=== PATIENT | male | born 1950 | race Caucasian/White ===

== ENCOUNTER → 2019-12-14 13:03 | Outpatient (BNVA) | payer OTHER, SELFPAY | PROVIDERS: Family Provider Nurse Practitioner; PCP Nurse Practitioner; Referring Provider Nurse Practitioner; Visit Provider Podiatrist Foot & Ankle Surgery | DX: M79.672 Pain in left foot (principal); M21.41 Flat foot [pes planus] (acquired), right foot; M21.42 Flat foot [pes planus] (acquired), left foot; M72.2 Plantar fascial fibromatosis | CPT/HCPCS: 73630 ==

== ENCOUNTER 2021-04-30 10:30 | Emergency (ER) | payer OTHER, MEDICARE, SELFPAY ==
[2021-04-30 11:30] VITALS: BP 148/77; PULSE 97; RESP 18; TEMP 37.3; O2SAT 97; BMI 24.4
[2021-04-30 13:12] LABS: Basophils # 0.1 10^3/uL (0.0-0.1); Basophils % 0.4 %; Eosinophils # 0.1 10^3/uL (0.0-0.8); Eosinophils % 0.5 %; Hematocrit 45.6 % (42.0-52.0); Hemoglobin 14.9 g/dL (11.7-16.6); Lymphocytes # 0.9 10^3/uL (0.8-4.8); Lymphocytes % 6.7 %; Mean Corpuscular HGB Conc 32.7 g/dL (30.0-36.0); Mean Corpuscular Hemoglobin 28.9 pg (28.0-34.0); Mean Corpuscular Volume 88.5 fl (80-94); Mean Platelet Volume 11.5 fL (7.4-10.4); Monocytes # 0.8 10^3/uL (0.2-0.9); Neutrophils # 11.26 10^3/uL (1.8-7.7); Neutrophils % 86.1 %; Nucleated Red Blood Cells % 0 %; Platelet Count 180 10^3/cmm (130-400); Red Blood Count 5.15 10^6/uL (4.1-5.3); White Blood Count 13.1 10^3/uL (4.0-10.0)
[2021-04-30 13:30] LABS: Alanine Aminotransferase 12 U/L (0-41); Albumin Level 4.2 g/dL (3.5-5.2); Alkaline Phosphatase 71 IU/L (40-130); Anion Gap 14.5 (5-19); Aspartate Amino Transferase 12 U/L (0-40); Blood Urea Nitrogen 13 mg/dL (8-23); Calcium 8.7 mg/dL (8.5-10.5); Carbon Dioxide 28 mmol/L (22-29); Chloride 100 mmol/L (98-107); Globulin 2.8 g/dL (1.3-4.6); Glucose 90 mg/dL (65-115); Osmolality Calculated 286 mOsm/kg (285-295); Potassium 4.5 mmol/L (3.5-5.1); Sodium 138 mmol/L (136-145); Total Bilirubin 0.5 mg/dL (0.15-1.2)
[2021-04-30 15:05] LABS: Add Urine Microscopic? YES; Bilirubin Urine 1+ (Negative); Blood Urine 2+ (Negative); Glucose Urine UA Norm (Normal); Ketones Urine 1+ (Negative); Leukocyte Esterase Urine 1+ (Negative); Nitrate Urine Positive (Negative); Protein Urine Neg (Negative); Specific Gravity, Urine 1.015 (1.005-1.030); Urine Appearance Cloudy (CLEAR); Urine Color Dark Yellow (Yellow); Urobilinogen Urine 1 mg/dL (Negative); pH Urine 5 (5-7)
[2021-04-30 15:06] LABS: Add Urine Culture? Yes; Bacteria Urine 4+ /hpf; Squamous Epithelial Cell Urine 0-4 /hpf (0-5); WBC Urine 25-40 /hpf (0-5)
--- NOTE | 2021-04-30 17:09 | ED_ITS ---
HPI - Male Genitourinary General: Chief complaint: Urogenital-Male Stated complaint: UTI COMPLICATIONS/EAR & MUSCLE ACHES/NAUSEA Time Seen by Provider: 04/30/21 16:54 History of Present Illness: HPI Narrative: Patient comes in complaining of muscle aches, nausea, vomiting, and dysuria. States his symptoms started 2 days ago. States that dysuria started yesterday and has gotten worse. He denies any flank pain, or fever. Associated symptoms: Reports dysuria, nausea and vomiting Review of Systems Const: Reports: body aches; Denies: fever(s) Eyes: Denies: change in vision or blurry vision ENMT: Denies: throat pain or odynophagia Card: Denies: chest pain or palpitations Resp: Denies: dyspnea or productive cough GI: Reports: nausea and vomiting; Denies: abdominal pain : Reports: dysuria; Denies: flank pain Musc: Denies: neck pain or back pain Skin/Breast: Denies: rash or pruritus Neuro: Denies: headache(s) or numbness in extremities Psych: Denies: anxiety or change in appetite Endo: Denies: polyuria or excessive sweating PFSH ED PFSH: Medical History Hypercholesteremia Social History Smoking and tobacco status: never smoked Alcohol intake: never Current occupational status: retired Physical Exam Const: COMMON NORMALS: no acute distress, patient oriented x3, healthy appearing and alert HENMT: COMMON NORMALS: normocephalic and atraumatic HEAD & SCALP: normocephalic and atraumatic Eye: COMMON NORMALS: Equal, round and reactive pupils present and EOMs intact bilaterally PUPIL: Yes Equal, round and reactive pupils present Neck/C-Spine: COMMON NORMALS: full ROM and supple Resp: COMMON NORMALS: normal respiratory effort, No retractions and No use of accessory muscles Cardio: COMMON NORMALS: regular rate and regular rhythm RATE: regular rate RHYTHM: regular rhythm GI: COMMON NORMALS: Normal to inspection, nondistended, normoactive bowel sounds present, Soft to palpation and non-tender PALPATION: Yes Soft to palpation Back/Pelvis: COMMON NORMALS: thoracic and lumbar spine normal to inspection and no thoracic nor lumbar tenderness Extremity: COMMON NORMALS: normal to inspection and full ROM Neuro: COMMON NORMALS: patient oriented x3 SENSORIUM/ORIENTATION: Yes alert Psych: COMMON NORMALS: mental status grossly normal and cooperative Skin: COMMON NORMALS: no rashes or lesions noted and no wounds GENERAL SKIN EXAM: no rashes or lesions noted Course ED course: Patient comes in due to not feeling well for the past couple of days. States he has had some nausea one episode of vomiting, body aches, and dysuria that started yesterday. Denies any flank pain, or fever. He has had chills. Labs done while in the waiting room are concerning for urinary tract infection. He states that he does not get frequent urinary tract infections. We will start him on antibiotics and discharge precautions return for worsening or changing symptoms. Vital Signs: Vital signs: Vital Signs Temperature 99.2 F 04/30/21 11:30 Pulse Rate 97 04/30/21 11:30 Respiratory Rate 18 04/30/21 11:30 Blood Pressure 148/77 04/30/21 11:30 Pulse Oximetry 97 04/30/21 11:30 MDM - Male Lab Data: Labs: Lab Results 04/30/21 04/30/21 04/30/21 11:00 12:57 12:57 WBC 13.1 10^3/uL H 10 ^3/uL (4.0-10.0) RBC 5.15 10^6/uL 10^6 /uL (4.1-5.3) Hgb 14.9 g/dL g/dL (11.7-16.6) Hct 45.6 % % (42.0-52.0) MCV 88.5 fl fl (80-94) MCH 28.9 pg pg (28.0-34.0) MCHC 32.7 g/dL g/dL (30.0-36.0) RDW 13.0 % % (12.1-15.1) Plt Count 180 10^3/cmm 10^3 /cmm (130-400) MPV 11.5 fL H fL (7.4-10.4) Neut % (Auto) 86.1 % % Lymph % (Auto) 6.7 % % [place] % (Auto) 6.0 % % Eos % (Auto) 0.5 % % Baso % (Auto) 0.4 % % Neut # (Auto) 11.26 10^3/uL H 1 0^3/uL (1.8-7.7) Lymph # (Auto) 0.9 10^3/uL 10^3/ uL (0.8-4.8) [place] # (Auto) 0.8 10^3/uL 10^3/ uL (0.2-0.9) Eos # (Auto) 0.1 10^3/uL 10^3/ uL (0.0-0.8) Baso # (Auto) 0.1 10^3/uL 10^3/ uL (0.0-0.1) Nucleated RBC % (a uto) 0 % % Nucleated RBCs # 0.0 /100WBC /100W BC Sodium 138 mmol/L mmol/L (136-145) Potassium 4.5 mmol/L mmol/L (3.5-5.1) Chloride 100 mmol/L mmol/L (98-107) Carbon Dioxide 28 mmol/L mmol/L (22-29) Anion Gap 14.5 (5-19) BUN 13 mg/dL mg/dL (8-23) Creatinine 1.0 mg/dL mg/dL (0.7-1.2) GFR Calculation Not Reportable Glucose 90 mg/dL mg/dL (65-115) Calculated Osmolal ity 286 mOsm/kg mOsm/ kg (285-295) Calcium 8.7 mg/dL mg/dL (8.5-10.5) Total Bilirubin 0.5 mg/dL mg/dL (0.15-1.2) AST 12 U/L U/L (0-40) ALT 12 U/L U/L (0-41) Alkaline Phosphata se 71 IU/L IU/L (40-130) Total Protein 7.0 g/dL g/dL (6.6-8.7) Albumin 4.2 g/dL g/dL (3.5-5.2) Globulin 2.8 g/dL g/dL (1.3-4.6) Urine Color Dark yellow (Yellow) Urine Appearance Cloudy (CLEAR) Urine pH 5 (5-7) Ur Specific Gravit y 1.015 (1.005-1.030) Urine Protein Neg (Negative) Urine Glucose (UA) Norm (Normal) Urine Ketones 1+ H (Negative) Urine Blood 2+ H (Negative) Urine Nitrate Positive H (Negative) Urine Bilirubin 1+ H (Negative) Urine Urobilinogen 1 mg/dL H mg/dL (Negative) Ur Leukocyte Rufina ase 1+ H (Negative) Urine RBC 5-10 /hpf H /hpf (0-2) Urine WBC 25-40 /hpf H /hpf (0-5) Ur Squamous Epith Cells 0-4 /hpf H /hpf (0-5) Amorphous Sediment Not Reportable Urine Bacteria 4+ /hpf H /hpf (NONE) Discharge Plan Discharge Patient Disposition: Home Clinical Impression: Urinary tract infection Qualifiers: Urinary tract infection type: acute cystitis Hematuria presence: without hematuria Qualified Code(s): N30.00 - Acute cystitis without hematuria Condition: Stable Prescriptions: New ciprofloxacin HCl 250 mg tablet 250 mg PO Q12H Qty: 10 RF: 0 No Action naproxen 500 mg tablet 500 mg PO BID RF: 0 simvastatin 20 mg tablet 20 mg PO DAILY RF: 0 (DME) Custom Accomadative orthotic with deep heel cup See Rx Instructions .ROUTE .MEDSUPPLY Qty: 1 RF: 0 Discharge Orders: Discharge ED (Routine); Ordered 04/30/21 Ordered By: Niko Sloan Referrals: Renate Corrales FNP [Primary Care Provider] - Activity Restrictions/Additional Instructions: Return to the emergency department for worsening abdominal pain, uncontrolled vomiting, or if your abdomen gets hard or distended. Coding Level of Care Code ED Professional Skateboarder for Javier Almanza
[2021-04-30 17:22] VITALS: BP 132/76; PULSE 80; RESP 17; O2SAT 97
== END 2021-04-30 17:24 | disposition home or self-care (01) ==
PROVIDERS: Physician Assistant; Emergency Provider Emergency Medicine; PCP Nurse Practitioner
DX: N30.00 Acute cystitis without hematuria (principal)
CPT/HCPCS: 80053; 81001; 85025; 87077; 87086; 87186; 99283

== ENCOUNTER 2021-09-11 15:10 | Outpatient (CLI) | payer OTHER, SELFPAY ==
--- NOTE | 2021-09-11 15:22 | USCV_ITS ---
Sixto Starks Age: 70 Gender: M : 1950 Exam Date: 09/11/2021 16:16 Ordering Phys: Renate Corrales Technologist: Santosh Bee [place] [facility] [place]: memory loss, fatigue Risk Factors: Previous Vascular Surgery: Right Brachial BP: / Left Brachial BP: / Right Left Velocity (cm/s) Spectral Plaque Velocity (cm/s) Spectral Plaque Syst/Diast Broadening Syst/Diast Broadening 106.90/24.30 Prox CCA 129.00/ 29.80 94.80/ 18.70 Mid CCA 77.20 / 17.60 71.70/ 19.80 Distal CCA 80.50 / 19.80 73.90/ 12.10 Prox ICA 95.90 / 33.10 78.30/ 28.70 Mid ICA 65.10 / 28.70 63.90/ 27.60 Distal ICA 70.60 / 37.50 127.90 ECA 90.40 0.83 ICA/CCA 0.84 Antegrade Vertebral Antegrade 48.00/ 14.50 cm/s 47.30/ 13.10 cm/s Tri Subclavian Tri 95.70 78.20 CONCLUSIONS Right ICA stenosis <50%. Intimal thickening Right cca. Moderate atheromatous plaque right carotid bulb/ICA. Left ICA stenosis <50%. Intimal thickening Left cca. Moderate plaque mid left CCA. Moderate atheromatous plaque left carotid bulb/ICA. Normal antegrade Doppler flow noted in the right vertebral artery. Normal antegrade Doppler flow noted in the left vertebral artery. Reji Cartwright MD (Electronically Signed) Final Date: 11 Sep 2021 16:58 S
== END 2021-09-11 15:11 | disposition home or self-care (01) ==
LOC: RAD 15:20
PROVIDERS: PCP Nurse Practitioner; Visit Provider Nurse Practitioner
DX: I65.23 Occlusion and stenosis of bilateral carotid arteries (principal); R41.3 Other amnesia; R53.83 Other fatigue
CPT/HCPCS: 93880

== ENCOUNTER 2021-09-15 20:00 | Outpatient (CLI) | payer OTHER, SELFPAY | END 2021-09-15 20:01 | disposition home or self-care (01) | LOC: SLEEP 09-16 06:40 | PROVIDERS: PCP Nurse Practitioner; Visit Provider Nurse Practitioner | DX: G47.33 Obstructive sleep apnea (adult) (pediatric) (principal); R53.83 Other fatigue; R41.3 Other amnesia; R09.02 Hypoxemia | CPT/HCPCS: 95810 ==

== ENCOUNTER 2021-10-01 08:46 | Outpatient (CLI) | payer OTHER, SELFPAY ==
--- NOTE | 2021-10-01 08:52 | CT_ITS ---
WS: [id number] CT NECK TECHNIQUE: Contrast-enhanced CT of the neck with coronal and sagittal reformatted images. CLINICAL INFORMATION: LOCALIZED SWELLING,MASS, LUMP, NECK COMPARISON: None. DLP: 284.[address] scans at [facility] use at least one of these dose optimization techniques: automated e xposure control; mA and/or kV adjustment per patient size (includes targeted exams where dose is matc hed to clinical indication); or iterative reconstruction. FINDINGS: Dental artifact degrades some images at the tongue base. Enhancing solid soft tissue lesion in the RI GHT floor of mouth and sublingual space appears to involve the RIGHT sublingual gland and adjacent to or involving the RIGHT mylohyoid. This is deep to the RIGHT mandible with no evidence of mandibular erosion. Findings suspicious for neoplasm and recommend further evaluation with direct visualization. Mild mucosal thickening ethmoid air cells. 11 mm retention cyst LEFT maxillary sinus. Mild mucosal th ickening sphenoid sinus. Mastoid air cells well aerated. Parotid glands are normal. Normal submandibu lar glands. Normal parapharyngeal fat. Normal posterior nasopharynx. Normal vallecula and piriform si nuses. Normal epiglottis. No evidence of supraglottic or glottic mass. Normal thyroid gland. Lung api sugar are well aerated. No cervical lymphadenopathy. Moderate spondylitic changes cervical spine. Slight anterolisthesis C7 o n T1. CT/CT neck w con* [id number] IMPRESSION: 1. Enhancing 1.7 x 1.0 cm solid appearing lesion along the RIGHT floor of the mouth sublingual space likely involving the sublingual gland and adjacent to th e mylohyoid. No evidence of bony erosion. Findings suspicious for neoplasm and recommend further evaluation with direct visualization. This can also be evalua jena with MRI without and with gadolinium enhancement. 2. No cervical lymphadenopathy. 3. No evidence of supraglottic or glottic mass. 4. Normal submandibular and parotid glands.
[2021-10-01 09:53] LABS: Blood Urea Nitrogen 13 mg/dL (8-23)
[2021-10-01] MEDS: iohexol 300 mg/mL 50 mL Btl IV (09:53)
== END 2021-10-01 08:47 | disposition home or self-care (01) ==
LOC: RAD 08:48
PROVIDERS: PCP Nurse Practitioner; Visit Provider Specialist
DX: R22.1 Localized swelling, mass and lump, neck (principal)
CPT/HCPCS: 70491; 82565; 84520

== ENCOUNTER 2021-10-20 10:01 | Outpatient (CLI) | payer OTHER, SELFPAY ==
--- NOTE | 2021-10-20 10:15 | MR_ITS ---
WS: [id number] MRI NECK with and without CONTRAST. COMPARISON: CT 10/01/2021 Multiplanar, multisequence imaging is performed with and without contrast. Sagittal and axial T1 fat sat sequences post-ProHance 17 cc IV. Marker is placed along the RIGHT mandible in the patient directed area of palpable abnormality. At th is site there is no mass or distortion of the soft tissues. No mass is identified. Again noted is the mild asymmetry of the RIGHT mylohyoid muscle as compared to the LEFT. This was als o seen on the recent CT. There is very mild enhancement and enlargement of the RIGHT mylohyoid muscle . On today's examination there some very mild thickening and asymmetry of the mylohyoid muscle but I cannot see a discrete mass. Soft tissue involving the tongue base and through the oropharynx and naso pharynx are negative. No cervical chain lymph nodes are identified. Mild mucoperiosteal thickening and small mucous retention cysts in the maxillary sinuses. Submandibul ar glands and the parotid glands are negative. Mild cervical spondylitic changes. Upper lung lewis are negative. MR/MR orbit face neck wo/w* [id number] IMPRESSION: 1. No soft tissue mass or signal abnormality in the region of the palpable abn ormality over the RIGHT mandible as directed by the patient. 2. Again noted is mild asymmetry and enlargement of the RIGHT mylohyoid muscle as compared to the LEFT. No discrete enhancing mass identified. This may be a very subtle lesion as noted on a prior neck CT. Minimal change in signal. Biops y may be necessary to exclude an underlying lesion. 3. No cervical chain adenopathy.
== END 2021-10-20 10:02 | disposition home or self-care (01) ==
LOC: RAD 10:04
PROVIDERS: PCP Nurse Practitioner; Visit Provider Otolaryngology
DX: D37.09 Neoplasm of uncertain behavior of other specified sites of the oral cavity (principal)
CPT/HCPCS: 70543

== ENCOUNTER 2021-10-28 12:30 | Outpatient (CLI) | payer OTHER, SELFPAY ==
--- NOTE | 2021-10-28 12:58 | ECG_ITS ---
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 Measurements Intervals [place] Rate: 74 P: 82 UT: 188 QRS: 84 QRSD: 114 T: 66 QT: 373 QTc: 416 Interpretive Statements SINUS RHYTHM INCOMPLETE RIGHT BUNDLE BRANCH BLOCK [90+ ms QRS DURATION, TERMINAL R IN V1/V2, 40+ ms S IN I/aVL/V4/V5/V6] No previous ECG available for comparison Electronically Signed On 10-28-2021 20:14:12 CDT by Oz Bolton M.D. [id number]
== END 2021-10-28 12:31 | disposition home or self-care (01) ==
LOC: RT 12:31
PROVIDERS: PCP Nurse Practitioner; Visit Provider Specialist
DX: Z01.810 Encounter for preprocedural cardiovascular examination (principal); R22.0 Localized swelling, mass and lump, head; I45.10 Unspecified right bundle-branch block
CPT/HCPCS: 93005

== ENCOUNTER 2021-11-21 10:50 | Observation (INO) | payer OTHER, MEDICARE, SELFPAY ==
[2021-11-21] VITALS (8 sets, daily range): BP systolic 123–143; BP diastolic 67–91; PULSE 70–88; RESP 15–23; TEMP 36.8–36.9; O2SAT 93–96; BMI 23.1
--- NOTE | 2021-11-21 11:16 | ECG_ITS ---
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 Measurements Intervals [place] Rate: 77 P: 76 NE: 180 QRS: 65 QRSD: 110 T: 56 QT: 372 QTc: 423 Interpretive Statements SINUS RHYTHM INCOMPLETE RIGHT BUNDLE BRANCH BLOCK [90+ ms QRS DURATION, TERMINAL R IN V1/V2, 40+ ms S IN I/aVL/V4/V5/V6] Compared to ECG 11/21/2021 13:54:58 Ventricular premature complex(es) no longer present Electronically Signed On 11-21-2021 20:29:32 CDT by Gelacio Espinal M.D. [email or web address] [email or web address]/store/[id number] f
--- NOTE | 2021-11-21 11:16 | XR_ITS ---
WS: [id number] XR chest 1V portable [id number] REASON FOR EXAM: dyspnea/cough FINDINGS: Mild tortuosity and ectasia of the thoracic aorta. Normal heart size. Calcified granulomatous disease in both hemithoraces. No lung nodule or lung mass. No acute pulmonary parenchymal or pleural abnormality. Previous rotator cuff tendon repair right shoulder. Mild thoracic scoliosis convex left with changes of degenerative spondylosis. XR/XR chest 1V portable [id number] IMPRESSION: No acute chest abnormality.
[2021-11-21 12:02] LABS: Basophils % 0.3 %; Eosinophils % 0.3 %; Hematocrit 42.3 % (42.0-52.0); Hemoglobin 13.8 g/dL (11.7-16.6); Lymphocytes # 0.8 10^3/uL (0.8-4.8); Lymphocytes % 6.5 %; Mean Corpuscular HGB Conc 32.6 g/dL (30.0-36.0); Mean Corpuscular Hemoglobin 29.4 pg (28.0-34.0); Mean Platelet Volume 11.6 fL (7.4-10.4); Monocytes % 8.1 %; Neutrophils # 9.92 10^3/uL (1.8-7.7); Neutrophils % 84.4 %; Nucleated Red Blood Cells % 0 %; Platelet Count 153 10^3/cmm (130-400); Red Cell Distribution Width 12.9 % (12.1-15.1); White Blood Count 11.8 10^3/uL (4.0-10.0)
--- NOTE | 2021-11-21 12:16 | W.ED.CHESTPA ---
HPI - Chest Pain General: Chief Complaint: Chest Pain Stated Complaint: chest pain Time Seen by Provider: 11/21/21 11:12 Source: patient Mode of arrival: ambulatory Limitations: no limitations History of Present Illness: 70-year-old male comes in complaining of having had 2 syncopal episodes this morning. She recently had a surgery to remove a mass under his tongue and he was having follow-up with his primary care and had these brief syncopal episodes. He also had some accompanying chest discomfort that lasted just a few minutes and is resolved now he did receive aspirin at the [place]. He is completely asymptomatic at this time. No history of coronary disease patient has no history of stroke he is not diabetic. Does have a history of hyperlipidemia. MD complaint: chest pain Onset (ago): hour(s) Prior episodes: No Onset: during rest Pain location: left chest Pain radiation: none Severity: mild Quality: sharp Relieving factors: nothing Exacerbating factors: nothing Associated symptoms: Deny abdominal pain, diaphoresis, dyspnea, fever(s), leg edema, nausea, palpitations, sense of impending doom, syncope or vomiting Treatment prior to arrival: none Review of Systems Const: Denies: fever(s), chills, body aches, fatigue, malaise or diaphoresis ENMT: Denies: throat pain, ear or mastoid pain, nasal discharge or nasal congestion Card: Denies: chest pain, palpitations or syncope Resp: Denies: dyspnea, productive cough, non-productive cough or wheezing GI: Denies: abdominal pain, nausea or vomiting : Denies: flank pain, difficulty urinating, dysuria, urinary frequency or urinary urgency Skin/Breast: Denies: rash or pruritus Neuro: Denies: headache(s) PFSH ED PFSH: Medical History History of malignant melanoma Hypercholesteremia Rotator cuff arthropathy of right shoulder Social History Smoking and tobacco status: former smoker Alcohol intake: never Current occupational status: retired Physical Exam Const: GENERAL APPEARANCE: cooperative and comfortable ORIENTATION/CONSCIOUSNESS: Yes awake, Yes oriented to person, Yes oriented to place and Yes oriented to time HENMT: COMMON NORMALS: normocephalic, atraumatic and hearing grossly normal bilaterally HEAD & SCALP: normocephalic and atraumatic Eye: COMMON NORMALS: Equal, round and reactive pupils present, EOMs intact bilaterally, conjunctivae normal and no scleral icterus CONJUNCTIVA: Yes conjunctivae normal PUPIL: Yes Equal, round and reactive pupils present Lymph: LYMPHATIC: no lymphadenopathy noted and no lymphedema noted Resp: COMMON NORMALS: normal respiratory effort, No retractions, No use of accessory muscles and clear to auscultation bilaterally AUSCULTATION: clear to auscultation bilaterally Cardio: COMMON NORMALS: regular rate, regular rhythm and No murmurs present (Cardio) RATE: regular rate RHYTHM: regular rhythm GI: COMMON NORMALS: Soft to palpation and No hepatosplenomegaly present AUSCULTATION: Yes normoactive bowel sounds PALPATION: Yes Soft to palpation, No Tenderness to palpation present (GI), No Guarding due to palpation present (GI) and Yes No hepatosplenomegaly present Extremity: COMMON NORMALS: normal to inspection, capillary refill normal, no clubbing, cyanosis or edema, no calf tenderness and no pedal edema Neuro: SENSORIUM/ORIENTATION: Yes oriented to person, Yes oriented to place and Yes oriented to time Skin: COMMON NORMALS: no rashes or lesions noted GENERAL SKIN EXAM: no rashes or lesions noted Course Vital Signs: Vital signs: Vital Signs Temperature 98.5 F 11/21/21 11:06 Pulse Rate 83 11/21/21 16:13 Respiratory Rate 17 11/21/21 16:13 Blood Pressure 143/91 11/21/21 16:13 Pulse Oximetry 93 11/21/21 16:13 MDM - Chest Pain Medical Decision Making Second troponin came back negative and we are getting close to having the patient discharged and he had a nonsustained run of V. tach. He was asymptomatic with this. Given his 2 syncopal episodes that seem to be without provocation this is concerning we will admit the patient discussed with hospitalist and consulted cardiology Medical Records I reviewed the patient's medical records. Lab Data I reviewed the patient's lab results. : 11/21/21 11:55 11/21/21 11:35 Radiology Impressions Chest X-Ray 11/21/21 11:16 IMPRESSION: No acute chest abnormality. Laboratory Results WBC 11.8 10^3/uL (4.0-10.0) H 11/21/21 11:55 Corrected WBC Cancelled 11/21/21 11:35 RBC 4.70 10^6/uL (4.1-5.3) 11/21/21 11:55 Hgb 13.8 g/dL (11.7-16.6) 11/21/21 11:55 Hct 42.3 % (42.0-52.0) 11/21/21 11:55 MCV 90.0 fl (80-94) 11/21/21 11:55 MCH 29.4 pg (28.0-34.0) 11/21/21 11:55 MCHC 32.6 g/dL (30.0-36.0) 11/21/21 11:55 RDW 12.9 % (12.1-15.1) 11/21/21 11:55 Plt Count 153 10^3/cmm (130-400) 11/21/21 11:55 MPV 11.6 fL (7.4-10.4) H 11/21/21 11:55 Gran % Cancelled 11/21/21 11:35 Neut % (Auto) 84.4 % 11/21/21 11:55 Lymph % (Auto) 6.5 % 11/21/21 11:55 [place] % (Auto) 8.1 % 11/21/21 11:55 Eos % (Auto) 0.3 % 11/21/21 11:55 Baso % (Auto) 0.3 % 11/21/21 11:55 Neut # (Auto) 9.92 10^3/uL (1.8-7.7) H 11/21/21 11:55 Lymph # (Auto) 0.8 10^3/uL (0.8-4.8) 11/21/21 11:55 [place] # (Auto) 1.0 10^3/uL (0.2-0.9) H 11/21/21 11:55 Eos # (Auto) 0.0 10^3/uL (0.0-0.8) 11/21/21 11:55 Baso # (Auto) 0.0 10^3/uL (0.0-0.1) 11/21/21 11:55 Absolute Gran (auto) Cancelled 11/21/21 11:35 Nucleated RBC % (auto) 0 % 11/21/21 11:55 Nucleated RBCs # 0.0 /100WBC 11/21/21 11:55 Sodium 139 mmol/L (136-145) 11/21/21 11:35 Potassium 4.5 mmol/L (3.5-5.1) 11/21/21 11:35 Chloride 101 mmol/L (98-107) 11/21/21 11:35 Carbon Dioxide 27 mmol/L (22-29) 11/21/21 11:35 Anion Gap 15.5 (5-19) 11/21/21 11:35 BUN 21 mg/dL (8-23) 11/21/21 11:35 Creatinine 1.1 mg/dL (0.7-1.2) 11/21/21 11:35 GFR Calculation Not Reportable 11/21/21 11:35 Glucose 99 mg/dL (65-115) 11/21/21 11:35 Calculated Osmolality 291 mOsm/kg (285-295) 11/21/21 11:35 Calcium 9.6 mg/dL (8.5-10.5) 11/21/21 11:35 Total Bilirubin 0.6 mg/dL (0.15-1.2) 11/21/21 11:35 AST 13 U/L (0-40) 11/21/21 11:35 ALT 13 U/L (0-41) 11/21/21 11:35 Alkaline Phosphatase 60 IU/L (40-130) 11/21/21 11:35 Troponin T Baseline 16 ng/L (0-15) H 11/21/21 11:35 Troponin T 120 Minute 16.07 ng/L (0-15) H 11/21/21 13:50 Delta Troponin T 0.07 ABS# (0-10) 11/21/21 13:50 Total Protein 6.5 g/dL (6.6-8.7) L 11/21/21 11:35 Albumin 4.6 g/dL (3.5-5.2) 11/21/21 11:35 Globulin 1.9 g/dL (1.3-4.6) 11/21/21 11:35 Discharge Plan Discharge Patient Disposition: Admitted As Inpatient Clinical Impression: Ventricular tachyarrhythmia, Syncope Condition: Stable Coding Level of Care Code ED Lead Accountant for Javier Fwd Exam Comprehensive NIH stroke score NIHSS Level Of Consciousness - 1a: 0 Level Of Consciousness Questions - 1b: Both Correct Level Of Consciousness Commands - 1c: Both Correct Best Gaze - 2: Normal Visual Price - 3: No Visual Loss Facial Palsy - 4: Normal Motor Arm Right - 5: No Drift Motor Arm Left - 5: No Drift Motor Leg Right - 6: No Drift Motor Leg Left - 6: No Drift Limb Ataxia - 7: Absent Sensory - 8: Normal Best Language - 9: No Aphasia Dysarthia - 10: Normal Extinction And Inattention - 11: 0 Score Total Score: 0
[2021-11-21 12:22] LABS: Alanine Aminotransferase 13 U/L (0-41); Albumin Level 4.6 g/dL (3.5-5.2); Alkaline Phosphatase 60 IU/L (40-130); Aspartate Amino Transferase 13 U/L (0-40); Blood Urea Nitrogen 21 mg/dL (8-23); Calcium 9.6 mg/dL (8.5-10.5); Carbon Dioxide 27 mmol/L (22-29); Chloride 101 mmol/L (98-107); Globulin 1.9 g/dL (1.3-4.6); Glucose 99 mg/dL (65-115); Osmolality Calculated 291 mOsm/kg (285-295); Sodium 139 mmol/L (136-145); Total Bilirubin 0.6 mg/dL (0.15-1.2); Total Protein 6.5 g/dL (6.6-8.7); Troponin(5th) Baseline 16 ng/L (0-15)
[2021-11-21 12:25] LABS: Anion Gap 15.5 (5-19); Potassium 4.5 mmol/L (3.5-5.1)
--- NOTE | 2021-11-21 13:16 | ECG_ITS ---
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 Measurements Intervals [place] Rate: 85 P: 76 [place]: 168 QRS: 66 QRSD: 114 T: 53 QT: 363 QTc: 432 Interpretive Statements SINUS RHYTHM WITH OCCASIONAL VENTRICULAR PREMATURE COMPLEXES INCOMPLETE RIGHT BUNDLE BRANCH BLOCK [90+ ms QRS DURATION, TERMINAL R IN V1/V2, 40+ ms S IN I/aVL/V4/V5/V6] Compared to ECG 11/21/2021 11:03:19 Ventricular premature complex(es) now present Electronically Signed On 11-21-2021 20:32:30 CDT by Gelacio Espinal M.D. [id number]
[2021-11-21 14:19] LABS: Troponin 5 2HR 16.07 ng/L (0-15)
[2021-11-21 14:23] LABS: Troponin 5 2HR Delta 0.07 ABS# (0-10)
--- NOTE | 2021-11-21 15:36 | USCV_ITS ---
Sixto Starks Age: 70 Gender: M : 1950 Exam Date: 11/21/2021 15:58 Ordering Phys: Gustavo Scott MD Technologist: JOSE LUIS Exam Location: [facility] [place] Indication: chest pain BP: 143 / 91 HR: 122 Rhythm: Sinus Technical Quality: adequate MEASUREMENTS (Male / Female) Normal Values 2D ECHO LV Diastolic Diameter PLAX 5.0 cm 4.2 - 5.9 / 3.9 - 5.3 cm LV Systolic Diameter PLAX 3.0 cm IVS Diastolic Thickness 1.0 cm 0.6 - 1.0 / 0.6 - 0.9 cm IVS Systolic Thickness 1.5 cm LVPW Diastolic Thickness 1.1 cm 0.6 - 1.0 / 0.6 - 0.9 cm LVPW Systolic Thickness 1.7 cm LVOT Diameter 2.0 cm LV Ejection Fraction 2D Teich 71.2 % LV Ejection Fraction MOD 2C 54.9 % LV Ejection Fraction 2C AL 53.9 % LA Diameter 3.7 cm LA Width 4.2 cm LA Height 5.7 cm Aorta at Sinotubular Diameter 2.5 cm M-MODE MV E Point Septal Separation 0.5 cm DOPPLER AV Peak Velocity 143.0 cm/s LVOT Peak Velocity 90.0 cm/s AV Area Cont Eq vti 2.2 cm squared AV Area Cont Eq pk 2.1 cm squared MV Area PHT 4.5 cm squared Mitral E to A Ratio 0.7 MV E' Velocity 32.0 cm/s Mitral E to MV E' Ratio 6.8 Mitral E to LV E' Lateral Ratio 8.0 Mitral E to LV E' Septal Ratio 6.0 TR Peak Velocity 360.7 cm/s TR Peak Gradient 52.0 mmHg Right Atrial Pressure 5.0 mmHg Pulmonary Artery Systolic Pressu 57.0 mmHg PV Peak Velocity 67.0 cm/s FINDINGS Left Ventricle Normal LV size with a borderline low ejection fraction of 50 to 55%. Mild hypokinesis of the anteroapical region. Right Ventricle The right ventricle is normal in size and function. Right Atrium Mildly increased right atrial size. Left Atrium Mildly increased left atrial size. Mitral Valve Thickened mitral valve. Aortic Valve No gross abnormalities noted Tricuspid Valve Trace tricuspid valve regurgitation. Pulmonic Valve No gross abnormalities noted Pericardium No pericardial effusion. Aorta Normal ascending aorta dimension. IVC Normal inferior vena cava. CONCLUSIONS Normal LV size with a borderline low ejection fraction of 50 to 55%. Wall motion abnormality as mentioned above Mild biatrial enlargement. Trace tricuspid valve regurgitation. There is no pericardial effusion. There are no intracardiac masses. No similar previous studies are available for comparison Dr Oz Bolton MD FAC (Electronically Signed) Final Date: 21 November 2021 19:13 S
--- NOTE | 2021-11-21 15:37 | P.HP_ITS ---
Providers/Chief Complaint Primary Care Provider: SYDNEY De La Garza Chief Complaint: chest pain History of Present Illness Sixto Starks is a 70 year old male with past medical history of malignant melanoma, came to the ER from his ENT clinic Where patient likely had presyncopal episode, when I talked to the patient he denied any evident loss of consciousness, though he said that he felt lightheaded, patient was also complaining of mild substernal chest tightness, denied any nausea vomiting, diaphoresis, Headache, further work-up in the ER revealed nonsustained ventricular tachycardia. Pertinent imaging studies: X-ray chest: No acute findings EKG: Sinus rhythm with occasional PVCs, incomplete right bundle branch block Pertinent labs: WBC 11.8, H&H:13/42 , PLT : 153 , sodium 139 potassium 4.5 , BUN serum creatinine: 21/1.1 , Troponin: 16 , 16 , 13 Review of Systems 2 General: Reports: 10 or more systems reviewed and unremarkable except in HPI and below Const: Denies: fever(s), chills, body aches, change in appetite or diaphoresis Card: Denies: palpitations, edema, swelling of feet/ankles, dyspnea on exertion, orthopnea or leg pain with exertion Resp: Denies: dyspnea, productive cough, wheezing or pain on inspiration GI: Denies: abdominal pain, nausea, vomiting, diarrhea or constipation : Denies: flank pain or difficulty urinating Musc: Denies: back pain, extremity pain or extremity swelling Neuro: Denies: headache(s), difficulty walking or confusion Medications/Allergies Home Medications Medication Instructions Recorded Confirmed Last Taken Type Custom Accomadative orthotic with #1 each 12/14/19 11/21/21 Unknown Rx deep heel cup simvastatin 20 mg tablet 20 mg PO DAILY 12/14/19 11/21/21 11/20/21 History celecoxib 100 mg capsule 100 mg PO BID 10/06/21 11/21/21 Unknown History lidocaine HCl 4 % topical cream 1 applic TOPICAL BID 10/06/21 11/21/21 Unknown History (Aspercreme (lidocaine HCl)) testosterone 20.25 mg/1.25 gram 1 pump TOPICAL DAILY 10/06/21 11/21/21 11/20/21 History (1.62 %) transdermal gel pump (AndroGel) ketoconazole 2 % shampoo 1 applic TOPICAL .2 x weekly #120 10/16/21 11/21/21 Unknown Rx ml fluocinolone 0.01 % scalp oil and 1 ea TOPICAL DAILY #118.28 ml 11/07/21 11/21/21 Unknown Rx shower cap clindamycin HCl 300 mg capsule 300 mg PO QID 11/21/21 11/21/21 11/20/21 History Allergies Allergy/AdvReac Type Severity Reaction Status Date / Time terbinafine Allergy loss of Verified 11/21/21 12:02 taste PFSH Acute PFSH: Medical History History of malignant melanoma Hypercholesteremia Rotator cuff arthropathy of right shoulder Social History Smoking and tobacco status: former smoker Alcohol intake: never Current occupational status: retired Vitals/I&O/Wt Last Vital Signs Temp 98.5 F 11/21/21 11:06 Pulse 88 11/21/21 13:15 Resp 23 H 11/21/21 13:15 BP 143/91 11/21/21 13:15 Pulse Ox 96 11/21/21 13:15 Weight last 48 hrs Weight 79.379 kg Physical Exam Const: COMMON NORMALS: patient oriented x3 HENMT: COMMON NORMALS: normocephalic and atraumatic HEAD & SCALP: normocephalic and atraumatic EXTERNAL EAR: Yes external ears normal Chest: CHEST: Yes Symmetrical chest wall rise Resp: COMMON NORMALS: clear to auscultation bilaterally EFFORT & INSPECTION: Yes symmetric chest movement AUSCULTATION: clear to auscultation bilaterally Cardio: COMMON NORMALS: regular rate, regular rhythm, S1 normal heart sound present, S2 normal heart sound present, No gallops present (Cardio), No murmurs present (Cardio), No rub (Cardio) and Peripheral pulses 2+ throughout RATE: regular rate RHYTHM: regular rhythm HEART SOUNDS: S1 normal heart sound present and S2 normal heart sound present PERIPHERAL PULSES: Peripheral pulses 2+ throughout GI: COMMON NORMALS: Normal to inspection, nondistended, normoactive bowel sounds present, Soft to palpation, non-tender, No hepatosplenomegaly present and no masses AUSCULTATION: Yes normoactive bowel sounds PALPATION: Yes Soft to palpation and Yes No hepatosplenomegaly present RECTAL EXAM: Yes deferred Extremity: COMMON NORMALS: no clubbing, cyanosis or edema and no pedal edema Neuro: COMMON NORMALS: patient oriented x3 Data : 11/21/21 11:55 11/21/21 11:35 A&P Assessment and plan (1) Ventricular tachyarrhythmia: Status: Acute (2) History of malignant melanoma: Status: Acute Plan 70 year old male with past medical history of malignant melanoma, came to the ER from his ENT clinic Where patient likely had presyncopal episode, when I talked to the patient he denied any evident loss of consciousness, though he said that he felt lig htheaded, patient was also complaining of mild substernal chest tightness, denied any nausea vomiting, diaphoresis. Assessment: Nonsustained ventricular tachycardia History of malignant melanoma Plan: Follow 2D echo Monitor electrolytes : Continue telemetry monitoring Cardiology on board CODE STATUS: Full code DVT prophylaxis: On Lovenox Attestations Medical Necessity Statement*: Patient is in hospital for management of NSVT. Anticipated length of stay greater than 2 midnights Time Spent in Patient Care: Greater than 35 minutes (>than 50% of time spent in counselling and/or direct pt care on unit) . Coding Level of Care Code Acute Paper Bag Maker for Chg Fwd Exam Detailed Diagnoses Ventricular tachyarrhythmia I47.2 History of malignant melanoma Z85.820
--- NOTE | 2021-11-21 16:55 | PM.CONSULT ---
Providers/Reason For Consult Consulting Physician/Specialty*: NIRANJAN Bolton MD/cardiology Reason for Consult*: Patient has episodes of near syncope/nonsustained V. tach on the monitor Requesting Physician: Dr. Scott/Dr. Singer Attending Physician: Dr. Scott Primary Care Provider: SYDNEY De La Garza History of Present Illness History of Present Illness By Celeste Starks is a 70 year old male who is admitted to hospital through the emergency room, where he presented with complaints of an episode of near syncope while being at a doctor's office. He was found to have nonsustained ventricular tachycardia on the emergency room telemetry. Cardiology consult is requested for further cardiac evaluation and recommendations. This patient has no previous history for any cardiac illness. He had a submandibular gland biopsy? few days ago by an ENT surgeon. Today he went back to his office for a follow-up evaluation. While being examined, he had an episode of palpitation followed by nausea and vomiting. He was complaining of palpitation at that time. He felt very dizzy and weak. The symptom relative for couple of minutes. He got better after few minutes. He was recommended to be evaluated in the emergency room at that time. Apparently the patient decided not to come to the emergency room. He went to the primary care provider at the [place] [facility]. He was given an aspirin to chew and was advised to come to the emergency room. Patient has not had any recurrence of the symptoms since the initial event. In the emergency room, patient had the basic work-up. He was found to have no evidence of myocardial injury. EKG was unremarkable. While waiting in the emergency room for discharge, he went into an episode of nonsustained ventricular tachycardia of 15 beats. He had a brief episode of palpitation at that time. Did not have any nausea or vomiting. Based on his symptoms and the current findings, it was decided to admit him to hospital for further evaluation management. Patient has no previous history for any cardiac illness. He has a questionable history of elevated blood pressure but never been treated. He has a history of dyslipidemia. Also has arthritis involving the small joints. No history for any syncopal episodes in the past. No history for severe peripheral artery disease. No history for any kidney disease, liver disease or bleeding disorders. Review of Systems Narrative: CONSTITUTIONAL: No fever or chills. EYES: No blurring of vision or other visual disturbances lately. ENT: No hoarseness of voice, has been having some problems with the speech because of the recent oral surgery CARDIOVASCULAR: As mentioned above. RESPIRATORY: No significant cough. GASTROINTESTINAL: As mentioned above GENITOURINARY: No dysuria or hematuria. INTEGUMENTARY: No skin rashes or history of skin cancer. NEURO: As mentioned above PSYCHIATRIC: No history of psychosis or major depression. HEMATOLOGIC: No bleeding disorders or significant anemia. ENDOCRINE: No history of polyuria or polydipsia. MUSCULOSKELETAL: No recent joint pain or swelling. ALLERGY/IMMUNOLOGY: As mentioned above. Medications/Allergies Home Medications Medication Instructions Recorded Confirmed Last Taken Type Custom Accomadative orthotic with #1 each 12/14/19 11/21/21 Unknown Rx deep heel cup simvastatin 20 mg tablet 20 mg PO DAILY 12/14/19 11/21/21 11/20/21 History celecoxib 100 mg capsule 100 mg PO BID 10/06/21 11/21/21 Unknown History lidocaine HCl 4 % topical cream 1 applic TOPICAL BID 10/06/21 11/21/21 Unknown History (Aspercreme (lidocaine HCl)) testosterone 20.25 mg/1.25 gram 1 pump TOPICAL DAILY 10/06/21 11/21/21 11/20/21 History (1.62 %) transdermal gel pump (AndroGel) ketoconazole 2 % shampoo 1 applic TOPICAL .2 x weekly #120 10/16/21 11/21/21 Unknown Rx ml fluocinolone 0.01 % scalp oil and 1 ea TOPICAL DAILY #118.28 ml 11/07/21 11/21/21 Unknown Rx shower cap clindamycin HCl 300 mg capsule 300 mg PO QID 11/21/21 11/21/21 11/20/21 History Allergies Allergy/AdvReac Type Severity Reaction Status Date / Time terbinafine Allergy loss of Verified 11/21/21 12:02 taste PFSH Acute PFSH: Medical History History of malignant melanoma Hypercholesteremia Rotator cuff arthropathy of right shoulder Social History Smoking and tobacco status: former smoker Alcohol intake: never Current occupational status: retired Vitals/I&O/Wt Last Vital Signs Temp 98.5 F 11/21/21 11:06 Pulse 83 11/21/21 16:13 Resp 17 11/21/21 16:13 BP 143/91 11/21/21 16:13 Pulse Ox 93 11/21/21 16:13 Weight last 48 hrs Weight 175 lb Physical Exam Narrative: GENERAL: The patient is alert and oriented times three. Not in any acute distress. HEENT: No significant pallor, icterus or lymphadenopathy.Oral cavity: There are no mucous membrane lesions. Fundus is not visualized NECK: Trachea appears to be central. No masses noted. No JVD or thyromegaly appreciated. RESPIRATORY: Chest is symmetrical. No intercostals muscle retraction or any accessory muscle activation. There is no chest wall tenderness. Breath sounds are heard bilaterally. No rales or rhonchi heard. No evidence of any consolidation. BREASTS: Deferred. HEART: The heart sounds are normal. No S3 or S4. No significant murmurs. No pericardial rub ABDOMEN: No vessel pulsations or distention. No tenderness. No organomegaly appreciated. Bowel sounds are normally heard. : Deferred. RECTAL: Deferred. LYMPHATIC: No lymphadenopathy noted in the neck. EXTREMITIES: No edema or cyanosis. No clubbing. MUSCULOSKELETAL: No acute joint deformities or swelling SKIN: There are no significant rashes or ecchymosis NEUROPSYCHIATRIC: The patient is alert and oriented x3. Appears to be in a good mood. No tremors or rigidity noted. Data : 11/21/21 11:55 11/21/21 11:35 Other Labs: Laboratory Last Values WBC 11.8 10^3/uL (4.0-10.0) H 11/21/21 11:55 Corrected WBC Cancelled 11/21/21 11:35 RBC 4.70 10^6/uL (4.1-5.3) 11/21/21 11:55 Hgb 13.8 g/dL (11.7-16.6) 11/21/21 11:55 Hct 42.3 % (42.0-52.0) 11/21/21 11:55 MCV 90.0 fl (80-94) 11/21/21 11:55 MCH 29.4 pg (28.0-34.0) 11/21/21 11:55 MCHC 32.6 g/dL (30.0-36.0) 11/21/21 11:55 RDW 12.9 % (12.1-15.1) 11/21/21 11:55 Plt Count 153 10^3/cmm (130-400) 11/21/21 11:55 MPV 11.6 fL (7.4-10.4) H 11/21/21 11:55 Gran % Cancelled 11/21/21 11:35 Neut % (Auto) 84.4 % 11/21/21 11:55 Lymph % (Auto) 6.5 % 11/21/21 11:55 [place] % (Auto) 8.1 % 11/21/21 11:55 Eos % (Auto) 0.3 % 11/21/21 11:55 Baso % (Auto) 0.3 % 11/21/21 11:55 Neut # (Auto) 9.92 10^3/uL (1.8-7.7) H 11/21/21 11:55 Lymph # (Auto) 0.8 10^3/uL (0.8-4.8) 11/21/21 11:55 [place] # (Auto) 1.0 10^3/uL (0.2-0.9) H 11/21/21 11:55 Eos # (Auto) 0.0 10^3/uL (0.0-0.8) 11/21/21 11:55 Baso # (Auto) 0.0 10^3/uL (0.0-0.1) 11/21/21 11:55 Absolute Gran (auto) Cancelled 11/21/21 11:35 Nucleated RBC % (auto) 0 % 11/21/21 11:55 Nucleated RBCs # 0.0 /100WBC 11/21/21 11:55 Sodium 139 mmol/L (136-145) 11/21/21 11:35 Potassium 4.5 mmol/L (3.5-5.1) 11/21/21 11:35 Chloride 101 mmol/L (98-107) 11/21/21 11:35 Carbon Dioxide 27 mmol/L (22-29) 11/21/21 11:35 Anion Gap 15.5 (5-19) 11/21/21 11:35 BUN 21 mg/dL (8-23) 11/21/21 11:35 Creatinine 1.1 mg/dL (0.7-1.2) 11/21/21 11:35 GFR Calculation Not Reportable 11/21/21 11:35 Glucose 99 mg/dL (65-115) 11/21/21 11:35 Calculated Osmolality 291 mOsm/kg (285-295) 11/21/21 11:35 Calcium 9.6 mg/dL (8.5-10.5) 11/21/21 11:35 Total Bilirubin 0.6 mg/dL (0.15-1.2) 11/21/21 11:35 AST 13 U/L (0-40) 11/21/21 11:35 ALT 13 U/L (0-41) 11/21/21 11:35 Alkaline Phosphatase 60 IU/L (40-130) 11/21/21 11:35 Troponin T Baseline 16 ng/L (0-15) H 11/21/21 11:35 Troponin T 120 Minute 16.07 ng/L (0-15) H 11/21/21 13:50 Delta Troponin T 0.07 ABS# (0-10) 11/21/21 13:50 Total Protein 6.5 g/dL (6.6-8.7) L 11/21/21 11:35 Albumin 4.6 g/dL (3.5-5.2) 11/21/21 11:35 Globulin 1.9 g/dL (1.3-4.6) 11/21/21 11:35 EKG 1: My Interpretation: No sinus rhythm with a poor R wave progression. Possible left atrial enlargement. Incomplete right bundle branch block pattern. EKG computer-generated impression: Chest X-Ray 11/21/21 11:16 IMPRESSION: No acute chest abnormality. A&P Assessment and plan (1) Nonsustained ventricular tachycardia: The etiology of the nonspecifically tachycardia is not clear. Possibility of underlying coronary artery disease/coronary ischemia causing this is a consideration. The patient has not had any significant chest pain. No previous history for coronary disease. His LV function is not known. For further evaluation of the arrhythmia, an echocardiogram would be helpful. No evidence of valvular injury so far. Serial cardiac enzymes and EKGs would be appropriate to rule out this. Status: Acute (2) Near syncope: Most likely related to the ventricular arrhythmia. Coronary ischemia also is a consideration. Patient needs to be closely monitored on telemetry. He continues to have PVCs on the monitor. Status: Acute (3) Abnormal EKG: Patient has possible biatrial enlargement and incomplete right bundle branch block. Possibility of structural heart disease/congenital defects are considerations. After reviewing the echocardiogram, further recommendations will be made Status: Acute (4) Dyslipidemia: Patient is on simvastatin. This may be continued. Status: Acute Plan Other problems are status post recent oral surgery Minimally elevated white cell count Based on the clinical progress on the results of the above, further recommendations will be made. Thank you for the opportunity to eval this patient make these recommendations Coding Level of Care Code Acute Field Traffic Investigator for Chg Archie Medical Decision Making High Complexity Diagnoses Near syncope R55 Nonsustained ventricular tachycardia I47.2 Dyslipidemia E78.5 Abnormal EKG R94.31
[2021-11-21] MEDS: enoxaparin 40 mg/0.4 mL Syringe SUBCUT (17:11)
--- NOTE | 2021-11-21 17:16 | ECG_ITS ---
[facility] Test Date: 2021-11-21 Pat Name: Sixto Starks Department: Room: Gender: Male Screen Operator: : 1950 Requested By: Esvin Erickson Order Number: [id number] [place] MD: Gelacio Espinal M.D. Measurements Intervals [place] Rate: 89 P: 84 IA: 171 QRS: 86 QRSD: 108 T: 72 QT: 347 QTc: 422 Interpretive Statements SINUS RHYTHM POSSIBLE RIGHT ATRIAL ENLARGEMENT [0.25mV P-WAVE] POSSIBLE LEFT ATRIAL ENLARGEMENT [-0.1mV P-WAVE IN V1/V2] INCOMPLETE RIGHT BUNDLE BRANCH BLOCK [90+ ms QRS DURATION, TERMINAL R IN V1/V2, 40+ ms S IN I/aVL/V4/V5/V6] Compared to ECG 10/28/2021 12:46:45 No significant changes Electronically Signed On 11-21-2021 20:39:59 CDT by Gelacio Espinal M.D. [email or web address]
[2021-11-21 17:50] LABS: Troponin 5 6HR 13.61 ng/L (0-15)
[2021-11-21] MEDS: metoprolol tartrate 50 mg Tablet PO (18:38)
[2021-11-21 18:41] LABS: Troponin 5 6HR Delta -2.39 ng/L (0-12)
[2021-11-21] MEDS: sodium chloride 0.9% 1,000 ML 75 ML IV (22:18)
[2021-11-22] VITALS (13 sets, daily range): BP systolic 113–144; BP diastolic 67–80; PULSE 60–80; RESP 10–22; TEMP 36.7–37.1; O2SAT 94–98
[2021-11-22 04:48] LABS: Basophils % 0.3 %; Eosinophils # 0.1 10^3/uL (0.0-0.8); Eosinophils % 1.2 %; Hematocrit 45.5 % (42.0-52.0); Hemoglobin 14.7 g/dL (11.7-16.6); Lymphocytes % 12.9 %; Mean Corpuscular HGB Conc 32.3 g/dL (30.0-36.0); Mean Corpuscular Hemoglobin 29.6 pg (28.0-34.0); Mean Corpuscular Volume 91.5 fl (80-94); Monocytes # 0.7 10^3/uL (0.2-0.9); Monocytes % 8.9 %; Neutrophils # 5.67 10^3/uL (1.8-7.7); Neutrophils % 76.3 %; Nucleated Red Blood Cells % 0 %; Platelet Count 144 10^3/cmm (130-400); Red Blood Count 4.97 10^6/uL (4.1-5.3); Red Cell Distribution Width 13.1 % (12.1-15.1); White Blood Count 7.4 10^3/uL (4.0-10.0)
[2021-11-22 04:59] LABS: INR 0.94 (0.8-1.2)
[2021-11-22 05:00] LABS: Partial Thromboplastin Time 29.3 SECONDS (23.9-36.7)
[2021-11-22 05:25] LABS: Alanine Aminotransferase 12 U/L (0-41); Albumin Level 4.1 g/dL (3.5-5.2); Alkaline Phosphatase 53 IU/L (40-130); Anion Gap 11.2 (5-19); Aspartate Amino Transferase 13 U/L (0-40); Blood Urea Nitrogen 21 mg/dL (8-23); Calcium 9.4 mg/dL (8.5-10.5); Carbon Dioxide 29 mmol/L (22-29); Chloride 100 mmol/L (98-107); Chol HDL Ratio 4.02 mg/dL (1.0-5.00); Cholesterol 193 mg/dL (0-200); Globulin 2.4 g/dL (1.3-4.6); Glucose 103 mg/dL (65-115); HDL Cholesterol 48 mg/dL (60-100); LDL Cholesterol Calculated 126 mg/dL (50-129); LDL HDL Ratio 2.63 RATIO (0.00-3.22); Magnesium 2.2 mg/dL (1.7-2.3); NT Pro B Type Natriuretic Pept 218 pg/mL (0-125); Osmolality Calculated 285 mOsm/kg (285-295); Potassium 4.2 mmol/L (3.5-5.1); Sodium 136 mmol/L (136-145); Thyroid Stimulating Hormone 1.16 uIU/mL (0.27-4.20); Total Bilirubin 0.5 mg/dL (0.15-1.2); Total Protein 6.5 g/dL (6.6-8.7); Triglycerides 95 mg/dL (0-150)
[2021-11-22] MEDS: sodium chloride 0.9% 1,000 ML 50 ML IV (07:03)
[2021-11-22] MEDS: diphenhydrAMINE 50 mg Capsule PO (09:27)
--- NOTE | 2021-11-22 09:29 | W.PM.OPSUD ---
Surgery/Procedure H&P Update DATE OF PROCEDURE: November 22, 2021 DATE H&P PERFORMED: 11/21/21 H&P UPDATE INFORMATION: I have reviewed H&P completed within last 30 days, I have examined patient prior to procedure and No changes to prior documentation PREOP DIAGNOSIS: V Tach/ LV dysfunction PRIMARY INDICATION FOR PROCEDURE: Nonsustained ventricular tachycardia/near syncope/echocardiograph evidence of wall motion of normality, suspecting CAD PLANNED PROCEDURE: Operation Date: 11/22/21 09:50 Proposed Procedures p Cardiac Catheterization(Left) - Oz Bolton MD PATIENT REASSESSED PRIOR TO SEDATION, WITH NO CHANGE NOTED: Yes PHYSICAL EXAM: alert, oriented x 3, clear to auscultation bilaterally and regular rate & rhythm AIRWAY EVAL/ANESTHESIA PLAN: normal airway, see other exam findings, ASA II, Monitored Anesthesia, Local Anesthesia, Risks, benefits & alternatives of sedation and/or procedure discussed and Patient agrees to continue as planned
--- NOTE | 2021-11-22 09:47 | PC.NURSE ---
to labor service representative via wheelchair
--- NOTE | 2021-11-22 10:30 | XACV_ITS ---
Exam Room: [facility] Ht: 185 cm Wt: 79 kg BSA: 2.02 m2 Gender: Male : 1950 Exam Priority: Routine Procedure(s): Procedure Description: Diagnostic procedure Procedure Description: Left Heart Catheterization Procedure Description: Coronary Angiography Hoang ANDRADE; Diagnostic Cath Status: Elective Diagnostic Findings * Left main is a medium caliber short vessel with no significant obstructive lesions. * Left anterior descending artery is a medium caliber tortuous vessel with mild diffuse disease in the proximal segment, involving the ostium, ranging anywhere from 20 to 30%. No significant stenotic lesions were noted. * The left circumflex artery is a medium caliber vessel with also was found to have mild diffuse intimal irregularities in the proximal segment. No significant extremity lesions were noted. * The right coronary artery is a medium caliber dominant vessel which also was found to have mild diffuse intimal irregularities in the midsegment. No significant external deviations were noted. Conclusions 1. 70-year-old white male with a multiple risk factors for coronary artery disease, presenting with palpitations/near syncope. He was found to have nonsustained ventricular tachycardia and frequent PVCs on the monitor. Echocardiogram revealed some wall motion abnormalities. In view of his symptoms and objective findings, in order to further evaluate his coronary status, a cardiac catheterization was recommended. Patient underwent left heart catheterization with left and right coronary angiogram today. The findings are as follows.. 2. 1. Mild diffuse coronary artery disease. 2. LVEDP of 3 mmHg.. Diagnostic RX Recommendation: medical therapy and/or counseling LV EDP: 3 mmHg Left Ventriculography Findings: * LV gram was not performed because of the limitations on the dye usage. Pressures Phase:Rest AO : 106 / 46 ( 74 ) @ 11:19:00 AM 113 / 54 ( 80 ) @ 11:26:00 AM 110 / 37 ( 73 ) @ 11:26:00 AM LV : 110 / -21 / 2 @ 11:24:00 AM 106 / -19 / 3 @ 11:25:00 AM 113 / -19 / 3 @ 11:26:00 AM 107 / -19 / 3 @ 11:26:00 AM Valves Phase:DefaultPhase AV : 0.0 @ 10:32:46 AM AV Mean Gradient: 0.0 @ 10:32:46 AM Clinical Evaluation EBL: 5mL-10mL Procedural Details Admit Source: In Patient. Procedure Consent Obtained. Pre-Procedure Time Out. Identified patient by full name and date of as verbalized by the patient/guarantor. Does the consent match the physician's order: Yes. Accurate & Complete Informed Consent: Yes. Inpatient/Outpatient History & Physical on Chart: Yes. If H&P is completed, is and addenduem needed: N/A; If yes, is the addendum complete: N/A. Visualize and Verify Site with Patient/Guarantor: N/A. Relevant Radiology Images available: N/A. Pre-op teaching completed and patient verbalized understanding. The risks, benefits, and alternatives of sedation and/or procedure were discussed by physician. The patient agrees to continue. Procedure started. [facility] Clinical Fraility Score: 2: Well. Car Pilot Indications: Cardiac Arrhythmia. Chest Pain Symptom Assessment: Atypical Angina. Correct patient, site and procedure confirmed by cath team. Current diagnosis: Chest Pain. PERRLA. Strong, equal hand geological drafter bilaterally. Lungs clear x 5 lobes. IV Site on Arrival: 20 gauge in the right anticubital. IV Fluids: 0.9% NaCl at KVO. 100 mL infused prior to label press operator. Pre Procedural Pulses: right radial was 3+. Pre Procedural Pulses: bilateral dorsalis pedis was 2+. Oxygen started at 2liters/min via nasal canula. right groin was prepped with chloroprep then draped in the usual sterile fashion. right radial was prepped with chloroprep then draped in the usual sterile fashion. Physician notified. Baseline sample Acquired. HR: 69 BPM. Physician arrived. Physician scrubbed in. Immediate Pre-Procedure Time Out. Correct Patient: Yes; Correct Procedure: Yes; Correct Site: Yes; Correct Patient Position: Yes; Correct Supplies: Yes; Dried Flammable Prep: Yes; Blood Products Available: N/A;. Lidocaine 1% infiltrated to the right radial. Arterial access obtained. Hand injection performed through the needle access. Radial access aborted and femoral access attempted. TR band placed with 10 ml air to R radial access site. Arterial access obtained with micropuncture set. A 5 azeri JL4 catheter in over wire. Multiple views taken of left coronary artery. Catheter removed over the standard wire. A 5 azeri JR4 catheter in over wire. Multiple views taken of right coronary artery. EDP Sample taken: LV 110/-22,2; HR: 75 BPM; SpO2: 98%. EDP Sample taken: LV 113/-20,3; HR: 72 BPM; SpO2: 98%. Pullback taken: LV 107/-20,3; AO 113/54(80); Mean: 0mmHg, Peak to Peak: 0mmHg, SEP: 8sec/min; HR: 72 BPM; SpO2: 99%. Physician scrubbed out. Physician review of cine films. A Suture was successful obtaining hemostatsis at the Right Femoral artery insertion site. Post Procedure: Pulses reassessed and unchanged. PERRLA. Strong, equal hand geological drafter bilaterally. No VTE prophylaxis required. Medication's Wasted: Heparin = 2500 u. Medication's Wasted: Verapamil = 5 mg. Medication's Wasted: Nitro = 50 mg. Total IV fluids: 250 mL. Post-op diagnosis: Non Obstructive CAD. Complications: none. Estimated blood loss: 5mL-10mL. Responsiveness - Normal response to verbal stimuli; alert and oriented, PERRLA. Airway - Unaffected, no intervention required; spontaneous ventilation. Circulation: W/N/L, pulses unchanged. Nausea/Vomiting: No. Procedure completed. Patient transferred by bed to ICU. Vital chart was stopped. Access Site Site: Right Femoral artery Sheath Size: 5 Fr Hemostasis Method: Suture Hemostasis Success: Successful Procedure Medications Start: 9:50 AM Stop: 9:50 AM Medication: Fentanyl Amount: 50 mcg Route: I.V. Start: 9:54 AM Stop: 9:54 AM Medication: Versed Amount: 1 mg Route: I.V. Start: 9:57 AM Stop: 9:57 AM Medication: Versed Amount: 1 mg Route: I.V. Start: 10:02 AM Stop: 10:02 AM Medication: Fentanyl Amount: 50 mcg Route: I.V. Start: 10:13 AM Stop: 10:13 AM Medication: Versed Amount: 1 mg Route: I.V. Start: 10:18 AM Stop: 10:18 AM Medication: Heparin Amount: 1500 units Route: I.V. Start: 10:26 AM Stop: 10:26 AM Medication: 0.9% Saline Amount: 250 ml Route: I.V. bolus Start: 10:27 AM Stop: 10:27 AM Medication: Versed Amount: 1 mg Route: I.V. I, the attending physician, have reviewed and verified all procedure medications. Yes, all medications given per verbal order History/Risk Factors Hypertension: No Dyslipidemia: Yes Peripheral Arterial Disease (PAD): No Myocardial Infarction (FL): No Obesity: No Renal Disease: No Tobacco Use: Former Prior Interventions PCI: No CABG: No Valve Surgery: No Report Signatures Finalized by Dr Oz Bolton MD [facility] on 11/22/2021 04:42 PM
--- NOTE | 2021-11-22 10:34 | PM.PN ---
Subjective Subjective: Patient continues to feel okay. Has not had any recurrence of ventricular tachycardia. However he has frequent PVCs on the monitor. Denies any chest pain or shortness of breath. Complains of being fatigued. No other specific complaints. Medications: Medication Review Details: Current Medications Acetaminophen (Acetaminophen 325 Mg Tablet) 650 mg PO Q6H PRN PRN Reason: Mild/Mod Pain Or Temp >/= 101 Bisacodyl (Bisacodyl 5 Mg Tablet) 10 mg PO DAILY PRN; Protocol PRN Reason: Constipation (see protocol) Enoxaparin Sodium (Enoxaparin 40 Mg/0.4 Ml Syringe) 40 mg SUBCUT Q24H [facility] Last Admin: 11/21/21 17:11 Dose: 40 mg Documented by: Sodium Chloride (Sodium Chloride 0.9%) 1,000 mls @ 75 mls/hr IV .[id number] [facility] Last Admin: 11/21/21 22:18 Dose: 75 mls/hr Documented by: Sodium Chloride (Sodium Chloride 0.9%) 1,000 mls @ 50 mls/hr IV .Q20H ONE Stop: 11/23/21 00:59 Last Admin: 11/22/21 07:03 Dose: 50 mls/hr Documented by: Ondansetron HCl (Ondansetron 2 Mg/Ml Sdv 2 Ml) 4 mg IVP Q8H PRN PRN Reason: vomiting, or N/V if npo Vitals/I&O/Wt Last Vital Signs Temp 98.4 F 11/22/21 08:00 Pulse 76 11/22/21 08:00 Resp 18 11/22/21 08:00 BP 144/80 11/22/21 08:00 Pulse Ox 97 11/22/21 08:00 11/21/21 11/22/21 11/22/21 22:59 06:59 14:59 Intake Total 100 / 100 0 / 100 Output Total 900 / 900 400 / 400 Balance 100 / 100 -900 / -800 -400 / -400 Weight last 48 hrs Weight 175 lb Physical Exam Narrative: GENERAL: The patient is alert and oriented times three. Not in any acute distress. HEENT: No significant pallor, icterus or lymphadenopathy.Oral cavity: There are no mucous membrane lesions. NECK: Trachea appears to be central. No masses noted. No JVD or thyromegaly appreciated. RESPIRATORY: Chest is symmetrical. No intercostals muscle retraction or any accessory muscle activation. There is no chest wall tenderness. Breath sounds are heard bilaterally. No rales or rhonchi heard. No evidence of any consolidation. BREASTS: Deferred. HEART: The heart sounds are normal. No S3 or S4. No significant murmurs. No pericardial rub ABDOMEN: No vessel pulsations or distention. No tenderness. No organomegaly appreciated. Bowel sounds are normally heard. : Deferred. RECTAL: Deferred. LYMPHATIC: No lymphadenopathy noted in the neck. EXTREMITIES: No edema or cyanosis. No clubbing. MUSCULOSKELETAL: No acute joint deformities or swelling SKIN: There are no significant rashes or ecchymosis NEUROPSYCHIATRIC: The patient is alert and oriented x3. Appears to be in a good mood. No tremors or rigidity noted. Data : 11/22/21 04:15 11/22/21 04:15 Other Labs: Echocardiogram from yesterday ?normal LV size with a borderline low ejection fraction of 50 to ?55%. ?Wall motion abnormality as mentioned above ?Mild biatrial enlargement. ?Trace tricuspid valve regurgitation. ?There is no pericardial effusion. ?There are no intracardiac masses. ?No similar previous studies are available for comparison Micro: Laboratory Last Values WBC 7.4 10^3/uL (4.0-10.0) 11/22/21 04:15 Corrected WBC Cancelled 11/21/21 11:35 RBC 4.97 10^6/uL (4.1-5.3) 11/22/21 04:15 Hgb 14.7 g/dL (11.7-16.6) 11/22/21 04:15 Hct 45.5 % (42.0-52.0) 11/22/21 04:15 MCV 91.5 fl (80-94) 11/22/21 04:15 MCH 29.6 pg (28.0-34.0) 11/22/21 04:15 MCHC 32.3 g/dL (30.0-36.0) 11/22/21 04:15 RDW 13.1 % (12.1-15.1) 11/22/21 04:15 Plt Count 144 10^3/cmm (130-400) 11/22/21 04:15 MPV 12.0 fL (7.4-10.4) H 11/22/21 04:15 Gran % Cancelled 11/21/21 11:35 Neut % (Auto) 76.3 % 11/22/21 04:15 Lymph % (Auto) 12.9 % 11/22/21 04:15 Ford % (Auto) 8.9 % 11/22/21 04:15 Eos % (Auto) 1.2 % 11/22/21 04:15 Baso % (Auto) 0.3 % 11/22/21 04:15 Neut # (Auto) 5.67 10^3/uL (1.8-7.7) 11/22/21 04:15 Lymph # (Auto) 1.0 10^3/uL (0.8-4.8) 11/22/21 04:15 Ford # (Auto) 0.7 10^3/uL (0.2-0.9) 11/22/21 04:15 Eos # (Auto) 0.1 10^3/uL (0.0-0.8) 11/22/21 04:15 Baso # (Auto) 0.0 10^3/uL (0.0-0.1) 11/22/21 04:15 Absolute Gran (auto) Cancelled 11/21/21 11:35 Nucleated RBC % (auto) 0 % 11/22/21 04:15 Nucleated RBCs # 0.0 /100WBC 11/22/21 04:15 PT 12.90 SECONDS (12.1-14.9) 11/22/21 04:15 INR 0.94 (0.8-1.2) 11/22/21 04:15 APTT 29.3 SECONDS (23.9-36.7) 11/22/21 04:15 Sodium 136 mmol/L (136-145) 11/22/21 04:15 Potassium 4.2 mmol/L (3.5-5.1) 11/22/21 04:15 Chloride 100 mmol/L (98-107) 11/22/21 04:15 Carbon Dioxide 29 mmol/L (22-29) 11/22/21 04:15 Anion Gap 11.2 (5-19) 11/22/21 04:15 BUN 21 mg/dL (8-23) 11/22/21 04:15 Creatinine 0.9 mg/dL (0.7-1.2) 11/22/21 04:15 GFR Calculation Not Reportable 11/22/21 04:15 Glucose 103 mg/dL (65-115) 11/22/21 04:15 Calculated Osmolality 285 mOsm/kg (285-295) 11/22/21 04:15 Calcium 9.4 mg/dL (8.5-10.5) 11/22/21 04:15 Magnesium 2.2 mg/dL (1.7-2.3) 11/22/21 04:15 Total Bilirubin 0.5 mg/dL (0.15-1.2) 11/22/21 04:15 AST 13 U/L (0-40) 11/22/21 04:15 ALT 12 U/L (0-41) 11/22/21 04:15 Alkaline Phosphatase 53 IU/L (40-130) 11/22/21 04:15 Troponin T Baseline 16 ng/L (0-15) H 11/21/21 11:35 Troponin T 120 Minute 16.07 ng/L (0-15) H 11/21/21 13:50 Delta Troponin T 0.07 ABS# (0-10) 11/21/21 13:50 Troponin T Hi Sens 6Hr 13.61 ng/L (0-15) 11/21/21 16:53 Troponin T Hi Sens 6Hr Delta -2.39 ng/L (0-12) L 11/21/21 16:53 NT-Pro-B Natriuret Pep 218 pg/mL (0-125) H 11/22/21 04:15 Total Protein 6.5 g/dL (6.6-8.7) L 11/22/21 04:15 Albumin 4.1 g/dL (3.5-5.2) 11/22/21 04:15 Globulin 2.4 g/dL (1.3-4.6) 11/22/21 04:15 Triglycerides 95 mg/dL (0-150) 11/22/21 04:15 Cholesterol 193 mg/dL (0-200) 11/22/21 04:15 LDL Cholesterol, Calc 126 mg/dL (50-129) 11/22/21 04:15 HDL Cholesterol 48 mg/dL (60-100) L 11/22/21 04:15 LDL/HDL Ratio 2.63 RATIO (0.00-3.22) 11/22/21 04:15 Cholesterol/HDL Ratio 4.02 mg/dL (1.0-5.00) 11/22/21 04:15 TSH 1.16 uIU/mL (0.27-4.20) 11/22/21 04:15 A&P Assessment and plan (1) Nonsustained ventricular tachycardia: Seems to be responding to the beta-roxana and magnesium. The echocardiogram reveals wall motion abnormalities suggesting coronary ischemia. For further evaluation of his coronary status, a cardiac catheterization would be appropriate. The risk of bleeding, hematoma, vascular injury, myocardial infarction, CVA, renal failure and other concomitant complications were explained in detail. Patient understood this well and consented to proceed. We may go ahead and schedule the procedure sometime this morning. Status: Acute (2) Near syncope: Most likely related to the ventricular arrhythmia. Coronary ischemia also is a consideration. Patient needs to be closely monitored on telemetry. He continues to have PVCs on the monitor. Status: Acute (3) Abnormal EKG: The echocardiogram revealed mild biatrial enlargement. Normal LV ejection fraction. Status: Acute (4) Dyslipidemia: Patient is on simvastatin. This may be continued. Status: Acute Plan Other problems are status post recent oral surgery Minimally elevated white cell count, most likely an acute phase reactant The white cell count is within normal limits today AFTER reviewing the cardiac catheterization data, further recommendations will be made. Attestations Medical Necessity Statement*: Patient requires continued hospital stay for close monitoring and further management Coding Level of Care Code Acute Pathology Laboratory Technologist for Chg Fwd History Expanded Problem Focused Exam Detailed Medical Decision Making Moderate Complexity Diagnoses Nonsustained ventricular tachycardia I47.2 Near syncope R55 Abnormal EKG R94.31 Dyslipidemia E78.5
--- NOTE | 2021-11-22 11:55 | PM.DCS ---
Discharge Providers Date of Admission: 11/21/21 15:36 Date of Discharge: November 22, 2021 Attending Provider at Admission: Gustavo Scott MD Attending Provider at Discharge: Gustavo Scott MD Primary Care Provider: SYDNEY De La Garza Diagnoses at Discharge Discharge Diagnosis (1) Nonsustained ventricular tachycardia: Status: Acute (2) Near syncope: Status: Acute (3) Abnormal EKG: Status: Acute (4) Dyslipidemia: Status: Acute Reason for Visit Reason for Visit: chest pain Hospital Course Hospital Course HPI : Sixto Starks is a 70 year old male with past medical history of malignant melanoma, came to the ER from his ENT clinic Where patient likely had presyncopal episode, when I talked to the patient he denied any evident loss of consciousness, though he said that he felt lightheaded, patient was also complaining of mild substernal chest tightness, denied any nausea vomiting, diaphoresis, Headache, further work-up in the ER revealed nonsustained ventricular tachycardia. Pertinent imaging studies: X-ray chest: No acute findings EKG: Sinus rhythm with occasional PVCs, incomplete right bundle branch block Pertinent labs: WBC 11.8, H&H:13/42 , PLT : 153 , sodium 139 potassium 4.5 , BUN serum creatinine: 21/1.1 , Troponin: 16 , 16 , 13? Hospital course Was admitted for further evaluation and management of nonsustained ventricular tachycardia: 2D echo: Normal LV size with a borderline low ejection fraction of 50 to ?55%.Mild hypokinesis of the anteroapical region. Mild biatrial enlargement. Trace tricuspid valve regurgitation. There is no pericardial effusion. There are no intracardiac masses. Patient underwent cardiac cath, which showed nonocclusive coronary artery disease, patient was also monitored on telemetry during the hospital stay, he has been continued on metoprolol .T 50 mg p.o. BID and oral magnesium supplements.Patient will need event monitor and possible further EP study.to quantify the burden. Overall patient responded well to above medical management and is being discharged in stable condition to home. He Will continue to follow primary care physician as well as cardiology as outpatient. Physical Exam Const: COMMON NORMALS: patient oriented x3 HENMT: COMMON NORMALS: normocephalic, atraumatic and external ears normal HEAD & SCALP: normocephalic and atraumatic EXTERNAL EAR: Yes external ears normal Chest: CHEST: Yes Symmetrical chest wall rise Resp: COMMON NORMALS: clear to auscultation bilaterally EFFORT & INSPECTION: Yes symmetric chest movement AUSCULTATION: clear to auscultation bilaterally Cardio: COMMON NORMALS: regular rate, regular rhythm, S1 normal heart sound present, S2 normal heart sound present, No gallops present (Cardio), No murmurs present (Cardio), No rub (Cardio) and Peripheral pulses 2+ throughout RATE: regular rate RHYTHM: regular rhythm HEART SOUNDS: S1 normal heart sound present and S2 normal heart sound present PERIPHERAL PULSES: Peripheral pulses 2+ throughout GI: COMMON NORMALS: Normal to inspection, nondistended, normoactive bowel sounds present, Soft to palpation, non-tender, No hepatosplenomegaly present and no masses AUSCULTATION: Yes normoactive bowel sounds PALPATION: Yes Soft to palpation and Yes No hepatosplenomegaly present RECTAL EXAM: Yes deferred Extremity: COMMON NORMALS: no clubbing, cyanosis or edema and no pedal edema Neuro: COMMON NORMALS: patient oriented x3 Discharge Data Studies Completed and Pending Completed Studies During Hospitalization Category Date Time Status XR chest 1V portable [id number] Stat Exams 11/21/21 11:16 Completed CV. echo complete* [id number] Routine Ultrasound 11/21/21 15:36 Completed Pending at discharge Category Date Time Status SERVICE DELIVERY ANALYST request for service Routine Exams 11/22/21 10:30 Ordered Complete Blood Count w/Auto AM LABS Lab 11/23/21 04:00 Ordered Complete Blood Count w/Auto AM LABS Lab 11/24/21 04:00 Ordered Comprehensive Metabolic Panel AM LABS Lab 11/23/21 04:00 Ordered Comprehensive Metabolic Panel AM LABS Lab 11/24/21 04:00 Ordered Magnesium AM LABS Lab 11/23/21 04:00 Ordered Magnesium AM LABS Lab 11/24/21 04:00 Ordered Partial Thromboplastin Time AM LABS Lab 11/23/21 04:00 Ordered Partial Thromboplastin Time AM LABS Lab 11/24/21 04:00 Ordered Prothrombin Time INR AM LABS Lab 11/23/21 04:00 Ordered Prothrombin Time INR AM LABS Lab 11/24/21 04:00 Ordered Radiology Impressions Chest X-Ray 11/21/21 11:16 IMPRESSION: No acute chest abnormality. Laboratory Results WBC 7.4 10^3/uL (4.0-10.0) 11/22/21 04:15 Corrected WBC Cancelled 11/21/21 11:35 RBC 4.97 10^6/uL (4.1-5.3) 11/22/21 04:15 Hgb 14.7 g/dL (11.7-16.6) 11/22/21 04:15 Hct 45.5 % (42.0-52.0) 11/22/21 04:15 MCV 91.5 fl (80-94) 11/22/21 04:15 MCH 29.6 pg (28.0-34.0) 11/22/21 04:15 MCHC 32.3 g/dL (30.0-36.0) 11/22/21 04:15 RDW 13.1 % (12.1-15.1) 11/22/21 04:15 Plt Count 144 10^3/cmm (130-400) 11/22/21 04:15 MPV 12.0 fL (7.4-10.4) H 11/22/21 04:15 Gran % Cancelled 11/21/21 11:35 Neut % (Auto) 76.3 % 11/22/21 04:15 Lymph % (Auto) 12.9 % 11/22/21 04:15 [place] % (Auto) 8.9 % 11/22/21 04:15 Eos % (Auto) 1.2 % 11/22/21 04:15 Baso % (Auto) 0.3 % 11/22/21 04:15 Neut # (Auto) 5.67 10^3/uL (1.8-7.7) 11/22/21 04:15 Lymph # (Auto) 1.0 10^3/uL (0.8-4.8) 11/22/21 04:15 [place] # (Auto) 0.7 10^3/uL (0.2-0.9) 11/22/21 04:15 Eos # (Auto) 0.1 10^3/uL (0.0-0.8) 11/22/21 04:15 Baso # (Auto) 0.0 10^3/uL (0.0-0.1) 11/22/21 04:15 Absolute Gran (auto) Cancelled 11/21/21 11:35 Nucleated RBC % (auto) 0 % 11/22/21 04:15 Nucleated RBCs # 0.0 /100WBC 11/22/21 04:15 PT 12.90 SECONDS (12.1-14.9) 11/22/21 04:15 INR 0.94 (0.8-1.2) 11/22/21 04:15 APTT 29.3 SECONDS (23.9-36.7) 11/22/21 04:15 Sodium 136 mmol/L (136-145) 11/22/21 04:15 Potassium 4.2 mmol/L (3.5-5.1) 11/22/21 04:15 Chloride 100 mmol/L (98-107) 11/22/21 04:15 Carbon Dioxide 29 mmol/L (22-29) 11/22/21 04:15 Anion Gap 11.2 (5-19) 11/22/21 04:15 BUN 21 mg/dL (8-23) 11/22/21 04:15 Creatinine 0.9 mg/dL (0.7-1.2) 11/22/21 04:15 GFR Calculation Not Reportable 11/22/21 04:15 Glucose 103 mg/dL (65-115) 11/22/21 04:15 Calculated Osmolality 285 mOsm/kg (285-295) 11/22/21 04:15 Calcium 9.4 mg/dL (8.5-10.5) 11/22/21 04:15 Magnesium 2.2 mg/dL (1.7-2.3) 11/22/21 04:15 Total Bilirubin 0.5 mg/dL (0.15-1.2) 11/22/21 04:15 AST 13 U/L (0-40) 11/22/21 04:15 ALT 12 U/L (0-41) 11/22/21 04:15 Alkaline Phosphatase 53 IU/L (40-130) 11/22/21 04:15 Troponin T Baseline 16 ng/L (0-15) H 11/21/21 11:35 Troponin T 120 Minute 16.07 ng/L (0-15) H 11/21/21 13:50 Delta Troponin T 0.07 ABS# (0-10) 11/21/21 13:50 Troponin T Hi Sens 6Hr 13.61 ng/L (0-15) 11/21/21 16:53 Troponin T Hi Sens 6Hr Delta -2.39 ng/L (0-12) L 11/21/21 16:53 NT-Pro-B Natriuret Pep 218 pg/mL (0-125) H 11/22/21 04:15 Total Protein 6.5 g/dL (6.6-8.7) L 11/22/21 04:15 Albumin 4.1 g/dL (3.5-5.2) 11/22/21 04:15 Globulin 2.4 g/dL (1.3-4.6) 11/22/21 04:15 Triglycerides 95 mg/dL (0-150) 11/22/21 04:15 Cholesterol 193 mg/dL (0-200) 11/22/21 04:15 LDL Cholesterol, Calc 126 mg/dL (50-129) 11/22/21 04:15 HDL Cholesterol 48 mg/dL (60-100) L 11/22/21 04:15 LDL/HDL Ratio 2.63 RATIO (0.00-3.22) 11/22/21 04:15 Cholesterol/HDL Ratio 4.02 mg/dL (1.0-5.00) 11/22/21 04:15 TSH 1.16 uIU/mL (0.27-4.20) 11/22/21 04:15 Vitals Last Vital Signs Temp 98.4 F 11/22/21 08:00 Pulse 76 11/22/21 08:00 Resp 18 11/22/21 08:00 BP 144/80 11/22/21 08:00 Pulse Ox 97 11/22/21 08:00 Discharge Plan Discharge Patient Disposition: Home Condition: Stable Prescriptions: New metoprolol tartrate 50 mg Tablet 50 mg PO BID Qty: 60 5RF Magtab 84 mg Tablet Extended Release 84 mg PO BID 30 Days Qty: 60 0RF Continued simvastatin 20 mg tablet 20 mg PO DAILY 0RF (DME) Custom Accomadative orthotic with deep heel cup See Rx Instructions .ROUTE .MEDSUPPLY Qty: 1 0RF Rx Instructions: As directed fluocinolone and shower cap 0.01 % oil 1 ea topical DAILY Qty: 118.28 4RF Rx Instructions: To scalp as needed. Leave on overnight OR >4 hours before rinsing celecoxib 100 mg capsule 100 mg PO BID 0RF lidocaine HCl [Aspercreme (lidocaine HCl)] 4 % cream 1 applic topical BID 0RF testosterone [AndroGel] 20.25 mg/1.25 gram (1.62 %) gel in metered-dose pump 1 pump topical DAILY 0RF Rx Instructions: apply 1 pump amount over max area of ONE upper arm and shoulder ketoconazole 2 % shampoo 1 applic topical .2 x weekly Qty: 120 3RF Rx Instructions: Lather into scalp 2 times weekly. Allow to sit on scalp for 5 minutes before rinsing. clindamycin HCl 300 mg capsule 300 mg PO QID 0RF Discharge Orders: Discharge Order (Routine); Ordered 11/22/21 Ordered By: Gustavo Scott Other Ambulatory Orders: MCT/Event Monitor 30 Days (Routine) Timeframe: 1 Month Facility: [facility] - Location: Radiology Ordered By: Oz Bolton Referrals: Oz Bolton MD [Physician] - 1 month (Please call [facility] for an follow-up with Dr. Bolton in 1 month. Please call ) Laura Sy FNP [Nurse Practitioner] - (Please call [facility] for an follow-up appointment in 1 week. Please call . Please follow-up for your event monitor next week. ) Renate Corrales FNP [Primary Care Provider] - 1 week (Please call for an follow-up appointment with Renate GRIMES in 1 week. ) Discharge Diet: Regular Discharge Activity: Resume usual activity Patient Instructions: Metoprolol (By mouth), Magnesium (By mouth), Post Angiogram Home Care Instructions Activity Restrictions/Additional Instructions: Avoid any weight lifting or climbing stairs for the next 3 days. Appointment the [facility] to be seen by the nurse practitioner in [address] Bolton in 1 month Event monitor for 30 days. Discharge Attestations Time Spent in Discharge Care*: less than 30 min Specific Discharge Activities: educating patient, educating and/or supporting family/caregiver, discussing with pcp/other providers, discussing with porter sample case/social workers/dc planners, documenting/other paperwork and evaluating patient/reviewing data Quality Metrics Clinical Quality Measures [ No reported AMI, CVA or VTE this stay] Coding Level of Care Code Acute Chg FW DC note Exam Detailed Diagnoses Nonsustained ventricular tachycardia I47.2 Near syncope R55 Abnormal EKG R94.31 Dyslipidemia E78.5
[2021-11-22] MEDS: sodium chloride 0.9% 1,000 ML 100 ML IV (12:21)
[2021-11-22] MEDS: magnesium lactate 84 mg Tablet PO (15:11)
[2021-11-22] MEDS: metoprolol tartrate 50 mg Tablet PO (15:12)
--- NOTE | 2021-11-22 18:49 | PC.NURSE ---
ambulation pt ambulated down the hallways. denies any pain or sob. right groin site is clean, dry and intact. no hematoma or swelling noted. pt has small bruises. pedal pulses are palpabe +3. post angiogram home care discussed to pt.
== END 2021-11-22 18:52 | disposition home or self-care (01) | DRG 287 ==
LOC: ER 15:27 → MEDSURG 18:27
PROVIDERS: Internal Medicine Cardiovascular Disease; Admitting Provider Internal Medicine; Emergency Provider Family Medicine; PCP Nurse Practitioner; Visit Provider Internal Medicine
DX: I47.2 Ventricular tachycardia (principal); I25.10 Atherosclerotic heart disease of native coronary artery without angina pectoris; I49.3 Ventricular premature depolarization; I45.10 Unspecified right bundle-branch block; R55 Syncope and collapse; E78.00 Pure hypercholesterolemia, unspecified; E78.5 Hyperlipidemia, unspecified; Z85.820 Personal history of malignant melanoma of skin; Z87.891 Personal history of nicotine dependence; R94.31 Abnormal electrocardiogram [ECG] [EKG]
CPT/HCPCS: 36415; 71045; 80053; 80061; 83735; 83880; 84443; 84484; 85025; 85610; 85730; 93005; 93306; 93452; 93458; 94760; 96360; 96372; 99152; 99153; 99285; C1769; C1887; C1894; G0378; J1644; J1650; J2250; J3010; J3490; J7030; Q0163; Q9967

== ENCOUNTER → 2021-11-28 09:40 | Outpatient (BNVA) | payer OTHER, SELFPAY | PROVIDERS: PCP Nurse Practitioner; Visit Provider Nurse Practitioner Family | DX: I47.2 Ventricular tachycardia (principal); R55 Syncope and collapse | CPT/HCPCS: 93229; 99213 ==

== ENCOUNTER → 2021-11-28 09:40 | Outpatient (BNVA) | payer OTHER, SELFPAY | PROVIDERS: PCP Nurse Practitioner | DX: Z53.9 Procedure and treatment not carried out, unspecified reason (principal) ==

== ENCOUNTER → 2021-12-23 10:58 | Outpatient (BNVA) | payer OTHER, SELFPAY | PROVIDERS: PCP Nurse Practitioner; Visit Provider Internal Medicine Cardiovascular Disease | DX: R06.02 Shortness of breath (principal); R25.2 Cramp and spasm | CPT/HCPCS: 36415; 80048; 83735; 99214 ==

== ENCOUNTER → 2022-04-07 09:31 | Outpatient (BNVA) | payer OTHER, SELFPAY | PROVIDERS: PCP Nurse Practitioner; Visit Provider Nurse Practitioner Family | DX: I49.8 Other specified cardiac arrhythmias (principal) | CPT/HCPCS: 99213 ==

== ENCOUNTER 2022-09-17 20:00 | Outpatient (CLI) | payer OTHER, SELFPAY | END 2022-09-17 20:01 | disposition home or self-care (01) | LOC: SLEEP 09-18 05:50 | PROVIDERS: PCP Nurse Practitioner; Visit Provider Nurse Practitioner | DX: G47.30 Sleep apnea, unspecified (principal) | CPT/HCPCS: 95811 ==

== ENCOUNTER 2022-09-23 09:03 | Emergency (ER) | payer OTHER, SELFPAY ==
[2022-09-23] VITALS (7 sets, daily range): BP systolic 122–149; BP diastolic 61–80; PULSE 68–87; RESP 14–18; TEMP 36.9; O2SAT 94–98; BMI 23.1
--- NOTE | 2022-09-23 09:27 | PC.NURSE ---
BLADDER SCANNER SHOWS LESS THAN 10 ML.
--- NOTE | 2022-09-23 09:31 | CT_ITS ---
WS: [id number] CT ABDOMEN PELVIS TECHNIQUE: Noncontrast CT of the abdomen and pelvis with coronal and sagittal reformatted images. CLINICAL INFORMATION: L abdomen/suprapubic pain COMPARISON: None. DLP: 460.[address] scans at [facility] use at least one of these dose optimization techniques: automated e xposure control; mA and/or kV adjustment per patient size (includes targeted exams where dose is matc hed to clinical indication); or iterative reconstruction. FINDINGS: Lumbar scoliosis convex LEFT. Emphysematous changes in the lung bases. Subsegmental atelectasis in th e lower lobes. Calcified granuloma LEFT lower lobe. Mild LEFT hydronephrosis and perinephric stranding and edema about the LEFT kidney. Dilated LEFT mary l pelvis with obstructing calculus at the UPJ. Obstructing calculus measures 7 mm in maximum dimensio n. Inflammatory stranding about the LEFT proximal ureter. Ureter distal to the UPJ obstruction is dec ompressed. Distal ureter is patent. Chronic appearing obstructing calculus in the RIGHT UPJ measuring 5.8 mm although no evidence of hydr onephrosis. RIGHT distal ureter is decompressed. Bilateral nonobstructing renal parenchymal and calyc eal tip calculi. Normal noncontrast liver and spleen. Tiny esophageal hiatal hernia. Noncontrast pancreas appears norm al. Aortic calcification.Sigmoid diverticulosis. No evidence of acute diverticulitis. Moderate consti pation with distended cecum. Noncontrast gallbladder is normal. No inguinal lymphadenopathy. No free fluid in the pelvis. Disc space narrowing lumbar spine worse at L5-S1 disc osteophyte protrusion. Slight anterolisthesis L4 on L5. CT/CT kidney stone [id number] IMPRESSION: 1. 7 mm obstructing LEFT UVJ calculus with mild hydronephrosis. Surrounding in flammatory stranding and edema. 2. Chronic appearing obstructing 5.8 mm RIGHT UVJ calculus without evidence of hydronephrosis or inflammatory stranding about the RIGHT kidney. 3. Additional nonobstructing calyceal and intraparenchymal calculi bilaterally . 4. No other acute findings.
--- NOTE | 2022-09-23 09:32 | ED_ITS ---
Documented by User: CATHERINE Hendrix 09/23/22 14:30 HPI - Male Genitourinary General: Chief complaint: Urogenital-Male Stated complaint: Abd Pain, abnormal labs Time Seen by Provider: 09/23/22 09:08 Source: patient and family Mode of arrival: ambulatory Limitations: no limitations History of Present Illness: Patient is a very nice 71-year-old male who presents to ED today along with his for evaluation of left lower quadrant/suprapubic abdominal pains. He states yesterday he began noticing pain around his left flank and states over time it seemed to wrap around into the left side of his abdomen. Patient states he does have a history of kidney and ureter stones but this somehow felt different. He states he was seen at the [facility] and sent to the ED for further ev aluation. He states he had a hard time given a urine sample at the [facility]. He has not noticed any dysuria or hematuria at home. He has not been running fevers. He is reporting nausea and vomiting that began with the onset of pain yesterday. No changes in bowel habits. UA results from [facility] were requested and obtained which shows a large amount of blood but otherwise normal MD Complaint: other (L flank/abdomen/suprapubic pain) Onset (ago): hour(s) (yesterday evening) Duration: constant Location: left flank and abdomen Severity: severe Severity scale (1-10): 10 Quality: sharp and stabbing Relieving factors: none Exacerbating factors: none Associated symptoms: Reports nausea and vomiting; Deny hematuria Review of Systems Const: Denies: fever(s), chills, body aches, fatigue or malaise Card: Denies: chest pain Resp: Denies: dyspnea GI: Reports: abdominal pain, nausea and vomiting; Denies: hematemesis, change in bowel habits, hematochezia or melena : Reports: flank pain, difficulty urinating, urinary hesitancy and urinary dribbling; Denies: urinary frequency, hematuria or testicular pain Musc: Reports: back pain (started with L flank pain yesterday); Denies: neck pain, extremity pain, extremity swelling or joint pain Skin/Breast: Denies: rash Neuro: Denies: headache(s), numbness in extremities, weakness in extremities, sensory changes or dizziness [facility] ED PFSH: Medical History Abnormal EKG Dyslipidemia History of malignant melanoma Hypercholesteremia Near syncope Nonsustained ventricular tachycardia Rotator cuff arthropathy of right shoulder Syncope Ventricular tachyarrhythmia Family History Mother Dementia Grandmother Stroke Denies family history of Diabetes CAD (coronary artery disease) Clotting disorder Chronic kidney disease (CKD) Suicide Anesthesia complication Bleeding disorder Lung disease Cancer Social History Smoking and tobacco status: former smoker Alcohol intake: never Substance/Drug Use: never Current occupational status: retired Physical Exam Const: COMMON NORMALS: average body habitus, patient oriented x3, no limitations, healthy appearing, alert and well nourished GENERAL APPEARANCE: cooperative and in distress (appears uncomfortable secondary to pain) ORIENTATION/CONSCIOUSNESS: Yes awake, Yes oriented to person, Yes oriented to place and Yes oriented to time Resp: COMMON NORMALS: normal respiratory effort and clear to auscultation bilaterally AUSCULTATION: clear to auscultation bilaterally Cardio: COMMON NORMALS: regular rate and regular rhythm RATE: regular rate RHYTHM: regular rhythm GI: COMMON NORMALS: Normal to inspection, nondistended, normoactive bowel sounds present, Soft to palpation, No hepatosplenomegaly present and no masses INSPECTION: Yes normal to inspection AUSCULTATION: Yes normoactive bowel sounds PALPATION: Yes Soft to palpation, Yes Tenderness to palpation present (GI) (throughout L side of abdomen), Yes Guarding due to palpation present (GI), No Rigid due to palpation and Yes No hepatosplenomegaly present : BLADDER/KIDNEY EXAM: Yes CVA tenderness on the left Back/Pelvis: GENERAL BACK: Yes CVA tenderness Extremity: COMMON NORMALS: normal to inspection GENERAL: Yes normal exam except as noted Neuro: COMMON NORMALS: patient oriented x3 SENSORIUM/ORIENTATION: Yes alert, Yes oriented to person, Yes oriented to place and Yes oriented to time Skin: COMMON NORMALS: no rashes or lesions noted GENERAL SKIN EXAM: no rashes or lesions noted Course Consultations: Consultation #1: Dr. Galeas-[facility]-states they only have urology coverage one day a week and they do not perform any procedures Consultation #2: Contacted [facility] who stated they do not take call for other facilities Consultation #3: Contacted [facility] transfer line who stated they may have a bed later this evening but no guarantees Contacted [facility] and spoke to SYDNEY Spence/hospitalist who will accept patient. Contact line stated urology will be consulted upon patient's arrival and requested I do not consult with them now. Vital Signs: Vital signs: Vital Signs Temperature 98.5 F 09/23/22 09:08 Pulse Rate 79 09/23/22 16:52 Respiratory Rate 18 09/23/22 16:52 Blood Pressure 149/64 09/23/22 16:52 Pulse Oximetry 98 09/23/22 16:52 Oxygen Delivery Me thod Room Air 09/23/22 16:52 [facility] - Male Medical Decision Making Patient is a nice 71-year-old male here with complaints of left flank and abdominal pain beginning yesterday. Patient has a large 7 mm obstructing left UPJ calculus with hydronephrosis and surrounding inflammatory stranding and edema. Chronic obstructing 5.8 mm right UPJ stone. Patient was given morphine and toradol with relief of his discomfort but shortly later states that pain was returning. Patient worries about his ability to go home and control his pain. Unfortunately we do not have a urologist on-call as he is on vacation and is not planning to return for another 6 to 7 days. Patient will require transfer for ureter stent/shock wave lithotripsy. Patient's blood work shows a white count of 13.4. His creatinine is slightly elevated at 1.4. Lab Data 09/23/22 09:14 09/23/22 09:14 Radiology Impressions Abdomen/Pelvis CT 09/23/22 09:31 IMPRESSION: 1. 7 mm obstructing LEFT UVJ calculus with mild hydronephrosis. Surrounding inflammatory stranding and edema. 2. Chronic appearing obstructing 5.8 mm RIGHT UVJ calculus without evidence of hydronephrosis or inflammatory stranding about the RIGHT kidney. 3. Additional nonobstructing calyceal and intraparenchymal calculi bilaterally. 4. No other acute findings. ADDENDUM: 09/23/22 1102 IMPRESSION: 1. 7 mm obstructing LEFT UPJ calculus with mild hydronephrosis. Surrounding inflammatory stranding and edema. 2. Chronic appearing obstructing 5.8 mm RIGHT UPJ calculus without evidence of hydronephrosis or inflammatory stranding about the RIGHT kidney. 3. Additional nonobstructing calyceal and intraparenchymal calculi bilaterally. 4. No other acute findings. Notified CATHERINE Hendrix at 09/23/2022 10:59 AM. Laboratory Results WBC 13.4 10^3/uL (4.0-10.0) H 09/23/22 09:14 RBC 5.92 10^6/uL (4.1-5.3) H 09/23/22 09:14 Hgb 17.7 g/dL (11.7-16.6) H 09/23/22 09:14 Hct 51.8 % (42.0-52.0) 09/23/22 09:14 MCV 87.5 fl (80-94) 09/23/22 09:14 MCH 29.9 pg (28.0-34.0) 09/23/22 09:14 MCHC 34.2 g/dL (30.0-36.0) 09/23/22 09:14 RDW 13.1 % (12.1-15.1) 09/23/22 09:14 Plt Count 237 10^3/cmm (130-400) 09/23/22 09:14 MPV 11.3 fL (7.4-10.4) H 09/23/22 09:14 Neut % (Auto) 78.9 % 09/23/22 09:14 Lymph % (Auto) 12.8 % 09/23/22 09:14 Weld % (Auto) 7.0 % 09/23/22 09:14 Eos % (Auto) 0.3 % 09/23/22 09:14 Baso % (Auto) 0.3 % 09/23/22 09:14 Neut # (Auto) 10.54 10^3/uL (1.8-7.7) H 09/23/22 09:14 Lymph # (Auto) 1.7 10^3/uL (0.8-4.8) 09/23/22 09:14 Weld # (Auto) 0.9 10^3/uL (0.2-0.9) 09/23/22 09:14 Eos # (Auto) 0.0 10^3/uL (0.0-0.8) 09/23/22 09:14 Baso # (Auto) 0.0 10^3/uL (0.0-0.1) 09/23/22 09:14 Nucleated RBC % (auto) 0 % 09/23/22 09:14 Nucleated RBCs # 0.0 /100WBC 09/23/22 09:14 Sodium 135 mmol/L (136-145) L 09/23/22 09:14 Potassium 4.4 mmol/L (3.5-5.1) 09/23/22 09:14 Chloride 100 mmol/L (98-107) 09/23/22 09:14 Carbon Dioxide 24 mmol/L (22-29) 09/23/22 09:14 Anion Gap 15.4 (5-19) 09/23/22 09:14 BUN 19 mg/dL (8-23) 09/23/22 09:14 Creatinine 1.4 mg/dL (0.7-1.2) H 09/23/22 09:14 GFR Calculation Not Reportable 09/23/22 09:14 Glucose 113 mg/dL (65-115) 09/23/22 09:14 Calculated Osmolality 283 mOsm/kg (285-295) L 09/23/22 09:14 Calcium 9.2 mg/dL (8.5-10.5) 09/23/22 09:14 Total Bilirubin 0.7 mg/dL (0.15-1.2) 09/23/22 09:14 AST 29 U/L (0-40) 09/23/22 09:14 ALT 32 U/L (0-41) 09/23/22 09:14 Alkaline Phosphatase 68 U/L (40-130) 09/23/22 09:14 Total Protein 6.7 g/dL (6.6-8.7) 09/23/22 09:14 Albumin 4.2 g/dL (3.5-5.2) 09/23/22 09:14 Globulin 2.5 g/dL (1.3-4.6) 09/23/22 09:14 Lipase 20 U/L (13-60) 09/23/22 09:14 Urine Color Yellow (Yellow) 09/23/22 10:32 Urine Appearance Clear (CLEAR) 09/23/22 10:32 Urine pH 6 (5-7) 09/23/22 10:32 Ur Specific [place] 1.020 (1.005-1.030) 09/23/22 10:32 Urine Protein Neg (Negative) 09/23/22 10:32 Urine Glucose (UA) Norm (Normal) 09/23/22 10:32 Urine Ketones 2+ (Negative) H 09/23/22 10:32 Urine Blood 3+ (Negative) H 09/23/22 10:32 Urine Nitrate Negative (Negative) 09/23/22 10:32 Urine Bilirubin Neg (Negative) 09/23/22 10:32 Urine Urobilinogen Norm mg/dL (Negative) 09/23/22 10:32 Ur Leukocyte Esterase Negative (Negative) 09/23/22 10:32 Urine RBC 0-4 /hpf (0-2) H 09/23/22 10:32 Urine WBC 0-4 /hpf (0-5) H 09/23/22 10:32 Ur Squamous Epith Cells Rare /hpf (0-5) 09/23/22 10:32 Amorphous Sediment Not Reportable 09/23/22 10:32 Urine Bacteria Trace /hpf (NONE) 09/23/22 10:32 Discharge Plan Discharge Patient Disposition: Xfer Short-Term Hosp Clinical Impression: Obstruction of left ureteropelvic junction (UPJ) due to stone Condition: Stable Referrals: Renate Corrales FNP [Primary Care Provider] - Coding Level of Care Code ED Single Resource Boss for Chg Fwd Documented by User: Surya Gordon MD 10/01/22 02:14 HPI - Male Genitourinary General: Chief complaint: Urogenital-Male Stated complaint: Abd Pain, abnormal labs Time Seen by Provider: 09/23/22 09:08 [facility] ED PFSH: Medical History Abnormal EKG Dyslipidemia History of malignant melanoma Hypercholesteremia Near syncope Nonsustained ventricular tachycardia Rotator cuff arthropathy of right shoulder Syncope Ventricular tachyarrhythmia Family History Mother Dementia Grandmother Stroke Denies family history of Diabetes CAD (coronary artery disease) Clotting disorder Chronic kidney disease (CKD) Suicide Anesthesia complication Bleeding disorder Lung disease Cancer Social History Smoking and tobacco status: former smoker Alcohol intake: never Substance/Drug Use: never Current occupational status: retired Course Vital Signs: Vital signs: Vital Signs Temperature 98.5 F 09/23/22 09:08 Pulse Rate 79 09/23/22 16:52 Respiratory Rate 18 09/23/22 16:52 Blood Pressure 149/64 09/23/22 16:52 Pulse Oximetry 98 09/23/22 16:52 Oxygen Delivery Me thod Room Air 09/23/22 16:52 [facility] - Male Medical Decision Making Patient is a nice 71-year-old male here with complaints of left flank and abdominal pain beginning yesterday. Patient has a large 7 mm obstructing left UPJ calculus with hydronephrosis and surrounding inflammatory stranding and edema. Chronic obstructing 5.8 mm right UPJ stone. Patient was given morphine and toradol with relief of his discomfort but shortly later states that pain was returning. Patient worries about his ability to go home and control his pain. Unfortunately we do not have a urologist on-call as he is on vacation and is not planning to return for another 6 to 7 days. Patient will require transfer for ureter stent/shock wave lithotripsy. Patient's blood work shows a white count of 13.4. His creatinine is slightly elevated at 1.4. I discussed this case with CATHERINE Hendrix. I have reviewed documentation, labs, imaging. Surya Gordon MD Emergency Medicine Lab Data 09/23/22 09:14 09/23/22 09:14 Radiology Impressions Abdomen/Pelvis CT 09/23/22 09:31 IMPRESSION: 1. 7 mm obstructing LEFT UVJ calculus with mild hydronephrosis. Surrounding inflammatory stranding and edema. 2. Chronic appearing obstructing 5.8 mm RIGHT UVJ calculus without evidence of hydronephrosis or inflammatory stranding about the RIGHT kidney. 3. Additional nonobstructing calyceal and intraparenchymal calculi bilaterally. 4. No other acute findings. ADDENDUM: 09/23/22 1102 IMPRESSION: 1. 7 mm obstructing LEFT UPJ calculus with mild hydronephrosis. Surrounding inflammatory stranding and edema. 2. Chronic appearing obstructing 5.8 mm RIGHT UPJ calculus without evidence of hydronephrosis or inflammatory stranding about the RIGHT kidney. 3. Additional nonobstructing calyceal and intraparenchymal calculi bilaterally. 4. No other acute findings. Notified CATHERINE Hendrix at 09/23/2022 10:59 AM. Laboratory Results WBC 13.4 10^3/uL (4.0-10.0) H 09/23/22 09:14 RBC 5.92 10^6/uL (4.1-5.3) H 09/23/22 09:14 Hgb 17.7 g/dL (11.7-16.6) H 09/23/22 09:14 Hct 51.8 % (42.0-52.0) 09/23/22 09:14 MCV 87.5 fl (80-94) 09/23/22 09:14 MCH 29.9 pg (28.0-34.0) 09/23/22 09:14 MCHC 34.2 g/dL (30.0-36.0) 09/23/22 09:14 RDW 13.1 % (12.1-15.1) 09/23/22 09:14 Plt Count 237 10^3/cmm (130-400) 09/23/22 09:14 MPV 11.3 fL (7.4-10.4) H 09/23/22 09:14 Neut % (Auto) 78.9 % 09/23/22 09:14 Lymph % (Auto) 12.8 % 09/23/22 09:14 Weld % (Auto) 7.0 % 09/23/22 09:14 Eos % (Auto) 0.3 % 09/23/22 09:14 Baso % (Auto) 0.3 % 09/23/22 09:14 Neut # (Auto) 10.54 10^3/uL (1.8-7.7) H 09/23/22 09:14 Lymph # (Auto) 1.7 10^3/uL (0.8-4.8) 09/23/22 09:14 Weld # (Auto) 0.9 10^3/uL (0.2-0.9) 09/23/22 09:14 Eos # (Auto) 0.0 10^3/uL (0.0-0.8) 09/23/22 09:14 Baso # (Auto) 0.0 10^3/uL (0.0-0.1) 09/23/22 09:14 Nucleated RBC % (auto) 0 % 09/23/22 09:14 Nucleated RBCs # 0.0 /100WBC 09/23/22 09:14 Sodium 135 mmol/L (136-145) L 09/23/22 09:14 Potassium 4.4 mmol/L (3.5-5.1) 09/23/22 09:14 Chloride 100 mmol/L (98-107) 09/23/22 09:14 Carbon Dioxide 24 mmol/L (22-29) 09/23/22 09:14 Anion Gap 15.4 (5-19) 09/23/22 09:14 BUN 19 mg/dL (8-23) 09/23/22 09:14 Creatinine 1.4 mg/dL (0.7-1.2) H 09/23/22 09:14 GFR Calculation Not Reportable 09/23/22 09:14 Glucose 113 mg/dL (65-115) 09/23/22 09:14 Calculated Osmolality 283 mOsm/kg (285-295) L 09/23/22 09:14 Calcium 9.2 mg/dL (8.5-10.5) 09/23/22 09:14 Total Bilirubin 0.7 mg/dL (0.15-1.2) 09/23/22 09:14 AST 29 U/L (0-40) 09/23/22 09:14 ALT 32 U/L (0-41) 09/23/22 09:14 Alkaline Phosphatase 68 U/L (40-130) 09/23/22 09:14 Total Protein 6.7 g/dL (6.6-8.7) 09/23/22 09:14 Albumin 4.2 g/dL (3.5-5.2) 09/23/22 09:14 Globulin 2.5 g/dL (1.3-4.6) 09/23/22 09:14 Lipase 20 U/L (13-60) 09/23/22 09:14 Urine Color Yellow (Yellow) 09/23/22 10:32 Urine Appearance Clear (CLEAR) 09/23/22 10:32 Urine pH 6 (5-7) 09/23/22 10:32 Ur Specific [place] 1.020 (1.005-1.030) 09/23/22 10:32 Urine Protein Neg (Negative) 09/23/22 10:32 Urine Glucose (UA) Norm (Normal) 09/23/22 10:32 Urine Ketones 2+ (Negative) H 09/23/22 10:32 Urine Blood 3+ (Negative) H 09/23/22 10:32 Urine Nitrate Negative (Negative) 09/23/22 10:32 Urine Bilirubin Neg (Negative) 09/23/22 10:32 Urine Urobilinogen Norm mg/dL (Negative) 09/23/22 10:32 Ur Leukocyte Esterase Negative (Negative) 09/23/22 10:32 Urine RBC 0-4 /hpf (0-2) H 09/23/22 10:32 Urine WBC 0-4 /hpf (0-5) H 09/23/22 10:32 Ur Squamous Epith Cells Rare /hpf (0-5) 09/23/22 10:32 Amorphous Sediment Not Reportable 09/23/22 10:32 Urine Bacteria Trace /hpf (NONE) 09/23/22 10:32 Discharge Plan Discharge Patient Disposition: Xfer Short-Term Hosp Clinical Impression: Obstruction of left ureteropelvic junction (UPJ) due to stone Condition: Stable Referrals: Renate Corrales FNP [Primary Care Provider] - Coding Level of Care Code ED Single Resource Boss for Javier Almanza
[2022-09-23] MEDS: sodium chloride 0.9% 1,000 ML 999 ML IV (09:36)
[2022-09-23 09:38] LABS: Basophils % 0.3 %; Eosinophils % 0.3 %; Hematocrit 51.8 % (42.0-52.0); Hemoglobin 17.7 g/dL (11.7-16.6); Lymphocytes # 1.7 10^3/uL (0.8-4.8); Lymphocytes % 12.8 %; Mean Corpuscular HGB Conc 34.2 g/dL (30.0-36.0); Mean Corpuscular Hemoglobin 29.9 pg (28.0-34.0); Mean Corpuscular Volume 87.5 fl (80-94); Mean Platelet Volume 11.3 fL (7.4-10.4); Monocytes # 0.9 10^3/uL (0.2-0.9); Neutrophils # 10.54 10^3/uL (1.8-7.7); Neutrophils % 78.9 %; Nucleated Red Blood Cells % 0 %; Platelet Count 237 10^3/cmm (130-400); Red Blood Count 5.92 10^6/uL (4.1-5.3); Red Cell Distribution Width 13.1 % (12.1-15.1); White Blood Count 13.4 10^3/uL (4.0-10.0)
[2022-09-23] MEDS: ketorolac 60 mg/2 mL INJ 15 MG IVP (09:38)
[2022-09-23] MEDS: ondansetron 2 mg/ML SDV 2 mL 4 MG IVP (09:38)
[2022-09-23] MEDS: morphine 4 mg/mL SDV 1 mL IVP ×2 (09:38→18:16)
[2022-09-23 09:47] LABS: Alanine Aminotransferase 32 U/L (0-41); Albumin Level 4.2 g/dL (3.5-5.2); Alkaline Phosphatase 68 U/L (40-130); Anion Gap 15.4 (5-19); Aspartate Amino Transferase 29 U/L (0-40); Blood Urea Nitrogen 19 mg/dL (8-23); Calcium 9.2 mg/dL (8.5-10.5); Carbon Dioxide 24 mmol/L (22-29); Chloride 100 mmol/L (98-107); Globulin 2.5 g/dL (1.3-4.6); Glucose 113 mg/dL (65-115); Lipase 20 U/L (13-60); Osmolality Calculated 283 mOsm/kg (285-295); Potassium 4.4 mmol/L (3.5-5.1); Sodium 135 mmol/L (136-145); Total Bilirubin 0.7 mg/dL (0.15-1.2); Total Protein 6.7 g/dL (6.6-8.7)
--- NOTE | 2022-09-23 10:38 | PC.PHAR ---
pt states he takes care of his own medications-pt states he use to use a bunch of creams and ketoconazole shampoo pt states he no longer uses any of them-pt states he is only taking the medications entered-
[2022-09-23 11:05] LABS: Add Urine Microscopic? YES; Bilirubin Urine Neg (Negative); Blood Urine 3+ (Negative); Glucose Urine UA Norm (Normal); Ketones Urine 2+ (Negative); Leukocyte Esterase Urine Negative (Negative); Nitrate Urine Negative (Negative); Protein Urine Neg (Negative); Urine Appearance Clear (CLEAR); Urine Color Yellow (Yellow); Urobilinogen Urine Norm (Negative); pH Urine 6 (5-7)
[2022-09-23 11:06] LABS: Bacteria Urine TRACE /hpf; RBC Urine 0-4 /hpf (0-2); Squamous Epithelial Cell Urine RARE /hpf (0-5); WBC Urine 0-4 /hpf (0-5)
== END 2022-09-23 18:59 | disposition short-term general hospital (02) ==
PROVIDERS: Emergency Provider Physician Assistant; PCP Nurse Practitioner
DX: N20.1 Calculus of ureter (principal); E78.5 Hyperlipidemia, unspecified; Z87.891 Personal history of nicotine dependence
CPT/HCPCS: 51798; 74176; 80053; 81001; 83690; 85025; 96361; 96374; 96375; 99285; J1885; J2270; J2405; J7030

== ENCOUNTER → 2023-05-06 11:50 | Outpatient (BNVA) | payer MEDICARE, SELFPAY | PROVIDERS: PCP Family Medicine; Visit Provider Family Medicine | DX: L29.8 Other pruritus; Z79.899 Other long term (current) drug therapy | CPT/HCPCS: 17000; 80053; 83550; 84439; 85025; 86803; 99214 ==

== ENCOUNTER → 2024-03-01 12:30 | Outpatient (BNVA) | payer MEDICARE, SELFPAY | PROVIDERS: PCP Family Medicine; Visit Provider Family Medicine | DX: E78.5 Hyperlipidemia, unspecified (principal); R41.3 Other amnesia; L29.9 Pruritus, unspecified; I65.29 Occlusion and stenosis of unspecified carotid artery | CPT/HCPCS: 80053; 80061; 84443; 85025; 86592 ==

== ENCOUNTER → 2024-03-17 09:52 | Outpatient (BNVA) | payer MEDICARE, SELFPAY | PROVIDERS: PCP Family Medicine; Visit Provider Family Medicine | DX: R53.83 Other fatigue (principal); F32.A Depression, unspecified; Z01.818 Encounter for other preprocedural examination; I44.30 Unspecified atrioventricular block; E55.9 Vitamin D deficiency, unspecified | CPT/HCPCS: 82040; 82306; 82607; 84270; 84403; 93005 ==

== ENCOUNTER 2024-03-20 11:31 | Inpatient (IN) | payer MEDICARE, OTHER, SELFPAY ==
[2024-03-20] VITALS (75 sets, daily range): BP systolic 150–207; BP diastolic 60–100; PULSE 36–101; RESP 9–23; TEMP 36.7; O2SAT 92–99; BMI 23.1
--- NOTE | 2024-03-20 11:51 | ECG_ITS ---
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 Measurements Intervals [place] Rate: 43 P: 0 TX: 0 QRS: 88 QRSD: 98 T: 65 QT: 468 QTc: 397 Interpretive Statements third-degree heart block with a junctional escape rhythm. Sinus rate of 80 bpm POSSIBLE LEFT VENTRICULAR HYPERTROPHY [VOLTAGE CRITERIA PLUS LAE OR QRS WIDENING] ST DEPRESSION, CONSIDER SUBENDOCARDIAL INJURY [0.1+ mV ST DEPRESSION] Compared to ECG 11/21/2021 14:14:30 ST (T wave) deviation now present Sinus rhythm no longer present Incomplete right bundle-branch block no longer present Electronically Signed On 03-20-2024 19:33:43 FRAME PUL[employer] MORTISING MACHINE OPERATOR by Oz Bolton M.D. [email or web address]
--- NOTE | 2024-03-20 11:53 | ED_ITS ---
HPI - Weakness 2 General: Chief complaint: Weakness Stated complaint: irregular EKG at doctor office Time Seen by Provider: 03/20/24 11:49 History of Present Illness: 73-year-old male presents emergency room directed here by his primary care physician he was seen last week for multiple complaints most notable of which was with exertion he felt lightheaded dizzy weak had a little bit of chest pressure that been going on for the last couple of months. He has been advised that they go to the emergency room but declined. He Contacted his primary care doctor today again advised to the emergency room this time he did follow through. Prior to arrival he had been working outside states he had very poor exercise tolerance with shortness of breath and some chest pressure that was relieved with rest. Associated symptoms: Reports chest pain (Pressure); Denies chills, dysuria or fever(s) Review of Systems 2 Const: Denies: fever(s) or chills Card: Reports: chest pain (Pressure), palpitations, irregular heart rhythm and dyspnea on exertion; Denies: edema Resp: Reports: dyspnea GI: Denies: abdominal pain : Denies: dysuria, urinary frequency or urinary urgency Musc: Denies: neck pain or back pain Skin/Breast: Denies: rash PFSH ED 2 PFSH: Medical History History of Holter monitoring 10/2021 NSR with PVCs and occasional NSVT History of sleep study 08/2022 History of squamous cell carcinoma of skin History of basal cell carcinoma of skin EDY (obstructive sleep apnea) not compliant with CPAP therapy Testosterone deficiency B12 deficiency Chronic pruritus Depression Kidney stones Diverticulosis Carotid artery occlusion <50% stenosis bilaterally, moderate atheromatous plaque bilaterally Ventricular arrhythmia PVC and NSVT Abnormal EKG incomplete rbbb Dyslipidemia History of malignant melanoma Surgical History History of bilateral cataract extraction History of cardiac catheterization 10/2021 - mild diffuse coronary artery disease. LVEDP of 3mmHg History of Mohs micrographic surgery for skin cancer History of submandibular gland removal right, benign History of rotator cuff surgery right Family History Mother , 88 Dementia Grandmother Stroke Father , 92, worked in the garden the day he No problems noted. Other Malignant melanoma Denies family history of Diabetes CAD (coronary artery disease) Clotting disorder Chronic kidney disease (CKD) Suicide Anesthesia complication Bleeding disorder Lung disease Cancer Social History Smoking and tobacco/nicotine status: former use of tobacco/nicotine Quit status (tobacco/nicotine): has quit using Year quit tobacco: 1999 Former quit date comment: 20 pack year history Alcohol intake: current Alcohol intake frequency: holidays/special occasions only Substance/Drug Use: never Household members: spouse Marital status: Number of children: 0 service: Yes status: Discharged branch: [employer] Current occupational status: retired 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 Special vesta needs: No Agree to transfusion: Yes Physical Exam 2 Const: GENERAL APPEARANCE: cooperative ORIENTATION/CONSCIOUSNESS: Yes awake, Yes oriented to person, Yes oriented to place and Yes oriented to time HENMT: COMMON NORMALS: normocephalic, atraumatic and hearing grossly normal bilaterally HEAD & SCALP: normocephalic and atraumatic Resp: COMMON NORMALS: normal respiratory effort, No retractions, No use of accessory muscles and clear to auscultation bilaterally AUSCULTATION: clear to auscultation bilaterally Cardio: COMMON NORMALS: regular rhythm and No murmurs present (Cardio) R ATE: bradycardic RHYTHM: regular rhythm GI: COMMON NORMALS: Soft to palpation and No hepatosplenomegaly present A USCULTATION: Yes normoactive bowel sounds PALPATION: Yes Soft to palpation, No Tenderness to palpation present (GI), No Guarding due to palpation present (GI) and Yes No hepatosplenomegaly present Extremity: COMMON NORMALS: normal to inspection, capillary refill normal, no clubbing, cyanosis or edema, no calf tenderness and no pedal edema Neuro: SENSORIUM/ORIENTATION: Yes oriented to person, Yes oriented to place and Yes oriented to time Skin: COMMON NORMALS: no rashes or lesions noted GENERAL SKIN EXAM: no rashes or lesions noted Course 2 Vital Signs: Vital signs: Vital Signs Temperature 98.1 F 03/20/24 11:45 Pulse Rate 52 L 03/20/24 13:44 Respiratory Rate 18 03/20/24 11:45 Blood Pressure 176/89 03/20/24 13:44 Pulse Oximetry 96 11/18/24 13:44 Oxygen Delivery Me thod Room Air 03/20/24 13:49 MDM - Weakness Medical Decision Making Despite being bradycardic patient is borderline hypertensive. On EKG and rhythm strip he has third-degree heart block discussed with hospitalist will admit the left a message Dr. Guthrie he had been aware primary care had reached out to him to over read the EKG and he had directed them to have him come to the emergency room to be admitted. He will see the patient later today patient be admitted to the ICU. Medical Records I reviewed the patient's medical records. Lab Data I reviewed the patient's lab results. 03/20/24 12:11 03/20/24 12:11 Radiology Impressions Chest X-Ray 03/20/24 12:11 IMPRESSION: 1. Pulmonary hyperinflation. No acute process. Laboratory Results WBC 6.44 10^3/uL (3.29-11.43) 03/20/24 12:11 RBC 5.50 10^6/uL (3.85-5.65) 03/20/24 12:11 Hgb 15.90 g/dL (11.27-16.99) 03/20/24 12:11 Hct 48.1 % (37-53) 03/20/24 12:11 MCV 87.5 fl (82-101) 03/20/24 12:11 MCH 28.9 pg (27-33) 03/20/24 12:11 MCHC 33.1 g/dL (30-55) 03/20/24 12:11 RDW 14.0 % (12.1-15.1) 03/20/24 12:11 Plt Count 145 10^3/cmm (157-399) L 03/20/24 12:11 MPV 12.6 fL (7.4-10.4) H 03/20/24 12:11 Neut % (Auto) 61.1 % 03/20/24 12:11 Lymph % (Auto) 24.8 % 03/20/24 12:11 [place] % (Auto) 7.9 % 03/20/24 12:11 Eos % (Auto) 5.1 % 03/20/24 12:11 Baso % (Auto) 0.9 % 03/20/24 12:11 Neut # (Auto) 3.93 10^3/uL (1.8-7.7) 03/20/24 12:11 Lymph # (Auto) 1.6 10^3/uL (0.8-4.8) 03/20/24 12:11 [place] # (Auto) 0.5 10^3/uL (0.2-0.9) 03/20/24 12:11 Eos # (Auto) 0.3 10^3/uL (0.0-0.8) 03/20/24 12:11 Baso # (Auto) 0.1 10^3/uL (0.0-0.1) 03/20/24 12:11 Nucleated RBC % (auto) 0 % 03/20/24 12:11 Nucleated RBCs # 0.0 /100WBC 03/20/24 12:11 Sodium 139 mmol/L (136-145) 03/20/24 12:11 Potassium 4.6 mmol/L (3.5-5.1) 03/20/24 12:11 Chloride 104 mmol/L (98-107) 03/20/24 12:11 Carbon Dioxide 28 mmol/L (22-29) 03/20/24 12:11 Anion Gap 11.6 (5-19) 03/20/24 12:11 BUN 19 mg/dL (8-23) 03/20/24 12:11 Creatinine 1.3 mg/dL (0.7-1.2) H 03/20/24 12:11 GFR Calculation Not Reportable 03/20/24 12:11 Glucose 99 mg/dL (65-115) 03/20/24 12:11 Calculated Osmolality 290 mOsm/kg (285-295) 03/20/24 12:11 Calcium 9.8 mg/dL (8.5-10.5) 03/20/24 12:11 Total Bilirubin 0.5 mg/dL (0.15-1.2) 03/20/24 12:11 AST 16 U/L (0-40) 03/20/24 12:11 ALT 14 U/L (0-41) 03/20/24 12:11 Alkaline Phosphatase 56 U/L (40-130) 03/20/24 12:11 Troponin T Baseline 23 ng/L (0-15) H 03/20/24 12:11 NT-Pro-B Natriuret Pep 398 pg/mL (0-450) 03/20/24 12:11 Total Protein 6.4 g/dL (6.6-8.7) L 03/20/24 12:11 Albumin 4.3 g/dL (3.5-5.2) 03/20/24 12:11 Globulin 2.1 g/dL (1.3-4.6) 03/20/24 12:11 TSH 2.12 uIU/mL (0.27-4.20) 03/20/24 12:11 All radiology interpretation(s) finalized by discharge Discharge Plan Discharge Patient Disposition: Admitted As Inpatient Admit Provider: Lisset Mcclendon Clinical Impression: Third degree heart block Condition: Stable Coding Level of Care Code ED It Technician for Chg Fwd Related Data Home Medications Medication Instructions Recorded Confirmed multivitamin (One Daily 1 tab PO DAILY 01/06/23 03/20/24 Multivitamin tablet) Previous Rx's Medication Instructions Recorded Custom Accomadative orthotic with #1 ea 12/14/19 deep heel cup valacyclovir 1 gram tablet 1,000 mg PO Q12H 5 days #10 tabs 03/17/24 (Valtrex) Allergies Allergy/AdvReac Type Severity Reaction Status Date / Time magnesium oxide Allergy Severe ADR-Diarrhe Verified 03/17/24 07:52 a terbinafine Allergy loss of Verified 03/17/24 07:52 taste
--- NOTE | 2024-03-20 12:11 | XR_ITS ---
WS: [id number] Exam: XR chest 1V portable [id number] Date/Time of Exam: 03/20/2024 12:12 PM Reason For Exam: dyspnea Comparison 11/21/2021. The lungs are hyperinflated and clear. Normal cardiomediastinal silhouette and regional bony elements . No pleural effusions. XR/XR chest 1V portable [id number] IMPRESSION: 1. Pulmonary hyperinflation. No acute process.
[2024-03-20 12:27] LABS: Basophils # 0.1 10^3/uL (0.0-0.1); Basophils % 0.9 %; Eosinophils # 0.3 10^3/uL (0.0-0.8); Eosinophils % 5.1 %; Hematocrit 48.1 % (37-53); Lymphocytes # 1.6 10^3/uL (0.8-4.8); Lymphocytes % 24.8 %; Mean Corpuscular HGB Conc 33.1 g/dL (30-55); Mean Corpuscular Hemoglobin 28.9 pg (27-33); Mean Corpuscular Volume 87.5 fl (82-101); Mean Platelet Volume 12.6 fL (7.4-10.4); Monocytes # 0.5 10^3/uL (0.2-0.9); Monocytes % 7.9 %; Neutrophils # 3.93 10^3/uL (1.8-7.7); Neutrophils % 61.1 %; Nucleated Red Blood Cells % 0 %; Platelet Count 145 10^3/cmm (157-399); White Blood Count 6.44 10^3/uL (3.29-11.43)
--- NOTE | 2024-03-20 12:39 | P.HP_ITS ---
Providers/Chief Complaint 2 Admitting Physician: Lisset Mcclendon MD Primary Care Provider: aMllory Salazar MD - [facility] Chief Complaint: irregular EKG at doctor office History of Present Illness Sixto Starks is a 73 year old male presenting with third-degree atrioventricular block. On a recent visit to his primary care provider, he reported symptoms of fatigue, memory problems, substernal chest pressure, and dyspnea on exertion, which prompted an electrocardiogram (EKG) that revealed a high-degree atrioventricular block, with recommendation for him to visit emergency room for further evaluation. He declined the ER visit on Wednesday but today, after being called by the clinic along with encouragement from his , he did come in. An EKG confirmed a third-degree heart block. Yesterday he experienced significant shortness of breath and fatigue while attempting to play out his garden, something he normally can do at will. He also had some vision changes. Despite his symptoms, he continued to engage in physically demanding activities, albeit with increased effort. Today he feels fantastic and is struggling to appreciate that something is wrong. The only medications he is currently taking include valacyclovir for a fever blister which she has taken for 2 days. Not currently experiencing any chest discomfort. He has known history of obstructive sleep apnea, but is intolerant of CPAP therapy. No known history of hypertension, but blood pressures noted to be high in the ER. Given symptomatic arrhythmia/heart block, hospitalist were contacted for admission. Cardiology has been consulted and will see Mr. Starks. He has had symptoms for 4 to 5 months now. Review of Systems 2 General: Reports: Other (ROS as per HPI or as otherwise noted here) Narrative: - Cardiovascular: Reports fatigue, dyspn ea, and substernal chest pressure. - Neurological: Reports memory problems and discordant visual input. - Skin: Reports persistent itching. - Gastrointestinal: Denies pain and repo rts normal bowel movements. - Extremities: Denies significant swelli ng in extremities except for minimal intermittent lower extremity edema. Some calf pain with exertion but none currently. - Hematological: No bleeding. Medications/Allergies Home Medications Medication Instructions Recorded Confirmed Last Taken Type Custom Accomadative orthotic with #1 ea 12/14/19 03/20/24 Unknown Rx deep heel cup multivitamin (One Daily 1 tab PO DAILY 01/06/23 03/20/24 Unknown History Multivitamin tablet) valacyclovir 1 gram tablet 1,000 mg PO Q12H 5 days #10 tabs 03/17/24 03/20/24 Unknown Rx (Valtrex) Allergies Allergy/AdvReac Type Severity Reaction Status Date / Time magnesium oxide Allergy Severe ADR-Diarrhe Verified 03/17/24 07:52 a terbinafine Allergy loss of Verified 03/17/24 07:52 taste PFSH Acute 2 PFSH: Medical History (Updated 03/20/24 @ 13:05 by Lisset Mcclendon MD) History of Holter monitoring 10/2021 NSR with PVCs and occasional NSVT History of sleep study 08/2022 History of squamous cell carcinoma of skin History of basal cell carcinoma of skin EDY (obstructive sleep apnea) not compliant with CPAP therapy Testosterone deficiency B12 deficiency Chronic pruritus Depression Kidney stones Diverticulosis Carotid artery occlusion <50% stenosis bilaterally, moderate atheromatous plaque bilaterally Ventricular arrhythmia PVC and NSVT Abnormal EKG incomplete rbbb Dyslipidemia History of malignant melanoma Surgical History (Updated 03/20/24 @ 13:54 by Lisset Mcclendon MD) History of bilateral cataract extraction History of cardiac catheterization 10/2021 - mild diffuse coronary artery disease. LVEDP of 3mmHg History of Mohs micrographic surgery for skin cancer History of submandibular gland removal right, benign History of rotator cuff surgery right Family History (Updated 03/20/24 @ 12:48 by Lisset Mcclendon MD) Mother , 88 Dementia Grandmother Stroke Father , 92, worked in the garden the day he No problems noted. Other Malignant melanoma Denies family history of Diabetes CAD (coronary artery disease) Clotting disorder Chronic kidney disease (CKD) Suicide Anesthesia complication Bleeding disorder Lung disease Cancer Social History (Updated 03/20/24 @ 12:49 by Lisset Mcclendon MD) Smoking and tobacco/nicotine status: former use of tobacco/nicotine Quit status (tobacco/nicotine): has quit using Year quit tobacco: 1999 Former quit date comment: 20 pack year history Alcohol intake: current Alcohol intake frequency: holidays/special occasions only Substance/Drug Use: never Household members: spouse Marital status: Number of children: 0 service: Yes status: Discharged branch: [employer] Current occupational status: retired 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, [facility] Vitals/I&O/Wt Last Vital Signs Temp 98.1 F 03/20/24 11:45 Pulse 42 L 03/20/24 12:13 Resp 18 03/20/24 11:45 BP 207/90 03/20/24 12:13 Pulse Ox 98 03/20/24 12:13 O2 Del Method Room Air 03/20/24 12:13 Weight last 48 hrs Weight 79.379 kg Physical Exam 2 Narrative: Constitutional: Awake and alert, cooperative HEENT: Normocephalic, atraumatic, pupils are equally reactive, nasopharynx is clear, oropharynx with moist mucous membranes Neck: Supple Respiratory: Clear to auscultation bilaterally without any rales rhonchi or wheezes noted Cardiovascular: Bradycardia with a heart rate of 38-52 during examination, third-degree heart block noted, no murmurs, gallops, or rubs Abdomen: Soft, nontender, nondistended with positive bowel sounds Extremities: Trace pitting edema at shins, spares ankles Skin: Chornic changes Neuro: Speech clear, face symmetric, moves all extremities Psych: Normal affect, oriented x3 Data 03/20/24 12:11 03/20/24 12:11 Other Labs: Radiology Impressions Chest X-Ray 03/20/24 12:11 IMPRESSION: 1. Pulmonary hyperinflation. No acute process. Laboratory Results WBC 6.44 10^3/uL (3.29-11.43) 03/20/24 12:11 RBC 5.50 10^6/uL (3.85-5.65) 03/20/24 12:11 Hgb 15.90 g/dL (11.27-16.99) 03/20/24 12:11 Hct 48.1 % (37-53) 03/20/24 12:11 MCV 87.5 fl (82-101) 03/20/24 12:11 MCH 28.9 pg (27-33) 03/20/24 12:11 MCHC 33.1 g/dL (30-55) 03/20/24 12:11 RDW 14.0 % (12.1-15.1) 03/20/24 12:11 Plt Count 145 10^3/cmm (157-399) L 03/20/24 12:11 MPV 12.6 fL (7.4-10.4) H 03/20/24 12:11 Neut % (Auto) 61.1 % 03/20/24 12:11 Lymph % (Auto) 24.8 % 03/20/24 12:11 [place] % (Auto) 7.9 % 03/20/24 12:11 Eos % (Auto) 5.1 % 03/20/24 12:11 Baso % (Auto) 0.9 % 03/20/24 12:11 Neut # (Auto) 3.93 10^3/uL (1.8-7.7) 03/20/24 12:11 Lymph # (Auto) 1.6 10^3/uL (0.8-4.8) 03/20/24 12:11 [place] # (Auto) 0.5 10^3/uL (0.2-0.9) 03/20/24 12:11 Eos # (Auto) 0.3 10^3/uL (0.0-0.8) 03/20/24 12:11 Baso # (Auto) 0.1 10^3/uL (0.0-0.1) 03/20/24 12:11 Nucleated RBC % (auto) 0 % 03/20/24 12:11 Nucleated RBCs # 0.0 /100WBC 03/20/24 12:11 Sodium 139 mmol/L (136-145) 03/20/24 12:11 Potassium 4.6 mmol/L (3.5-5.1) 03/20/24 12:11 Chloride 104 mmol/L (98-107) 03/20/24 12:11 Carbon Dioxide 28 mmol/L (22-29) 03/20/24 12:11 Anion Gap 11.6 (5-19) 03/20/24 12:11 BUN 19 mg/dL (8-23) 03/20/24 12:11 Creatinine 1.3 mg/dL (0.7-1.2) H 03/20/24 12:11 GFR Calculation Not Reportable 03/20/24 12:11 Glucose 99 mg/dL (65-115) 03/20/24 12:11 Calculated Osmolality 290 mOsm/kg (285-295) 03/20/24 12:11 Calcium 9.8 mg/dL (8.5-10.5) 03/20/24 12:11 Total Bilirubin 0.5 mg/dL (0.15-1.2) 03/20/24 12:11 AST 16 U/L (0-40) 03/20/24 12:11 ALT 14 U/L (0-41) 03/20/24 12:11 Alkaline Phosphatase 56 U/L (40-130) 03/20/24 12:11 Troponin T Baseline 23 ng/L (0-15) H 03/20/24 12:11 NT-Pro-B Natriuret Pep 398 pg/mL (0-450) 03/20/24 12:11 Total Protein 6.4 g/dL (6.6-8.7) L 03/20/24 12:11 Albumin 4.3 g/dL (3.5-5.2) 03/20/24 12:11 Globulin 2.1 g/dL (1.3-4.6) 03/20/24 12:11 TSH 2.12 uIU/mL (0.27-4.20) 03/20/24 12:11 EKG 1: My Interpretation: 3rd degree AVB, rate 43 Prior ECG tracings: available for review 03/20/24 13:06 EKG computer-generated impression: SUPRAVENTRICULAR BRADYCARDIA POSSIBLE LEFT VENTRICULAR HYPERTROPHY [VOLTAGE CRITERIA PLUS LAE OR QRS WIDENING] ST DEPRESSION, CONSIDER SUBENDOCARDIAL INJURY [0.1+ mV ST DEPRESSION] Other data: Recent Outpatient Laboratory Tests 03/01/24 03/17/24 03/17/24 12:30 09:52 10:09 Triglycerides 80 Cholesterol 218 H LDL Cholesterol, Calc 142 H HDL Cholesterol 60 LDL/HDL Ratio 2.37 Cholesterol/HDL Ratio 3.63 Vitamin B12 553 25-OH Vitamin D Total 37 Total Testosterone 443 Free Testosterone 50.7 Bioav Free Testosterone 106.5 Sex Hormone Bind Glob 39 A&P Assessment and plan (1) Third degree heart block: As noted on EKG. The patient's symptoms of fatigue, dyspnea on exertion, and substernal chest pressure are consistent with this diagnosis. Had only minimal coronary artery disease observed in a 2021 arteriogram. Visual disturbances are likely related to cerebral hypoperfusion secondary to cardiac dysfunction. His depression may also be secondary to this. His symptoms have been escalating over the last 4 to 5 months by history and I suspect if this has been present to some degree during that period of time. (2) Elevated blood pressure reading without diagnosis of hypertension: Review of records shows diastolic hypertension in the past with borderline systolic readings. Has been on medications such as beta-blockade previously due to nonsustained ventricular tachycardia noted on Holter monitoring. Has not taken any of this or any other similar cardioactive medications for quite some time due to his fatigue and other symptoms experienced from the medications. (3) EDY (obstructive sleep apnea): Not tolerant of CPAP therapy (4) Depression: Along with memory problems. I suspect based on available history that much of this is due to cardiac conduction abnormalities at this time. Plan Slight increase in creatinine that could be due to hypoperfusion from cardiac dysfunction related to AV block versus exertional/volume related after working in the yard yesterday Borderline platelets Fever blister currently on valacyclovir Inpatient admission ICU level care secondary to heart block Cardiology consultation Continue serial cardiac enzymes and EKGs Pacer pads Anticipate pacemaker placement With borderline low platelets will check coagulation studies Echocardiogram Monitor blood pressures for need to initiate treatment Oxygen therapy if needed during sleep for sleep apnea Normal saline followed by overnight maintenance fluids Recheck electrolytes in the morning, including magnesium Will continue home valacyclovir for fever blister Supportive care otherwise VTE prophylaxis: currently low risk for VTE, also anticipate procedure Antibiotics: none currently though will continue home antiviral valacyclovir Pending studies: echo Telemetry: ordered due to heart block, with pacer pads Mcgrath: not currently indicated Line(s): peripheral IVs Disposition plan: Home with outpatient follow up to cardiology anticipated along with activity restrictions short term post pacemaker, assuming that is the plan of care recommended by cardiology Code Status: Full Code presently. Explained to him that with the heart block if something were to happen and his heart quit beating or he quit breathing because of this diagnosis, immediate intervention more likely result in return to quality of life that he currently has since he is already in the hospital. He and his agreed with this. He would not want any long-term resuscitative efforts, however, based on discussion. Findings, concerns and plans were discussed with patient and his and they were given an opportunity to ask questions. Attestations 2 Medical Necessity Statement*: Anticipated stay greater than two midnights. The primary focus is on managing the severe conduction abnormality confirmed as a third-degree heart block, which accounts for the presented symptoms. The recommendation for a pacemaker is critical and aligns with improving cardiac rhythm and overall functionality. The patient agrees with the proposed intervention strategy. The previous arteriogram confirms that coronary artery disease is not a significant contributor to his current symptoms; therefore, the urgency remains in addressing the arrhythmia. Visual disturbances and other systemic symptoms are expected to resolve following stabilization of cardiac rhythm. ICU monitoring ensures readiness for acute changes in patient status. Immediate care aims for risk mitigation, prevention of adverse outcomes, and an expedited return to normal activity levels. Diagnoses Third degree heart block I44.2 Elevated blood pressure reading without diagnosis of hypertension R03.0 EDY (obstructive sleep apnea) G47.33 Depression F32.A
[2024-03-20 12:43] LABS: Troponin(5th) Baseline 23 ng/L (0-15)
[2024-03-20 12:53] LABS: Alanine Aminotransferase 14 U/L (0-41); Albumin Level 4.3 g/dL (3.5-5.2); Alkaline Phosphatase 56 U/L (40-130); Anion Gap 11.6 (5-19); Aspartate Amino Transferase 16 U/L (0-40); Blood Urea Nitrogen 19 mg/dL (8-23); Calcium 9.8 mg/dL (8.5-10.5); Carbon Dioxide 28 mmol/L (22-29); Chloride 104 mmol/L (98-107); Globulin 2.1 g/dL (1.3-4.6); Glucose 99 mg/dL (65-115); NT Pro B Type Natriuretic Pept 398 pg/mL (0-450); Osmolality Calculated 290 mOsm/kg (285-295); Potassium 4.6 mmol/L (3.5-5.1); Sodium 139 mmol/L (136-145); Thyroid Stimulating Hormone 2.12 uIU/mL (0.27-4.20); Total Bilirubin 0.5 mg/dL (0.15-1.2); Total Protein 6.4 g/dL (6.6-8.7)
[2024-03-20 13:01] LABS: Creatinine Clr Calc Pharmacy 55.3414
--- NOTE | 2024-03-20 13:15 | USCV_ITS ---
Sixto Starks Age: 73 Gender: M : 1950 Exam Date: 03/20/2024 13:47 Ordering Phys: Myriam Epstein NP Technologist: Exam [place] [facility] [place]: cp sob BP: 137 / 67 HR: 67 Rhythm: Sinus Technical Quality: Adequate MEASUREMENTS (Male / Female) Normal Values 2D ECHO LV Diastolic Diameter PLAX 5.2 cm 4.2 - 5.9 / 3.9 - 5.3 cm IVS Diastolic Thickness 1.2 cm 0.6 - 1.0 / 0.6 - 0.9 cm IVS Systolic Thickness 1.6 cm LVPW Diastolic Thickness 1.0 cm 0.6 - 1.0 / 0.6 - 0.9 cm LVPW Systolic Thickness 2.4 cm LVOT Diameter 2.1 cm LV Ejection Fraction 2D Teich 66.8 % LV Ejection Fraction MOD 4C 66.5 % LV Ejection Fraction MOD 2C 62.3 % LV Ejection Fraction 2C AL 62.7 % LA Diameter 3.9 cm RA Systolic Volume 4C AL 99.2 ml RA Systolic Volume 4C MOD 97.6 ml Aorta at Sinotubular Diameter 3.0 cm IVC Diameter 1.4 cm M-MODE LA Ao Ratio MM 1.5 AV Cusp Separation MM 2.1 cm DOPPLER LVOT Peak Velocity 88.0 cm/s MV Area PHT 4.9 cm squared Mitral E to A Ratio 1.6 TR Peak Velocity 156.0 cm/s TR Peak Gradient 9.7 mmHg TV Peak E Velocity 95.0 cm/s Right Atrial Pressure 3.0 mmHg Pulmonary Artery Systolic Pressu 12.7 mmHg PV Peak Velocity 98.0 cm/s FINDINGS Left Ventricle Left ventricle is normal in size. LV systolic function is normal with EF of 55 to 60%. No regional wall motion abnormalities seen. Right Ventricle Normal in size and function Right Atrium Dilated Left Atrium Normal in size Mitral Valve Grossly normal Aortic Valve Structurally normal aortic valve. Tricuspid Valve Mild tricuspid regurgitation. Insufficient TR jet to calculate RVSP Pulmonic Valve Mild pulmonic regurgitation. Pericardium Normal Aorta Normal in size IVC Appears to be normal CONCLUSIONS LV systolic function is normal with EF of 55-60% Right atrial dilation Mild tricuspid regurgitation Mild pulmonic regurgitation Gelacio Espinal MD (Electronically Signed) Final Date: 22 March 2024 11:13 S
--- NOTE | 2024-03-20 14:03 | P.CONIM_ITS ---
Providers/Reason For Consult 2 Consulting Physician/Specialty*: Adriana Sanders MD Reason for Consult*: Third degree heart block Requesting Physician: Dr. Mcclendon Attending Physician: Lisset Mcclendon MD Primary Care Provider: Mallory Salazar MD History of Present Illness History of Present Illness Sixto Starks is a very pleasant 73 year old male presenting with third-degree atrioventricular block. On a recent visit to his primary care provider, he reported symptoms of fatigue, memory problems, chest pressure, and dyspnea on exertion, which prompted an electrocardiogram (EKG) that revealed a high-degree atrioventricular block, with recommendation for him to visit emergency room for further evaluation. He did not go at that time, but was encouraged to come in to be evaluated. He has a history of nonsustained VTAC, episodes of syncope a couple of years ago. Previous echo had shown wall motion abnormalities, and a left heart cath was done. This showed the left main was with no significant obstructive lesion. LAD had 20-30% mild diffuse disease in the proximal segment. The left circ had mild diffuse intimal irregularities. The RCA was the dominant vessal with mild diffuse intimal irregularities.He is not having any chest pain or pressure at this time. His main complaint has been shortness of breath with activities. He has no known history of hypertension. Blood pressure was high on admission. He is completely asymptomatic at the time of my assessment. Reports in the last couple of weeks he has had some swelling in his legs but not ankles that comes and goes. No edema on my assessment today. Pertinent history includes hx of sleep apnea, hx of non sustained vtac, hx of hypercholesterolemia. Review of Systems 2 Narrative: Consitutional: denies fever, chills, body aches, or changes in appetite, denies abnormal weight loss Eyes: Denies changes in vision Card: Denies chest pain, palpitations, irregular heart rhythm, reports recent edema, syncope, reports shortness of breath on exertion, denies orthopnea, leg pain with exertion Resp: Denies shortness of breath at rest, denies hemoptysis, denies cough GI: denies abdominal pain, denies nausea or voimting, denies blood in stool Musc: Denies extremity pain, denies limited range of motion or recent injury Skin: Denies rash, lesions, or wounds, denies changes to skin color Neuro: Denies nubmness in extremities, h/a, s/s of stroke Omar: Denies easy bruiding/bleeding All: Denies s/s of allergies Medications/Allergies Home Medications Medication Instructions Recorded Confirmed Last Taken Type Custom Accomadative orthotic with #1 ea 12/14/19 03/20/24 Unknown Rx deep heel cup multivitamin (One Daily 1 tab PO DAILY 01/06/23 03/20/24 Unknown History Multivitamin tablet) valacyclovir 1 gram tablet 1,000 mg PO Q12H 5 days #10 tabs 03/17/24 03/20/24 Unknown Rx (Valtrex) Allergies Allergy/AdvReac Type Severity Reaction Status Date / Time magnesium oxide Allergy Severe ADR-Diarrhe Verified 03/17/24 07:52 a terbinafine Allergy loss of Verified 03/17/24 07:52 taste PFSH Acute 2 PFSH: Medical History History of Holter monitoring 10/2021 NSR with PVCs and occasional NSVT History of sleep study 08/2022 History of squamous cell carcinoma of skin History of basal cell carcinoma of skin EDY (obstructive sleep apnea) not compliant with CPAP therapy Testosterone deficiency B12 deficiency Chronic pruritus Depression Kidney stones Diverticulosis Carotid artery occlusion <50% stenosis bilaterally, moderate atheromatous plaque bilaterally Ventricular arrhythmia PVC and NSVT Abnormal EKG incomplete rbbb Dyslipidemia History of malignant melanoma Surgical History History of bilateral cataract extraction History of cardiac catheterization 10/2021 - mild diffuse coronary artery disease. LVEDP of 3mmHg History of Mohs micrographic surgery for skin cancer History of submandibular gland removal right, benign History of rotator cuff surgery right Family History Mother , 88 Dementia Grandmother Stroke Father , 92, worked in the garden the day he No problems noted. Other Malignant melanoma Denies family history of Diabetes CAD (coronary artery disease) Clotting disorder Chronic kidney disease (CKD) Suicide Anesthesia complication Bleeding disorder Lung disease Cancer Social History Smoking and tobacco/nicotine status: former use of tobacco/nicotine Quit status (tobacco/nicotine): has quit using Year quit tobacco: 1999 Former quit date comment: 20 pack year history Alcohol intake: current Alcohol intake frequency: holidays/special occasions only Substance/Drug Use: never Household members: spouse Marital status: Number of children: 0 service: Yes status: Discharged branch: [employer] Current occupational status: retired 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 Special vesta needs: No Agree to transfusion: Yes Vitals/I&O/Wt Last Vital Signs Temp 98.1 F 03/20/24 11:45 Pulse 52 L 03/20/24 13:44 Resp 18 03/20/24 11:45 BP 176/89 03/20/24 13:44 Pulse Ox 96 03/20/24 13:44 O2 Del Method Room Air 03/20/24 13:28 Weight last 48 hrs Weight 175 lb Physical Exam 2 Narrative: General: No apparent distress, healthy appearing, well nourished Neck: No carotid bruit bilaterally Muskuloskeletal: Full ROM Lymphatic: no lymphedema noted Respiratory: Normal respiratory effort, clear to auscultation bilaterally throughout all lung lewis, no use of accessory muscles Cardio: No JVD, bradycardia, regular rhythm, S1 S2 normal, no murmurs, peripheral pulses 2+ throughout GI: Normal to inspection, nondistended Extremities: Full ROM, normal, normal capillary refill, no cyanosis or edema Neuro: Alert and oriented x4, no focal motor deficits Psych: Affect normal, denies suicidal ideation, mental status grossly normal Skin: No rashes or lesions noted, no wounds Data 03/20/24 12:11 03/20/24 12:11 Other data: 11/22/21 Left heart cath Conclusions 1. 70-year-old white male with a multiple risk factors for coronary artery disease, presenting with palpitations/near syncope. He was found to have nonsustained ventricular tachycardia and frequent PVCs on the monitor. Echocardiogram revealed some wall motion abnormalities. In view of his symptoms and objective findings, in order to further evaluate his coronary status, a cardiac catheterization was recommended. Patient underwent left heart catheterization with left and right coronary angiogram today. The findings are as follows.. 2. 1. Mild diffuse coronary artery disease. 2. LVEDP of 3 mmHg. Echo complete 11/21 CONCLUSIONS Normal LV size with a borderline low ejection fraction of 50 to 55%. Wall motion abnormality as mentioned above Mild biatrial enlargement. Trace tricuspid valve regurgitation. There is no pericardial effusion. There are no intracardiac masses. No similar previous studies are available for comparison A&P Assessment and plan (1) Third degree heart block: Patient is currently asymptomatic at this time. Heart rate in the upper 40s on average. Will add atropine 1 mg prn symptomatic bradycardia in the 30s or sustained heart rate in the 30s. The plan is for pacemaker placement tomorrow. The patient was educated on the procedure and agrees to proceed. Discussed this with Dr. Bolton. (2) Elevated blood pressure reading without diagnosis of hypertension: At this time, patient has low heart rate. Blood pressure is elevated. Will monitor as patient has no hx of hypertension. (3) Dyslipidemia: Previous ldl was elevated at 142. We will discuss adding statin in the future. Plan The plan for this very pleasant 73 year old gentleman is to take him for pacemaker placement tomorrow. Will get an echo as well due to rule out any structural abnormalities or heart failure. Thank you for allowing us to take care of this very pleasant 73 year old gentleman. Coding Level of Care Code Acute Code for Chg Fwd Diagnoses Third degree heart block I44.2 Elevated blood pressure reading without diagnosis of hypertension R03.0 Dyslipidemia E78.5
[2024-03-20] MEDS: sodium chloride 0.9% 500 ML 100 ML IV (14:21)
[2024-03-20 15:26] LABS: Troponin 5 2HR 23.67 ng/L (0-15); Troponin 5 2HR Delta 0.67 ABS# (0-10)
--- NOTE | 2024-03-20 15:36 | ECG_ITS ---
[facility] Test Date: 2024-03-20 Pat Name: Sixto Starks Department: Room: [facility]05 Gender: Male Mash Processing Operator: : 1950 Requested By: Esvin Erickson Order Number: [id number] Reading MD: JOSE LARA Measurements Intervals [place] Rate: 53 P: 0 [place]: 0 QRS: 82 QRSD: 80 T: 66 QT: 457 QTc: 429 Interpretive Statements SINUS RHYTHM WITH HIGH GRADE AV BLOCK MOBITZ type [address]ULAR HYPERTROPHY AND [address]-T CHANGE [VOLTAGE CRITERIA PLUS ST/T ABNORMALITY] POSSIBLE SEPTAL MYOCARDIAL INFARCTION , OF INDETERMINATE AGE [30 ms Q WAVE IN V1/V2] CRITICAL TEST RESULT Compared to ECG 03/20/2024 11:39:43 Myocardial infarct finding now present ST (T wave) deviation still present Electronically Signed On 03-22-2024 18:17:02 PRIVACY ANALYST by JOSE LARA [email or web address]
[2024-03-20 16:29] LABS: Add Urine Microscopic? YES; Bacteria Urine None Seen /hpf; Bilirubin Urine Negative (Negative); Blood Urine Negative (Negative); Glucose Urine UA Negative (Normal); Hyaline Casts Urine 0-4 /lpf; Ketones Urine Negative (Negative); Leukocyte Esterase Urine Negative (Negative); Nitrate Urine Negative (Negative); Protein Urine Negative (Negative); RBC Urine 0-2 /hpf (0-2); Squamous Epithelial Cell Urine 0-5 /hpf (0-5); Urine Appearance Clear (CLEAR); Urine Color Yellow (Yellow); WBC Urine 0-5 /hpf (0-5); pH Urine 5.5 (5-7)
--- NOTE | 2024-03-20 18:08 | ECG_ITS ---
[employer] Test Date: 2024-03-20 Pat Name: Sixto Starks Department: Room: [facility]05 Gender: Male Mini Lab Operator: : 1950 Requested By: Esvin Erickson Order Number: [id number] [place] MD: JOSE LARA Measurements Intervals [place] Rate: 38 P: 258 [place]: 325 QRS: 78 QRSD: 82 T: 76 QT: 509 QTc: 409 Interpretive Statements ECTOPIC ATRIAL BRADYCARDIA WITH FIRST DEGREE AV BLOCK MINIMAL VOLTAGE CRITERIA FOR LVH, CONSIDER NORMAL VARIANT [MEETS CRITERIA IN ONE OF: R(aVL), S(V1), R(V5), R(V5/V6)+S(V1)] MINIMAL ST DEPRESSION [0.025+ mV ST DEPRESSION] CRITICAL TEST RESULT Compared to ECG 03/20/2024 15:36:18 Bradycardia, nonsinus now present First degree AV block now present Sinus rhythm no longer present Myocardial infarct finding no longer present ST (T wave) deviation still present Electronically Signed On 03-22-2024 18:16:39 SEAFOOD PREPARER by JOSE LARA [id number]
[2024-03-20 18:30] LABS: Troponin 5 6HR 24.87 ng/L (0-15); Troponin 5 6HR Delta 1.87 ng/L (0-12)
--- NOTE | 2024-03-20 20:25 | PM.CONSULT ---
Providers/Reason For Consult Consulting Physician/Specialty*: NIRANJAN Bolton MD/cardiology Reason for Consult*: Patient with third-degree heart block/symptomatic bradycardia to consider permanent pacemaker implantation Requesting Physician: Dr. Sanders Attending Physician: Lisset Mcclendon MD Primary Care Provider: Mallory Salazar MD History of Present Illness History of Present Illness Sixto Starks is a 73 year old male w is admitted to hospital with complaints of tiredness/easy fatigability and some lower substernal discomfort. He was found to be in third-degree heart block with ventricular rate of 35-42 beats per minute. The sinus rate was in the 80s. According the patient, he been feeling somewhat tired for the last couple of months. 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 He never had any syncopal episodes. But he been having some occasional unsteadiness and memory issues. No fever, chills or cough. He had a categorization in 2021 and was found to have no significant obstructive coronary artery disease Patient has admitted to the hospital in October 2021 with complaints of annual syncopal episode. He was found to have nonsustained ventricular tachycardia on the monitor. He also is known to have dyslipidemia. Subsequent cardiac arrest revealed mild coronary artery disease. Review of Systems Narrative: CONSTITUTIONAL: No fever or chills. Easy fatigability as mentioned above EYES: No blurring of vision or other visual disturbances lately. ENT: No hoarseness of voice, auditory disturbances or sore throat. CARDIOVASCULAR: As mentioned above. RESPIRATORY: No significant cough. GASTROINTESTINAL: No hematemesis or melena. GENITOURINARY: No dysuria or hematuria. INTEGUMENTARY: No skin rashes or history of skin cancer. NEURO: No transient ischemic attacks or amaurosis. Has been having some memory issues PSYCHIATRIC: No history of psychosis or major depression. HEMATOLOGIC: No bleeding disorders or significant anemia. ENDOCRINE: No history of polyuria or polydipsia. MUSCULOSKELETAL: No recent joint pain or swelling. ALLERGY/IMMUNOLOGY: As mentioned above. Medications/Allergies Home Medications Medication Instructions Recorded Confirmed Last Taken Type Custom Accomadative orthotic with #1 ea 12/14/19 03/20/24 Unknown Rx deep heel cup multivitamin (One Daily 1 tab PO DAILY 01/06/23 03/20/24 Unknown History Multivitamin tablet) valacyclovir 1 gram tablet 1,000 mg PO Q12H 5 days #10 tabs 03/17/24 03/20/24 Unknown Rx (Valtrex) Allergies Allergy/AdvReac Type Severity Reaction Status Date / Time magnesium oxide Allergy Severe ADR-Diarrhe Verified 03/17/24 07:52 a terbinafine Allergy loss of Verified 03/17/24 07:52 taste PFSH Acute PFSH: Medical History History of Holter monitoring 10/2021 NSR with PVCs and occasional NSVT History of sleep study 08/2022 History of squamous cell carcinoma of skin History of basal cell carcinoma of skin EDY (obstructive sleep apnea) not compliant with CPAP therapy Testosterone deficiency B12 deficiency Chronic pruritus Depression Kidney stones Diverticulosis Carotid artery occlusion <50% stenosis bilaterally, moderate atheromatous plaque bilaterally Ventricular arrhythmia PVC and NSVT Abnormal EKG incomplete rbbb Dyslipidemia History of malignant melanoma Surgical History History of bilateral cataract extraction History of cardiac catheterization 10/2021 - mild diffuse coronary artery disease. LVEDP of 3mmHg History of Mohs micrographic surgery for skin cancer History of submandibular gland removal right, benign History of rotator cuff surgery right Family History Mother , 88 Dementia Grandmother Stroke Father , 92, worked in the garden the day he No problems noted. Other Malignant melanoma Denies family history of Diabetes CAD (coronary artery disease) Clotting disorder Chronic kidney disease (CKD) Suicide Anesthesia complication Bleeding disorder Lung disease Cancer Social History Smoking and tobacco/nicotine status: former use of tobacco/nicotine Quit status (tobacco/nicotine): has quit using Year quit tobacco: 1999 Former quit date comment: 20 pack year history Alcohol intake: current Alcohol intake frequency: holidays/special occasions only Substance/Drug Use: never Household members: spouse Marital status: Number of children: 0 service: Yes status: Discharged branch: [place] Current occupational status: retired 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 Not in any acute distress. HEENT: No significant pallor, icterus or lymphadenopathy.Oral cavity: There are no mucous membrane lesions. NECK: Trachea appears to be central. No masses noted. No JVD or thyromegaly appreciated. RESPIRATORY: Chest is symmetrical. No intercostals muscle retraction or any accessory muscle activation. There is no chest wall tenderness. Breath sounds are heard bilaterally. No rales or rhonchi heard. No evidence of any consolidation. BREASTS: Deferred. HEART: The heart sounds are normal. No S3 or S4. No significant murmurs. No pericardial rub ABDOMEN: No vessel pulsations or distention. No tenderness. No organomegaly appreciated. Bowel sounds are normally heard. : Deferred. RECTAL: Deferred. LYMPHATIC: No lymphadenopathy noted in the neck. EXTREMITIES: No edema or cyanosis. No clubbing. MUSCULOSKELETAL: No acute joint deformities or swelling SKIN: There are no significant rashes or ecchymosis NEUROPSYCHIATRIC: The patient is alert and oriented x3. Appears to be in a good mood. No tremors or rigidity noted. Data 03/20/24 12:11 03/20/24 12:11 Other Labs: Laboratory Last Values WBC 6.44 10^3/uL (3.29-11.43) 03/20/24 12:11 RBC 5.50 10^6/uL (3.85-5.65) 03/20/24 12:11 Hgb 15.90 g/dL (11.27-16.99) 03/20/24 12:11 Hct 48.1 % (37-53) 03/20/24 12:11 MCV 87.5 fl (82-101) 03/20/24 12:11 MCH 28.9 pg (27-33) 03/20/24 12:11 MCHC 33.1 g/dL (30-55) 03/20/24 12:11 RDW 14.0 % (12.1-15.1) 03/20/24 12:11 Plt Count 145 10^3/cmm (157-399) L 03/20/24 12:11 MPV 12.6 fL (7.4-10.4) H 03/20/24 12:11 Neut % (Auto) 61.1 % 03/20/24 12:11 Lymph % (Auto) 24.8 % 03/20/24 12:11 [place] % (Auto) 7.9 % 03/20/24 12:11 Eos % (Auto) 5.1 % 03/20/24 12:11 Baso % (Auto) 0.9 % 03/20/24 12:11 Neut # (Auto) 3.93 10^3/uL (1.8-7.7) 03/20/24 12:11 Lymph # (Auto) 1.6 10^3/uL (0.8-4.8) 03/20/24 12:11 [place] # (Auto) 0.5 10^3/uL (0.2-0.9) 03/20/24 12:11 Eos # (Auto) 0.3 10^3/uL (0.0-0.8) 03/20/24 12:11 Baso # (Auto) 0.1 10^3/uL (0.0-0.1) 03/20/24 12:11 Nucleated RBC % (auto) 0 % 03/20/24 12:11 Nucleated RBCs # 0.0 /100WBC 03/20/24 12:11 Sodium 139 mmol/L (136-145) 03/20/24 12:11 Potassium 4.6 mmol/L (3.5-5.1) 03/20/24 12:11 Chloride 104 mmol/L (98-107) 03/20/24 12:11 Carbon Dioxide 28 mmol/L (22-29) 03/20/24 12:11 Anion Gap 11.6 (5-19) 03/20/24 12:11 BUN 19 mg/dL (8-23) 03/20/24 12:11 Creatinine 1.3 mg/dL (0.7-1.2) H 03/20/24 12:11 GFR Calculation Not Reportable 03/20/24 12:11 Glucose 99 mg/dL (65-115) 03/20/24 12:11 Calculated Osmolality 290 mOsm/kg (285-295) 03/20/24 12:11 Calcium 9.8 mg/dL (8.5-10.5) 03/20/24 12:11 Total Bilirubin 0.5 mg/dL (0.15-1.2) 03/20/24 12:11 AST 16 U/L (0-40) 03/20/24 12:11 ALT 14 U/L (0-41) 03/20/24 12:11 Alkaline Phosphatase 56 U/L (40-130) 03/20/24 12:11 Troponin T Baseline 23 ng/L (0-15) H 03/20/24 12:11 Troponin T 120 Minute 23.67 ng/L (0-15) H 03/20/24 14:53 Delta Troponin T 0.67 ABS# (0-10) 03/20/24 14:53 Troponin T Hi Sens 6Hr 24.87 ng/L (0-15) H 03/20/24 18:05 Troponin T Hi Sens 6Hr Delta 1.87 ng/L (0-12) 03/20/24 18:05 NT-Pro-B Natriuret Pep 398 pg/mL (0-450) 03/20/24 12:11 Total Protein 6.4 g/dL (6.6-8.7) L 03/20/24 12:11 Albumin 4.3 g/dL (3.5-5.2) 03/20/24 12:11 Globulin 2.1 g/dL (1.3-4.6) 03/20/24 12:11 TSH 2.12 uIU/mL (0.27-4.20) 03/20/24 12:11 Urine Color Yellow (Yellow) 03/20/24 15:44 Urine Appearance Clear (CLEAR) 03/20/24 15:44 Urine pH 5.5 (5-7) 03/20/24 15:44 Ur Specific [place] 1.020 (1.005-1.030) 03/20/24 15:44 Urine Protein Negative (Negative) 03/20/24 15:44 Urine Glucose (UA) Negative (Normal) 03/20/24 15:44 Urine Ketones Negative (Negative) 03/20/24 15:44 Urine Blood Negative (Negative) 03/20/24 15:44 Urine Nitrate Negative (Negative) 03/20/24 15:44 Urine Bilirubin Negative (Negative) 03/20/24 15:44 Urine Urobilinogen 1.0 mg/dL (Negative) 03/20/24 15:44 Ur Leukocyte Esterase Negative (Negative) 03/20/24 15:44 Urine RBC 0-2 /hpf (0-2) 03/20/24 15:44 Urine WBC 0-5 /hpf (0-5) 03/20/24 15:44 Ur Squamous Epith Cells 0-5 /hpf (0-5) 03/20/24:44 Amorphous Sediment Not Reportable 03/20/24 15:44 Urine Bacteria None seen /hpf (NONE) 03/20/24 15:44 Hyaline Casts 0-4 /lpf H 03/20/24 15:44 A&P Assessment and plan (1) Third degree heart block: Patient has a third-degree heart block with junctional escape rhythm. Heart rate is around 35 to 42/ beats per minute. (2) Ventricular arrhythmia: Patient has a history of ventricular arrhythmia. He had an event monitor in 2021 which revealed a PVC burden of 5%. He had occasional nonsustained regular tachycardia as well. Currently he seems to have occasional ventricular ectopics on the monitor. (3) Dyslipidemia: Patient is on dietary modification. (4) Elevated blood pressure reading without diagnosis of hypertension: The blood pressure seems to be in the 150s and 160s. Plan Elevated creatinine, possibly from acute kidney injury. In view of the third-degree heart block and symptomatic bradycardia, I agree with the recommendation for permanent pacer implantation. I will be reviewing the echocardiogram , to evaluate the LV ejection fraction. Patient may be carefully hydrated. May give amlodipine 2.5 mg for blood pressure above 170 mmHg I discussed the patient the risk and benefits of the permanent pacemaker implantation. The risk of bleeding, hematoma, vascular injury, myocardial perforation, pericardial tamponade pneumothorax, infection, renal failure and other concomitant complications were explained in detail. The patient understood this well and consented to proceed. Will try to do this procedure tomorrow. Since we do not have any cardiac surgery available in the hospital, the possibility of him requiring emergency transfer with any complication arising during or after the procedure also was discussed with the patient. The patient understands this limitation and is still wanting to go ahead with the procedure in our facility. Consult Attestations Medical Necessity Statement: Patient requires continued hospital stay for close monitoring and further management Coding Level of Care Code Acute Code for Chg Fwd Diagnoses Third degree heart block I44.2 Ventricular arrhythmia I49.9 Dyslipidemia E78.5 Elevated blood pressure reading without diagnosis of hypertension R03.0
[2024-03-20] MEDS: valACYclovir 1,000 mg Tablet 1000 MG PO (21:04)
[2024-03-20] MEDS: D5-NS 0.45% + KCL 20 mEq 20 MEQ/1,000 ML BAG 75 MEQ IV (21:05)
[2024-03-21] VITALS (145 sets, daily range): BP systolic 121–194; BP diastolic 62–111; PULSE 32–85; RESP 4–23; TEMP 37.2; O2SAT 88–100
[2024-03-21] MEDS: atropine 0.1 mg/mL Syr 10 mL 1 MG IVP (03:14)
--- NOTE | 2024-03-21 03:30 | PC.NURSE ---
Contacted physician Contacted Dr. Payne regarding patient's HR dipping into the high 20s. Received go-ahead to give a syringe of atropine.
[2024-03-21 04:17] LABS: Basophils % 0.7 %; Eosinophils # 0.4 10^3/uL (0.0-0.8); Eosinophils % 6.6 %; Hematocrit 45.9 % (37-53); Lymphocytes # 1.2 10^3/uL (0.8-4.8); Lymphocytes % 21.7 %; Mean Corpuscular HGB Conc 33.1 g/dL (30-55); Mean Corpuscular Hemoglobin 29.2 pg (27-33); Mean Corpuscular Volume 88.1 fl (82-101); Mean Platelet Volume 12.4 fL (7.4-10.4); Monocytes # 0.4 10^3/uL (0.2-0.9); Monocytes % 7.6 %; Neutrophils # 3.56 10^3/uL (1.8-7.7); Neutrophils % 63.2 %; Nucleated Red Blood Cells % 0 %; Platelet Count 121 10^3/cmm (157-399); Red Blood Count 5.21 10^6/uL (3.85-5.65); Red Cell Distribution Width 13.7 % (12.1-15.1); White Blood Count 5.63 10^3/uL (3.29-11.43)
[2024-03-21 04:31] LABS: INR 0.95 (0.8-1.2)
[2024-03-21 04:32] LABS: Partial Thromboplastin Time 26.8 SECONDS (23.9-36.7)
[2024-03-21 04:38] LABS: Blood Urea Nitrogen 15 mg/dL (8-23); Calcium 8.4 mg/dL (8.5-10.5); Carbon Dioxide 28 mmol/L (22-29); Chloride 107 mmol/L (98-107); Creatinine Clr Calc Pharmacy 59.9532; Glucose 123 mg/dL (65-115); Magnesium 2.2 mg/dL (1.7-2.3); Osmolality Calculated 294 mOsm/kg (285-295); Sodium 141 mmol/L (136-145)
[2024-03-21 04:43] LABS: Anion Gap 10.4 (5-19); Potassium 4.4 mmol/L (3.5-5.1)
[2024-03-21] MEDS: valACYclovir 1,000 mg Tablet 1000 MG PO ×2 (08:05→20:30)
--- NOTE | 2024-03-21 10:15 | ECG_ITS ---
[facility] Date: 2024-03-21 Pat Name: Sixto Starks Department: Room: [facility]05 Gender: Male Tin Flopper: : 1950 Requested By: Lisset Mcclendon Order Number: [id number] Reading MD: JOSE LARA Measurements Intervals [place] Rate: 38 P: 0 [place]: 0 QRS: 77 QRSD: 81 T: 76 QT: 536 QTc: 430 Interpretive Statements SINUS BRADYCARDIA with intermittent Mpbitz type 1 heart block and PVC SEPTAL MYOCARDIAL INFARCTION , OF INDETERMINATE AGE [40+ ms Q WAVE IN V1/V2] CRITICAL TEST RESULT Compared to ECG 03/20/2024 18:08:58 Myocardial infarct finding now present Bradycardia, nonsinus no longer present intermittent Mobitz type [address] (T wave) deviation no longer present Electronically Signed On 03-22-2024 18:15:20 INSURANCE LAW SPECIALIST by JOSE LARA [id number]
--- NOTE | 2024-03-21 12:25 | W.PM.OPSUD ---
Surgery/Procedure H&P Update DATE OF PROCEDURE: March 21, 2024 DATE H&P PERFORMED: 03/20/24 H&P UPDATE INFORMATION: I have reviewed H&P completed within last 30 days, I have examined patient prior to procedure and No changes to prior documentation PREOP DIAGNOSIS: Symptomatic bradycardia/third-degree heart block PRIMARY INDICATION FOR PROCEDURE: Symptomatic bradycardia/third-degree heart block PLANNED PROCEDURE: Temporary pacemaker wire through the right femoral vein and a permanent pacemaker implantation, dual-chamber through the subclavian vein Operation Date: 03/21/24 12:00 Proposed Procedures p Pacemaker Insertion(Not Applicable) - Oz Bolton MD PATIENT REASSESSED PRIOR TO SEDATION, WITH NO CHANGE NOTED: Yes PHYSICAL EXAM: alert, oriented x 3, clear to auscultation bilaterally and regular rate & rhythm AIRWAY EVAL/ANESTHESIA PLAN: normal airway, see other exam findings, ASA III, Monitored Anesthesia, Local Anesthesia, Risks, benefits & alternatives of sedation and/or procedure discussed and Patient agrees to continue as planned
--- NOTE | 2024-03-21 13:07 | P.PN_ITS ---
Subjective 2 Subjective: He states he is feeling all right. Overnight his heart rate came down quite low down to the lowest 22. Received atropine. Currently he is reclined in bed. No dizziness, lightheadedness, presyncope or other complaints. Vitals/I&O/Wt Last Vital Signs Temp 98.9 F 03/21/24 05:51 Pulse 48 L 03/21/24 10:50 Resp 9 L 03/21/24 10:50 BP 178/70 03/21/24 10:50 Pulse Ox 97 03/21/24 10:50 O2 Del Method Room Air 03/20/24 16:49 03/20/24 03/21/24 03/21/24 22:59 06:59 14:59 Intake Total 500 / 500 0 / 500 1000 / 1000 Output Total 400 / 400 450 / 850 400 / 400 Balance 100 / 100 -450 / -350 600 / 600 Weight last 48 hrs Weight 78.5 kg Weight 78 kg Weight 79.379 kg Weight 79.379 kg Physical Exam 2 Const: COMMON NORMALS: patient oriented x3 and alert GENERAL APPEARANCE: c ooperative ORIENTATION/CONSCIOUSNESS: Yes awake HENMT: COMMON NORMALS: oropharynx normal Resp: COMMON NORMALS: normal respiratory effort and clear to auscultation bilaterally AUSCULTATION: clear to auscultation bilaterally Cardio: COMMON NORMALS: S1 normal heart sound present, S2 normal heart sound present and No murmurs present (Cardio) RATE: bradycardic HEART SOUNDS: S1 normal heart sound present and S2 normal heart sound present GI: COMMON NORMALS: Normal to inspection, nondistended, normoactive bowel sounds present, Soft to palpation and non-tender PALPATION: Yes Soft to palpation Extremity: COMMON NORMALS: no joint enlargement and no pedal edema Neuro: COMMON NORMALS: patient oriented x3 and moves all extremities S ENSORIUM/ORIENTATION: Yes alert Skin: COMMON NORMALS: no rashes or lesions noted GENERAL SKIN EXAM: no rashes or lesions noted Data 03/21/24 04:05 03/21/24 04:05 A&P Assessment and plan (1) Third degree heart block: Severe bradycardia with third-degree heart block. Reviewed vitals, CBC, INR, BMP, magnesium. Overnight became bradycardic down as low as 22, received atropine. Discussed with extended day teacher. She is scheduled for permanent pacemaker this afternoon. Pacing pads in place. As noted on EKG. The patient's symptoms of fatigue, dyspnea on exertion, and substernal chest pressure are consistent with this diagnosis. Had only minimal coronary artery disease observed in a 2021 arteriogram. Visual disturbances are likely related to cerebral hypoperfusion secondary to cardiac dysfunction. His depression may also be secondary to this. His symptoms have been escalating over the last 4 to 5 months by history and I suspect if this has been present to some degree during that period of time. Pending echocardiogram. (2) Elevated blood pressure reading without diagnosis of hypertension: Reflex hypertension secondary to severe bradycardia with third-degree AV block superimposed on chronic hypertension. Scheduled for permanent pacemaker this afternoon. Monitor blood pressures. Review of records shows diastolic hypertension in the past with borderline systolic readings. Has been on medications such as beta-blockade previously due to nonsustained ventricular tachycardia noted on Holter monitoring. Has not taken any of this or any other similar cardioactive medications for quite some time due to his fatigue and other symptoms experienced from the medications. (3) EDY (obstructive sleep apnea): Not tolerant of CPAP therapy (4) Depression: Along with memory problems. I suspect based on available history that much of this is due to cardiac conduction abnormalities at this time. Plan Slight increase in creatinine that could be due to hypoperfusion from cardiac dysfunction related to AV block versus exertional/volume related after working in the yard yesterday. Reviewed renal function, improved, creatinine down to 1.2. Borderline platelets. Mild thrombocytopenia, iron 21. Repeat CBC. 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 Repeat CBC, reassess thrombocytopenia. Attestations 2 Medical Necessity Statement*: Continue admission for assessment of management of third-degree block, permanent pacemaker placement. and High MDM includes number and complexity of problems actively addressed during encounter and amount and/or complexity of data reviewed/ordered [ resulted lab(s)/test(s), ordered lab(s)/test(s) and other healthcare professional discussion] as documented Diagnoses Third degree heart block I44.2 Elevated blood pressure reading without diagnosis of hypertension R03.0 EDY (obstructive sleep apnea) G47.33 Depression F32.A
[2024-03-21] MEDS: fentaNYL 50 mcg/mL INJ 2mL IVP (15:51)
--- NOTE | 2024-03-21 17:14 | P.OP_ITS ---
Operative Report Date of procedure: March 21, 2024 Surgeon: Oz Bolton MD Procedure: LOCATION: ICU PREOPERATIVE DIAGNOSES: Third-degree heart block/symptomatic bradycardia. POSTOPERATIVE DIAGNOSES: Same. COMPLICATIONS: None. ESTIMATED BLOOD LOSS: Around 5 milliliters. BRIEF HISTORY: 73-year-old white male was admitted to the hospital with complaints of generalized weakness/some atypical chest symptoms. He was found to have third-degree heart block with a heart rate in the 30s. Also had occasional PVCs. No reversible causes were identified. For further management of his condition, permanent pacemaker evaluation was requested. A dual chamber permanent pacemaker implantation was recommended for AV synchrony and symptom relief The procedure was explained to the patient in detail with the risks and alcon efits. The risks of bleeding, hematoma, vascular injury, infection, pneumothorax, myocardial perforation and other concomitant complications were explained in detail, which the patient understood well and consented to proceed. PROCEDURE DESCRIPTION: The patient was brought to the Cardiac Catheterization Lab. I attempted to insert a temporary pacer wire through the right groin. Because of some technical difficulties, this was aborted. The left and the right side of the neck and the subclavian area were cleaned and draped in a sterile fashion. 1% Xylocaine was used as the local anesthetic agent. [Left] subclavian venogram was performed by injecting 20 milliliters of Omnipaque through the left antecubital vein. A [left] subclavian venous access was obtained using a micropuncture needle system, under venographic guidance. . A two-inch long incision was made 2.0 centimeters below the midclavicular region. By sharp and blunt dissection, a pacemaker pocket was made. A 7 Georgian venous sheath with dilator was advanced over the guidewire. The venous dilator was taken out. A second guidewire was advanced through the venous sheath. The venous sheath was removed at this time. Over one of the guidewire, and the venous sheath with dilator was advanced.(Double barrel technique). the venous dilator and the guidewire were taken out. A screw-in ventricular lead was advanced through the venous sheath and was positioned towards the right ventricle. Under fluoroscopic guidance, the ventricular lead was positioned toward the right ventricular apex. Good pacing and sensing thresholds were obtained. The lead was secured to the endocardium by advancing the helix. The stability of the lead was tested by gentle twisting movements and also by asking the patient to take some deep breaths and cough. The venous sheath was peeled off, at this time. The lead was secured to the pectoralis fascia, by suturing with 1-0 Surgilon. Over the second guidewire, another 7-Georgian venous sheath with dilator was advanced. The dilator and the guidewire were taken out. Under fluoroscopic guidance, an atrial lead (Medtronic), was advanced and positioned toward the right atrium. The lead was positioned in the right atrial appendage. Good pacing and sensing thresholds were obtained. The lead was secured to the endocardium by advancing the helix. Stability of the lead was tested by gentle twisting movements and also by asking the patient to take some deep breaths and cough. The venous sheath was peeled off, at this time. The lead was secured to the pectoralis fascia by suturing with 0-Surgilon. The pacemaker pocket was copiously irrigated with vancomycin solution. Complete hemostasis was achieved. Sponge counts were confirmed. The leads were attached to a Medtronic generator. The leads were positioned behind the generator and the generator was attached to the pectoralis fascia by suturing with 0-Surgilon. The pocket was closed in layers. Skin was approximated using 4-0 Vicryl. IMPLANTED DEVICES: ATRIAL LEAD: Model number: 5076/52 Serial number: [id number] Make: Medtronic VENTRICULAR LEAD: Model number: 5076/58 Serial number: [id number] Make: Medtronic GENERATOR Brand: Bonnie XT DR MRI Surescan Model number: W1 DR 01 Serial number: [id number] Make: Medtronic IMPLANTATION DATA: With the pacing system analyzer, the R wave sensing was 8.8 millivolts with a lead impedance of 898 and a pacing threshold was 1.25 volts at 0.4 milliseconds. In the atrium, the sensing was 1.8 millivolts with a lead impedance of 589 ohms and a pacing threshold was 1.0 volts at 0.4 milliseconds. Through the device, the R-wave sensing was not obtained because of the pacer dependency with a lead impedance of 703 and a pacing threshold was 0.75 volts at 0.4 milliseconds. The atrial sensing was 2.9 millivolts with a lead impedance of 589 ohms and a pacing threshold of 1.0 volts at 0.4 milliseconds. The pacemaker was set for DDDR mode with upper rate of 120 and a lower rate of 60. A pressure dressing was applied over the pacemaker site. The patient was transferred to the Medical Floor in stable condition. A chest x-ray was ordered to confirm the lead position and also to rule out any pneumothorax.
--- NOTE | 2024-03-21 19:23 | XRR_ITS ---
PROCEDURE INFORMATION: Exam: XR Chest Exam date and time: 03/21/2024 7:31 PM Age: 73 years old Clinical indication: Device placement; Other: Pacemaker; Prior surgery; Surgery date: Post-operative (0-2 days); Surgery type: Pacer; Additional info: Pacemaker placement TECHNIQUE: Imaging protocol: Radiologic exam of the chest. Views: 1 view. COMPARISON: CR XR chest 1V portable [id number] 03/20/2024 12:26 PM FINDINGS: Lungs: Increased lung volumes. No lobar consolidation. Pleural spaces: Unremarkable. No pleural effusion. No pneumothorax. Heart/Mediastinum: Unremarkable. No cardiomegaly. Bones/joints: Unremarkable. XR/XR chest 1V portable [id number] IMPRESSION: As above.
[2024-03-21] MEDS: hyDRALAzine 20 mg/mL INJ 1 mL 10 MG IVP (19:26)
[2024-03-21] MEDS: ceFAZolin 2,000 mg SDV 2000 MG IVP (19:35)
[2024-03-21] MEDS: ondansetron 2 mg/ML SDV 2 mL 1 MG IVP (20:16)
--- NOTE | 2024-03-21 20:18 | ECG_ITS ---
[facility] Test Date: 2024-03-21 Pat Name: Sixto Starks Department: Room: [facility]05 Gender: Male Coding Specialist Home Health: : 1950 Requested By: Jewel Aguirre Order Number: [id number] Zaire MD: JOSE LARA Measurements Intervals [place] Rate: 79 P: 70 VT: 160 QRS: 259 QRSD: 182 T: 78 QT: 470 QTc: 540 Interpretive Statements ELECTRONIC VENTRICULAR PACEMAKER ABNORMAL RHYTHM ECG Compared to ECG 03/21/2024 10:15:51 Myocardial infarct finding no longer present Electronically Signed On 03-22-2024 17:25:06 BUSINESS EXCELLENCE LEADER by JOSE LARA [email or web address]
[2024-03-21] MEDS: morphine 4 mg/mL SDV 1 mL 2 MG IVP (20:29)
[2024-03-21] MEDS: metoprolol tartrate 1 mg/1 mL SDV 5 mL 5 MG IVP (20:54)
[2024-03-21] MEDS: nitroglycerin 0.4 mg sublingual Tablet SUBLINGUAL (21:02)
[2024-03-21] MEDS: isosorbide mononitrate 20 mg Tablet 30 MG PO (23:31)
[2024-03-22] VITALS (156 sets, daily range): BP systolic 105–166; BP diastolic 59–144; PULSE 67–107; RESP 1–35; TEMP 36.6–36.9; O2SAT 85–96
[2024-03-22] MEDS: ceFAZolin 2,000 mg SDV 2000 MG IVP ×2 (03:37→13:12)
[2024-03-22 05:39] LABS: Basophils % 0.4 %; Eosinophils # 0.2 10^3/uL (0.0-0.8); Eosinophils % 2.5 %; Hematocrit 44.9 % (37-53); Lymphocytes % 11.8 %; Mean Corpuscular HGB Conc 33.2 g/dL (30-55); Mean Corpuscular Hemoglobin 28.9 pg (27-33); Mean Corpuscular Volume 87.2 fl (82-101); Mean Platelet Volume 11.9 fL (7.4-10.4); Monocytes # 0.5 10^3/uL (0.2-0.9); Monocytes % 6.1 %; Neutrophils # 6.43 10^3/uL (1.8-7.7); Nucleated Red Blood Cells % 0 %; Platelet Count 109 10^3/cmm (157-399); Red Blood Count 5.15 10^6/uL (3.85-5.65); Red Cell Distribution Width 13.8 % (12.1-15.1); White Blood Count 8.14 10^3/uL (3.29-11.43)
[2024-03-22 06:05] LABS: Anion Gap 14.5 (5-19); Blood Urea Nitrogen 15 mg/dL (8-23); Calcium 8.2 mg/dL (8.5-10.5); Carbon Dioxide 25 mmol/L (22-29); Chloride 106 mmol/L (98-107); Creatinine Clr Calc Pharmacy 65.1149; Glucose 118 mg/dL (65-115); Osmolality Calculated 294 mOsm/kg (285-295); Potassium 4.5 mmol/L (3.5-5.1); Sodium 141 mmol/L (136-145)
[2024-03-22] MEDS: acetaminophen 325 mg Tablet 650 MG PO (06:30)
--- NOTE | 2024-03-22 06:39 | ECG_ITS ---
[employer] Test Date: 2024-03-22 Pat Name: Sixto Starks Department: [place]: [facility] Gender: Male Research Tech: : 1950 Requested By: Oz Bolton Order Number: [id number] Zaire MD: JOSE LARA Measurements Intervals [place] Rate: 72 P: 80 RI: 188 QRS: -86 QRSD: 170 T: 88 QT: 479 QTc: 526 Interpretive Statements ELECTRONIC VENTRICULAR PACEMAKER ABNORMAL RHYTHM ECG Compared to ECG 03/21/2024 20:18:36 No significant changes Electronically Signed On 03-22-2024 18:09:12 ACCESS DEVELOPER by JOSE LARA [email or web address]
--- NOTE | 2024-03-22 07:46 | XR_ITS ---
WS: [id number] Exam: XR chest 1V portable [id number] Date/Time of Exam: 03/22/2024 7:55 AM Reason For Exam: SOB Comparison 03/21/2024. The lungs are fully expanded and clear. Chronic changes in the LEFT base. Cardiomediastinal silhouett e is unremarkable. Costophrenic angles are out of the [id number]. Bony structures are intact. Perm anent cardiac pacer over the LEFT chest. Multiple leads superimpose the chest. XR/XR chest 1V portable [id number] IMPRESSION: 1. No acute process identified.
[2024-03-22] MEDS: morphine 4 mg/mL SDV 1 mL 2 MG IVP (07:57)
[2024-03-22] MEDS: ondansetron 2 mg/ML SDV 2 mL 4 MG IVP (08:17)
[2024-03-22] MEDS: valACYclovir 1,000 mg Tablet 1000 MG PO ×2 (08:43→20:45)
[2024-03-22] MEDS: isosorbide mononitrate 20 mg Tablet 30 MG PO (08:46)
--- NOTE | 2024-03-22 09:34 | USCV_ITS ---
Sixto Starks Age: 73 Gender: M : 1950 Exam Date: 03/22/2024 09:58 Ordering Phys: Oz Bolton MD ([email or web address]) Technologist: Exam Location: [facility] [place] Indication: ? fluid BP: / HR: Rhythm: Sinus Technical Quality: Very technically difficult study MEASUREMENTS (Male / Female) Normal Values FINDINGS Left Ventricle This is a limited transthoracic echo, performed to rule out any pericardial effusion. No pericardial effusion was noted in the study. Only epigastric views were obtained Right Ventricle Right Atrium Left Atrium Mitral Valve Aortic Valve Tricuspid Valve Pulmonic Valve Pericardium Aorta IVC CONCLUSIONS No evidence of pericardial effusion based on thetudy above study. Dr Oz Bolton MD FACC (Electronically Signed) Final Date: 23 March 2024 08:23 S
[2024-03-22] MEDS: sodium chloride 0.9% 250 ML 999 ML IV (10:07)
--- NOTE | 2024-03-22 10:07 | ECG_ITS ---
[facility] Test Date: 2024-03-22 Pat Name: Sixto Starks Department: Room: [facility]05 Gender: Male Brass And Wind Instrument Repairer: : 1950 Requested By: Myriam Epstein Order Number: [id number] Zaire MD: JOSE LARA Measurements Intervals [place] Rate: 98 P: 76 DC: 208 QRS: 269 QRSD: 161 T: 83 QT: 430 QTc: 550 Interpretive Statements ELECTRONIC VENTRICULAR PACEMAKER ABNORMAL RHYTHM ECG Compared to ECG 03/22/2024 06:39:29 No significant changes Electronically Signed On 03-22-2024 18:09:07 VALET by JOSE LARA [email or web address]
[2024-03-22] MEDS: nitroglycerin 0.4 mg sublingual Tablet SUBLINGUAL (10:09)
[2024-03-22 10:31] LABS: Troponin(5th) Baseline 56 ng/L (0-15)
[2024-03-22] MEDS: diphenhydrAMINE 50 mg Capsule PO (10:36)
[2024-03-22] MEDS: aspirin 325 mg Tablet PO (10:36)
[2024-03-22] MEDS: sodium chloride 0.9% 1,000 ML 50 ML IV (10:37)
--- NOTE | 2024-03-22 11:26 | PC.SOCIAL ---
IMM Update pg 2 of IMM Updated and reviewed w/ patient. Copy provided and copy dated, initialed and placed in chart.
--- NOTE | 2024-03-22 11:31 | W.PM.OPSUD ---
Surgery/Procedure H&P Update DATE OF PROCEDURE: March 22, 2024 DATE H&P PERFORMED: 03/20/24 H&P UPDATE INFORMATION: I have reviewed H&P completed within last 30 days, I have examined patient prior to procedure and Changes to prior documentation as noted here CHANGES TO PREVIOUS DOCUMENTATION: Patient was presented with complete heart block. Had permanent pacemaker placement yesterday. He is having on and off chest discomfort symptoms that are typical. Plan for coronary angiogram with possible PCI. PREOP DIAGNOSIS: Symptomatic bradycardia/third-degree heart block/ Chest pain PRIMARY INDICATION FOR PROCEDURE: Symptomatic bradycardia/third-degree heart block/ Chest pain PLANNED PROCEDURE: Operation Date: 03/22/24 Proposed Procedures Left heart cath with possible percutaneous coronary intervention PATIENT REASSESSED PRIOR TO SEDATION, WITH NO CHANGE NOTED: Yes PHYSICAL EXAM: alert, oriented x 3, clear to auscultation bilaterally and regular rate & rhythm AIRWAY EVAL/ANESTHESIA PLAN: normal airway, ASA III, Local Anesthesia, Risks, benefits & alternatives of sedation and/or procedure discussed and Patient agrees to continue as planned ADDITIONAL INFORMATION: Moderate sedation
--- NOTE | 2024-03-22 11:43 | ECG_ITS ---
[facility] Date: 2024-03-22 Pat Name: Sixto Starks Department: Room: [facility]05 Gender: Male Manual Writer: : 1950 Requested By: Myriam Epstein Order Number: [id number] Zaire MD: JOSE LARA Measurements Intervals [place] Rate: 86 P: 80 [place]: 196 QRS: 267 QRSD: 159 T: 82 QT: 433 QTc: 519 Interpretive Statements ELECTRONIC VENTRICULAR PACEMAKER ABNORMAL RHYTHM ECG Compared to ECG 03/22/2024 10:07:01 No significant changes Electronically Signed On 03-22-2024 18:08:47 SINKER PULLER by JOSE LARA [email or web address]
--- NOTE | 2024-03-22 12:12 | P.PN_ITS ---
Documented by User: Myriam Epstein NP 03/22/24 12:14 Subjective 2 Subjective: Patient was undergoing an echo and developed severe chest pain at the center of the chest that radiated to his shoulder. He was given 0.4 mg of sublingual nitro and the pain resolved quickly. EKG was done that showed paced rhythm. I did notify Dr. Bolton. Patient will be taken to the [facility] today for angiogram. He was stable when I left his room and chest pain had resolved. Medications: Reviewed: Yes Vitals/I&O/Wt Last Vital Signs Temp 97.8 F 03/22/24 03:54 Pulse 92 03/22/24 10:40 Resp 17 03/22/24 10:40 BP 144/83 03/22/24 10:40 Pulse Ox 92 03/22/24 10:40 O2 Del Method Room Air 03/20/24 16:49 03/21/24 03/22/24 03/22/24 22:59 06:59 14:59 Intake Total 0 / 1000 310 / 310 Output Total 600 / 1000 500 / 500 Balance -600 / 0 0 / 0 -190 / -190 Weight last 48 hrs Weight 163 lb 2.273 oz Weight 173 lb 1.006 oz Weight 171 lb 15.369 oz Weight 175 lb 0.012 oz Physical Exam 2 Narrative: General: No apparent distress, healthy appearing, well nourished Muskuloskeletal: Full ROM Respiratory: Normal respiratory effort, clear to auscultation bilaterally throughout all lung lewis, no use of accessory muscles Cardio: No JVD, regular rate, regular rhythm, S1 S2 normal, no murmurs, peripheral pulses 2+ throughout Extremities: Full ROM, normal, normal capillary refill, no cyanosis or edema Neuro: Alert and oriented x4, no focal motor deficits Psych: Affect normal, denies suicidal ideation, mental status grossly normal Skin: No rashes or lesions noted, no wounds Data 03/22/24 04:42 03/22/24 04:42 A&P Assessment and plan (1) Chest pain: Patient was developing severe chest pain relieved with 1 dose of sublingual nitro. He will be taken to the [facility] today for further evaluation and angiogram possible PCI if indicated. Qualifiers: Chest pain type: unspecified Qualified Code(s): R07.9 - Chest pain, unspecified (2) Ventricular arrhythmia: (3) Dyslipidemia: (4) Third degree heart block: Attestations 2 Medical Necessity Statement*: as stated previously Coding Level of Care Code 13685 Diagnoses Chest pain, unspecified type R07.9 Chest pain type: unspecified Ventricular arrhythmia I49.9 Dyslipidemia E78.5 Third degree heart block I44.2 Documented by User: Oz Bolton MD 03/22/24 18:04 Subjective 2 Medications: Medication Review Details: Current Medications Acetaminophen (Acetaminophen 325 Mg Tablet) 650 mg PO Q6H PRN PRN Reason: MILD PAIN Last Admin: 03/22/24 06:30 Dose: 650 mg Amlodipine Besylate (Amlodipine 5 Mg Tablet) 5 mg PO DAILY PRN PRN Reason: hypertension Atropine Sulfate (Atropine 0.1 Mg/Ml Syr 10 Ml) 1 mg IVP PRN PRN PRN Reason: HEART RATE-LOW Last Admin: 03/21/24 03:14 Dose: 1 mg Hydromorphone HCl (Hydromorphone 1 Mg/Ml Inj 1 Ml) 0.5 mg IVP Q4H PRN PRN Reason: PAIN Sodium Chloride (Sodium Chloride 0.9%) 1,000 mls @ 50 mls/hr IV .Q20H ONE Stop: 03/23/24 06:17 Last Admin: 03/22/24 10:37 Dose: 50 mls/hr Isosorbide Mononitrate (Isosorbide Mononitrate 20 Mg Tablet) 30 mg PO DAILY JOHANNA Last Admin: 03/22/24 08:46 Dose: 30 mg Morphine Sulfate (Morphine 4 Mg/Ml Sdv 1 Ml) 2 mg IVP Q4H PRN PRN Reason: SEVERE PAIN Last Admin: 03/22/24 07:57 Dose: 2 mg Nitroglycerin (Nitroglycerin 0.4 Mg Sublingual Tablet) 0.4 mg SUBLINGUAL Q5M PRN PRN Reason: CHEST PAIN Last Admin: 03/22/24 10:09 Dose: 0.4 mg Ondansetron HCl (Ondansetron 2 Mg/Ml Sdv 2 Ml) 1 mg IVP Q6H PRN PRN Reason: NAUSEA AND VOMITING Last Admin: 03/21/24 20:16 Dose: 1 mg Ondansetron HCl (Ondansetron 2 Mg/Ml Sdv 2 Ml) 4 mg IVP Q4H PRN PRN Reason: NAUSEA AND VOMITING Last Admin: 03/22/24 08:17 Dose: 4 mg Valacyclovir HCl (Valacyclovir 1,000 Mg Tablet) 1,000 mg PO Q12H JOHANNA Last Admin: 03/22/24 08:43 Dose: 1,000 mg Physical Exam 2 Narrative: GENERAL: The patient is alert and oriented times three. Not in any acute distress. HEENT: No significant pallor, icterus or lymphadenopathy.Oral cavity: There are no mucous membrane lesions. NECK: Trachea appears to be central. No masses noted. No JVD or thyromegaly appreciated. RESPIRATORY: Chest is symmetrical. No intercostals muscle retraction or any accessory muscle activation. The pacemaker insertion site has no hematoma bleeding. BREASTS: Deferred. HEART: The heart sounds are normal. No S3 or S4. No significant murmurs. No pericardial rub ABDOMEN: No vessel pulsations or distention. No tenderness. No organomegaly appreciated. Bowel sounds are normally heard. : Deferred. RECTAL: Deferred. LYMPHATIC: No lymphadenopathy noted in the neck. EXTREMITIES: No edema or cyanosis. No clubbing. MUSCULOSKELETAL: No acute joint deformities or swelling SKIN: There are no significant rashes or ecchymosis NEUROPSYCHIATRIC: The patient is alert and oriented x3. Appears to be in a good mood. No tremors or rigidity noted. Data 03/22/24 04:42 03/22/24 04:42 Other Labs: Laboratory Last Values WBC 8.14 10^3/uL (3.29-11.43) 03/22/24 04:42 RBC 5.15 10^6/uL (3.85-5.65) 03/22/24 04:42 Hgb 14.90 g/dL (11.27-16.99) 03/22/24 04:42 Hct 44.9 % (37-53) 03/22/24 04:42 MCV 87.2 fl (82-101) 03/22/24 04:42 MCH 28.9 pg (27-33) 03/22/24 04:42 MCHC 33.2 g/dL (30-55) 03/22/24 04:42 RDW 13.8 % (12.1-15.1) 03/22/24 04:42 Plt Count 109 10^3/cmm (157-399) L 03/22/24 04:42 MPV 11.9 fL (7.4-10.4) H 03/22/24 04:42 Neut % (Auto) 79.0 % 03/22/24 04:42 Lymph % (Auto) 11.8 % 03/22/24 04:42 [place] % (Auto) 6.1 % 03/22/24 04:42 Eos % (Auto) 2.5 % 03/22/24 04:42 Baso % (Auto) 0.4 % 03/22/24 04:42 Neut # (Auto) 6.43 10^3/uL (1.8-7.7) 03/22/24 04:42 Lymph # (Auto) 1.0 10^3/uL (0.8-4.8) 03/22/24 04:42 [place] # (Auto) 0.5 10^3/uL (0.2-0.9) 03/22/24 04:42 Eos # (Auto) 0.2 10^3/uL (0.0-0.8) 03/22/24 04:42 Baso # (Auto) 0.0 10^3/uL (0.0-0.1) 03/22/24 04:42 Nucleated RBC % (auto) 0 % 03/22/24 04:42 Nucleated RBCs # 0.0 /100WBC 03/22/24 04:42 PT 13.00 SECONDS (12.1-14.9) 03/21/24 04:05 INR 0.95 (0.8-1.2) 03/21/24 04:05 APTT 26.8 SECONDS (23.9-36.7) 03/21/24 04:05 Sodium 141 mmol/L (136-145) 03/22/24 04:42 Potassium 4.5 mmol/L (3.5-5.1) 03/22/24 04:42 Chloride 106 mmol/L (98-107) 03/22/24 04:42 Carbon Dioxide 25 mmol/L (22-29) 03/22/24 04:42 Anion Gap 14.5 (5-19) 03/22/24 04:42 BUN 15 mg/dL (8-23) 03/22/24 04:42 Creatinine 1.1 mg/dL (0.7-1.2) 03/22/24 04:42 GFR Calculation Not Reportable 03/22/24 04:42 Glucose 118 mg/dL (65-115) H 03/22/24 04:42 Calculated Osmolality 294 mOsm/kg (285-295) 03/22/24 04:42 Calcium 8.2 mg/dL (8.5-10.5) L 03/22/24 04:42 Magnesium 2.2 mg/dL (1.7-2.3) 03/21/24 04:05 Total Bilirubin 0.5 mg/dL (0.15-1.2) 03/20/24 12:11 AST 16 U/L (0-40) 03/20/24 12:11 ALT 14 U/L (0-41) 03/20/24 12:11 Alkaline Phosphatase 56 U/L (40-130) 03/20/24 12:11 Troponin T Baseline 56 ng/L (0-15) H 03/22/24 09:54 Troponin T 120 Minute 23.67 ng/L (0-15) H 03/20/24 14:53 Delta Troponin T 0.67 ABS# (0-10) 03/20/24 14:53 Troponin T Hi Sens 6Hr 62.49 ng/L (0-15) H 03/22/24 16:05 Troponin T Hi Sens 6Hr Delta 6.49 ng/L (0-12) 03/22/24 16:05 NT-Pro-B Natriuret Pep 398 pg/mL (0-450) 03/20/24 12:11 Total Protein 6.4 g/dL (6.6-8.7) L 03/20/24 12:11 Albumin 4.3 g/dL (3.5-5.2) 03/20/24 12:11 Globulin 2.1 g/dL (1.3-4.6) 03/20/24 12:11 TSH 2.12 uIU/mL (0.27-4.20) 03/20/24 12:11 Urine Color Yellow (Yellow) 03/20/24 15:44 Urine Appearance Clear (CLEAR) 03/20/24 15:44 Urine pH 5.5 (5-7) 03/20/24 15:44 Ur Specific [place] 1.020 (1.005-1.030) 03/20/24 15:44 Urine Protein Negative (Negative) 03/20/24 15:44 Urine Glucose (UA) Negative (Normal) 03/20/24 15:44 Urine Ketones Negative (Negative) 03/20/24 15:44 Urine Blood Negative (Negative) 03/20/24 15:44 Urine Nitrate Negative (Negative) 03/20/24 15:44 Urine Bilirubin Negative (Negative) 03/20/24 15:44 Urine Urobilinogen 1.0 mg/dL (Negative) 03/20/24 15:44 Ur Leukocyte Esterase Negative (Negative) 03/20/24 15:44 Urine RBC 0-2 /hpf (0-2) 03/20/24 15:44 Urine WBC 0-5 /hpf (0-5) 03/20/24 15:44 Ur Squamous Epith Cells 0-5 /hpf (0-5) 03/20/24 15:44 Amorphous Sediment Not Reportable 03/20/24 15:44 Urine Bacteria None seen /hpf (NONE) 03/20/24 15:44 Hyaline Casts 0-4 /lpf H 03/20/24 15:44 Blood Type O Positive 03/20/24 12:11 Rho(D) Type Rh positive 03/20/24 12:11 Antibody Screen Negative 03/20/24 12:11 A&P Assessment and plan (1) Chest pain: Patient was developing severe chest pain relieved with 1 dose of sublingual nitro. He will be taken to the [facility] today for further evaluation and angiogram possible PCI if indicated. Patient had several episodes of chest pain through the night. The pain is at the pacemaker site and also intermittently in the mid substernal region. He had a limited 2D echocardiogram to evaluate for any pericardial effusion. He did not have any pericardial effusion. Chest x-ray was done which revealed Appropriate placement of the leads. No evidence of pneumothorax. The troponin T from this morning is unremarkable. No evidence of my car injury. The pacemaker function was found to be appropriate Qualifiers: Chest pain type: unspecified Qualified Code(s): R07.9 - Chest pain, unspecified (2) Ventricular arrhythmia: The ventricular arrhythmia seems to be stable. (3) Dyslipidemia: May continue on the current medications. (4) Third degree heart block: Status post permanent pacer implantation. Patient seems to be almost pacer dependent. Plan Patient was taken to the cardiac [facility] after informed consent. Angiogram revealed no significant obstructive coronary disease. The chest pain was thought to be noncardiac. Will continue to monitor him today. If he remains stable, may discharge home tomorrow Attestations 2 Medical Necessity Statement*: Possible discharge home tomorrow. Coding Level of Care Code 61068 Diagnoses Chest pain, unspecified type R07.9 Chest pain type: unspecified Ventricular arrhythmia I49.9 Dyslipidemia E78.5 Third degree heart block I44.2
--- NOTE | 2024-03-22 12:36 | PC.OT ---
OT EVALUATION ORDERS RECEIVED AND EVALUATION ATTEMPTED. PATIENT SCHEDULED FOR [facility] TODAY; WILL HOLD UNTIL TOMORROW.
--- NOTE | 2024-03-22 14:43 | PM.PN ---
Subjective Subjective: He was having left-sided chest pain, as well as nausea and vomiting overnight. Last night with elevated blood pressure received hydralazine. Overnight received nitroglycerin. This morning is having a headache. Vitals/I&O/Wt Last Vital Signs Temp 97.8 F 03/22/24 03:54 Pulse 79 03/22/24 12:45 Resp 24 H 03/22/24 11:15 BP 136/83 03/22/24 12:45 Pulse Ox 93 03/22/24 12:45 O2 Del Method Room Air 03/20/24 16:49 03/21/24 03/22/24 03/22/24 22:59 06:59 14:59 Intake Total 0 / 1000 550 / 550 Output Total 600 / 1000 500 / 500 Balance -600 / 0 0 / 0 50 / 50 Weight last 48 hrs Weight 74 kg Weight 78.5 kg Weight 78 kg Physical Exam Const: COMMON NORMALS: patient oriented x3 and alert GENERAL APPEARANCE: cooperative ORIENTATION/CONSCIOUSNESS: Yes awake HENMT: COMMON NORMALS: oropharynx normal Chest: OTHER: Pacemaker dressing in place with adhesive tape, no signs of adhesive allergy/hives/rash, no signs of blisters, ulcers or other signs of zoster. Resp: COMMON NORMALS: normal respiratory effort and clear to auscultation bilaterally AUSCULTATION: clear to auscultation bilaterally Cardio: COMMON NORMALS: S1 normal heart sound present, S2 normal heart sound present and No murmurs present (Cardio) RATE: bradycardic HEART SOUNDS: S1 normal heart sound present and S2 normal heart sound present GI: COMMON NORMALS: Normal to inspection, nondistended, normoactive bowel sounds present, Soft to palpation and non-tender PALPATION: Yes Soft to palpation Extremity: COMMON NORMALS: no joint enlargement and no pedal edema Neuro: COMMON NORMALS: patient oriented x3 and moves all extremities SENSORIUM/ORIENTATION: Yes alert Skin: COMMON NORMALS: no rashes or lesions noted GENERAL SKIN EXAM: no rashes or lesions noted Data 03/22/24 04:42 03/22/24 04:42 A&P Assessment and plan (1) Third degree heart block: Status post pacemaker placement on 03/21. Overnight with left-sided chest pain, nausea and vomiting. Reviewed vitals, CBC, BMP. Pacemaker has been interrogated. Troponin checked, 56. Overnight with hypotension, received hydralazine. Discussed with bullet assembly press setter operator, consideration for further assessment for coronary disease. Reviewed cardiology note. Noted further assessment with coronary angiogram. Continue telemetry monitoring. Reviewed vitals, CBC, BMP, troponin series, EKG. With chest pain, risk of coronary disease, possible unstable angina underwent coronary angiography, noted without obstructive coronary disease as per discussion with bullet assembly press setter operator. Appreciate update. Continue to monitor on telemetry. Transfer to CSU. Discussed with assistant case manager. (2) Elevated blood pressure reading without diagnosis of hypertension: Last night received hydralazine. Overnight received nitroglycerin. With pacemaker implantation improvement bradycardia blood pressure is doing better. 138/76 currently. Continue to monitor blood pressure. Has been started on amlodipine 5 mg. Continue. Review of records shows diastolic hypertension in the past with borderline systolic readings. Has been on medications such as beta-blockade previously due to nonsustained ventricular tachycardia noted on Holter monitoring. Has not taken any of this or any other similar cardioactive medications for quite some time due to his fatigue and other symptoms experienced from the medications. (3) EDY (obstructive sleep apnea): Not tolerant of CPAP therapy (4) Depression: Along with memory problems. I suspect based on available history that much of this is due to cardiac conduction abnormalities at this time. Plan Slight increase in creatinine that could be due to hypoperfusion from cardiac dysfunction related to AV block versus exertional/volume related after working in the yard yesterday. Reviewed renal function, improved, creatinine down to 1.1 on review. Nausea and vomiting: Gentle IV hydration. Repeat electrolytes. Check magnesium. Zofran as needed. Noted mild thrombocytopenia, platelets further down to 109 today. Repeat CBC. 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 Repeat CBC, reassess thrombocytopenia. May be at risk of thrombocytopenia due to valacyclovir. If platelets continue to worsen would discontinue valacyclovir. Attestations Medical Necessity Statement*: Continue hospitalization for assessment management following pacemaker placement due to third-degree heart block, chest pain. Diagnoses Third degree heart block I44.2 Elevated blood pressure reading without diagnosis of hypertension R03.0 EDY (obstructive sleep apnea) G47.33 Depression F32.A
[2024-03-22 17:23] LABS: Troponin 5 6HR 62.49 ng/L (0-15); Troponin 5 6HR Delta 6.49 ng/L (0-12)
[2024-03-23] VITALS (15 sets, daily range): BP systolic 127–156; BP diastolic 83–115; PULSE 93–105; RESP 2–20; TEMP 36.5; O2SAT 87–93; BMI 21.5
[2024-03-23 05:25] LABS: Basophils % 0.4 %; Eosinophils # 0.4 10^3/uL (0.0-0.8); Eosinophils % 5.2 %; Hematocrit 47.4 % (37-53); Lymphocytes # 1.1 10^3/uL (0.8-4.8); Lymphocytes % 13.7 %; Mean Corpuscular HGB Conc 33.1 g/dL (30-55); Mean Corpuscular Hemoglobin 29.4 pg (27-33); Mean Corpuscular Volume 88.8 fl (82-101); Mean Platelet Volume 12.8 fL (7.4-10.4); Monocytes # 0.6 10^3/uL (0.2-0.9); Monocytes % 7.4 %; Neutrophils # 5.77 10^3/uL (1.8-7.7); Nucleated Red Blood Cells % 0 %; Platelet Count 115 10^3/cmm (157-399); Red Blood Count 5.34 10^6/uL (3.85-5.65); Red Cell Distribution Width 14.2 % (12.1-15.1); White Blood Count 7.89 10^3/uL (3.29-11.43)
[2024-03-23 05:48] LABS: Magnesium 1.9 mg/dL (1.7-2.3)
[2024-03-23 05:54] LABS: Anion Gap 15.3 (5-19); Blood Urea Nitrogen 14 mg/dL (8-23); Carbon Dioxide 25 mmol/L (22-29); Chloride 105 mmol/L (98-107); Creatinine Clr Calc Pharmacy 63.6376; Glucose 111 mg/dL (65-115); Osmolality Calculated 293 mOsm/kg (285-295); Potassium 4.3 mmol/L (3.5-5.1); Sodium 141 mmol/L (136-145)
[2024-03-23] MEDS: morphine 4 mg/mL SDV 1 mL 2 MG IVP (07:08)
[2024-03-23] MEDS: acetaminophen 325 mg Tablet 650 MG PO (07:09)
[2024-03-23] MEDS: isosorbide mononitrate 20 mg Tablet 30 MG PO (07:09)
[2024-03-23] MEDS: valACYclovir 1,000 mg Tablet 1000 MG PO (07:10)
--- NOTE | 2024-03-23 09:27 | P.PN_ITS ---
Subjective 2 Subjective: Patient is complaining of severe headache, possibly from the isosorbide. No fever, chills or cough. No chest pain pacemaker site has no hematoma bleeding. Medications: Medication Review Details: Current Medications Acetaminophen (Acetaminophen 325 Mg Tablet) 650 mg PO Q6H PRN PRN Reason: MILD PAIN Last Admin: 03/23/24 07:09 Dose: 650 mg Amlodipine Besylate (Amlodipine 5 Mg Tablet) 5 mg PO DAILY PRN PRN Reason: hypertension Atropine Sulfate (Atropine 0.1 Mg/Ml Syr 10 Ml) 1 mg IVP PRN PRN PRN Reason: HEART RATE-LOW Last Admin: 03/21/24 03:14 Dose: 1 mg Hydromorphone HCl (Hydromorphone 1 Mg/Ml Inj 1 Ml) 0.5 mg IVP Q4H PRN PRN Reason: PAIN Isosorbide Mononitrate (Isosorbide Mononitrate 20 Mg Tablet) 30 mg PO DAILY [facility] Last Admin: 03/23/24 07:09 Dose: 30 mg Morphine Sulfate (Morphine 4 Mg/Ml Sdv 1 Ml) 2 mg IVP Q4H PRN PRN Reason: SEVERE PAIN Last Admin: 03/23/24 07:08 Dose: 2 mg Nitroglycerin (Nitroglycerin 0.4 Mg Sublingual Tablet) 0.4 mg SUBLINGUAL Q5M PRN PRN Reason: CHEST PAIN Last Admin: 03/22/24 10:09 Dose: 0.4 mg Ondansetron HCl (Ondansetron 2 Mg/Ml Sdv 2 Ml) 1 mg IVP Q6H PRN PRN Reason: NAUSEA AND VOMITING Last Admin: 03/21/24 20:16 Dose: 1 mg Ondansetron HCl (Ondansetron 2 Mg/Ml Sdv 2 Ml) 4 mg IVP Q4H PRN PRN Reason: NAUSEA AND VOMITING Last Admin: 03/22/24 08:17 Dose: 4 mg Valacyclovir HCl (Valacyclovir 1,000 Mg Tablet) 1,000 mg PO Q12H [facility] Last Admin: 03/23/24 07:10 Dose: 1,000 mg Vitals/I&O/Wt Last Vital Signs Temp 97.7 F 03/23/24 07:27 Pulse 93 03/23/24 07:27 Resp 19 H 03/23/24 07:27 BP 156/115 03/23/24 07:27 Pulse Ox 93 03/23/24 07:27 O2 Del Method Room Air 03/23/24 07:27 03/22/24 03/23/24 03/23/24 22:59 06:59 14:59 Intake Total 699.167 / 1249.167 780.833 / 780.833 Output Total 500 / 1000 450 / 450 Balance 199.167 / 249.167 330.833 / 330.833 Weight last 48 hrs Weight 163 lb 2.273 oz Weight 163 lb 2.273 oz Physical Exam 2 Narrative: GENERAL: The patient is alert and oriented times three. Not in any acute distress. HEENT: No significant pallor, icterus or lymphadenopathy.Oral cavity: There are no mucous membrane lesions. NECK: Trachea appears to be central. No masses noted. No JVD or thyromegaly appreciated. RESPIRATORY: Chest is symmetrical. No intercostals muscle retraction or any accessory muscle activation. The pacemaker insertion site has no hematoma bleeding. Breath sounds are heard bilaterally with no rales rhonchi BREASTS: Deferred. HEART: The heart sounds are normal. No S3 or S4. No significant murmurs. No pericardial rub ABDOMEN: No vessel pulsations or distention. No tenderness. No organomegaly appreciated. Bowel sounds are normally heard. : Deferred. RECTAL: Deferred. LYMPHATIC: No lymphadenopathy noted in the neck. EXTREMITIES: Right groin has no hematoma bleeding MUSCULOSKELETAL: No acute joint deformities or swelling SKIN: There are no significant rashes or ecchymosis NEUROPSYCHIATRIC: The patient is alert and oriented x3. Appears to be in a good mood. No tremors or rigidity noted. Data 03/23/24 04:17 03/23/24 04:17 Other Labs: Laboratory Last Values WBC 7.89 10^3/uL (3.29-11.43) 03/23/24 04:17 RBC 5.34 10^6/uL (3.85-5.65) 03/23/24 04:17 Hgb 15.70 g/dL (11.27-16.99) 03/23/24 04:17 Hct 47.4 % (37-53) 03/23/24 04:17 MCV 88.8 fl (82-101) 03/23/24 04:17 MCH 29.4 pg (27-33) 03/23/24 04:17 MCHC 33.1 g/dL (30-55) 03/23/24 04:17 RDW 14.2 % (12.1-15.1) 03/23/24 04:17 Plt Count 115 10^3/cmm (157-399) L 03/23/24 04:17 MPV 12.8 fL (7.4-10.4) H 03/23/24 04:17 Neut % (Auto) 73.0 % 03/23/24 04:17 Lymph % (Auto) 13.7 % 03/23/24 04:17 [place] % (Auto) 7.4 % 03/23/24 04:17 Eos % (Auto) 5.2 % 03/23/24 04:17 Baso % (Auto) 0.4 % 03/23/24 04:17 Neut # (Auto) 5.77 10^3/uL (1.8-7.7) 03/23/24 04:17 Lymph # (Auto) 1.1 10^3/uL (0.8-4.8) 03/23/24 04:17 [place] # (Auto) 0.6 10^3/uL (0.2-0.9) 03/23/24 04:17 Eos # (Auto) 0.4 10^3/uL (0.0-0.8) 03/23/24 04:17 Baso # (Auto) 0.0 10^3/uL (0.0-0.1) 03/23/24 04:17 Nucleated RBC % (auto) 0 % 03/23/24 04:17 Nucleated RBCs # 0.0 /100WBC 03/23/24 04:17 PT 13.00 SECONDS (12.1-14.9) 03/21/24 04:05 INR 0.95 (0.8-1.2) 03/21/24 04:05 APTT 26.8 SECONDS (23.9-36.7) 03/21/24 04:05 Sodium 141 mmol/L (136-145) 03/23/24 04:17 Potassium 4.3 mmol/L (3.5-5.1) 03/23/24 04:17 Chloride 105 mmol/L (98-107) 03/23/24 04:17 Carbon Dioxide 25 mmol/L (22-29) 03/23/24 04:17 Anion Gap 15.3 (5-19) 03/23/24 04:17 BUN 14 mg/dL (8-23) 03/23/24 04:17 Creatinine 1.1 mg/dL (0.7-1.2) 03/23/24 04:17 GFR Calculation Not Reportable 03/23/24 04:17 Glucose 111 mg/dL (65-115) 03/23/24 04:17 Calculated Osmolality 293 mOsm/kg (285-295) 03/23/24 04:17 Calcium 9.0 mg/dL (8.5-10.5) 03/23/24 04:17 Magnesium 1.9 mg/dL (1.7-2.3) 03/23/24 04:17 Total Bilirubin 0.5 mg/dL (0.15-1.2) 03/20/24 12:11 AST 16 U/L (0-40) 03/20/24 12:11 ALT 14 U/L (0-41) 03/20/24 12:11 Alkaline Phosphatase 56 U/L (40-130) 03/20/24 12:11 Troponin T Baseline 56 ng/L (0-15) H 03/22/24 09:54 Troponin T 120 Minute 23.67 ng/L (0-15) H 03/20/24 14:53 Delta Troponin T 0.67 ABS# (0-10) 03/20/24 14:53 Troponin T Hi Sens 6Hr 62.49 ng/L (0-15) H 03/22/24 16:05 Troponin T Hi Sens 6Hr Delta 6.49 ng/L (0-12) 03/22/24 16:05 NT-Pro-B Natriuret Pep 398 pg/mL (0-450) 03/20/24 12:11 Total Protein 6.4 g/dL (6.6-8.7) L 03/20/24 12:11 Albumin 4.3 g/dL (3.5-5.2) 03/20/24 12:11 Globulin 2.1 g/dL (1.3-4.6) 03/20/24 12:11 TSH 2.12 uIU/mL (0.27-4.20) 03/20/24 12:11 Urine Color Yellow (Yellow) 03/20/24 15:44 Urine Appearance Clear (CLEAR) 03/20/24 15:44 Urine pH 5.5 (5-7) 03/20/24 15:44 Ur Specific [place] 1.020 (1.005-1.030) 03/20/24 15:44 Urine Protein Negative (Negative) 03/20/24 15:44 Urine Glucose (UA) Negative (Normal) 03/20/24 15:44 Urine Ketones Negative (Negative) 03/20/24 15:44 Urine Blood Negative (Negative) 03/20/24 15:44 Urine Nitrate Negative (Negative) 03/20/24 15:44 Urine Bilirubin Negative (Negative) 03/20/24 15:44 Urine Urobilinogen 1.0 mg/dL (Negative) 03/20/24 15:44 Ur Leukocyte Esterase Negative (Negative) 03/20/24 15:44 Urine RBC 0-2 /hpf (0-2) 03/20/24 15:44 Urine WBC 0-5 /hpf (0-5) 03/20/24 15:44 Ur Squamous Epith Cells 0-5 /hpf (0-5) 03/20/24 15:44 Amorphous Sediment Not Reportable 03/20/24 15:44 Urine Bacteria None seen /hpf (NONE) 03/20/24 15:44 Hyaline Casts 0-4 /lpf H 03/20/24 15:44 Blood Type O Positive 03/20/24 12:11 Rho(D) Type Rh positive 03/20/24 12:11 Antibody Screen Negative 03/20/24 12:11 A&P Assessment and plan (1) Chest pain: The chest pain is currently resolved. Did not have any significant obstructive coronary disease by angiogram yesterday. Qualifiers: Chest pain type: unspecified Qualified Code(s): R07.9 - Chest pain, unspecified (2) Ventricular arrhythmia: Patient has a history of ventricular arrhythmia. He had an event monitor in 2021 which revealed a PVC burden of 5%. He had occasional nonsustained regular tachycardia as well. Currently he seems to have occasional ventricular ectopics on the monitor. Patient may be started on metoprolol 25 mg p.o. twice daily. (3) Dyslipidemia: Patient is on dietary modification. (4) Elevated blood pressure reading without diagnosis of hypertension: The metoprolol 25 mg p.o. twice daily may help the ventricular arrhythmia and the blood pressure (5) Presence of permanent cardiac pacemaker: Plan If the patient continues remain stable, may be discharged home today from a cardiac standpoint. Discontinue the isosorbide mononitrate Metoprolol 25 mg p.o. twice daily Keflex 5 mg p.o. every 6 hours and multivitamin 1 tablet daily for 2 weeks Attestations 2 Medical Necessity Statement*: Possible discharge home today Coding Level of Care Code 22742 Diagnoses Chest pain, unspecified type R07.9 Chest pain type: unspecified Ventricular arrhythmia I49.9 Dyslipidemia E78.5 Elevated blood pressure reading without diagnosis of hypertension R03.0 Presence of permanent cardiac pacemaker Z95.0
--- NOTE | 2024-03-23 09:52 | PC.NURSE ---
Spoke with Dr Bolton and received telephone orders for amlodipine 2.5mg daily to start now as well as Keflex 500mg PO every 6 hours with first dose now. RBVO
[2024-03-23] MEDS: amlodipine 5 mg Tablet 2.5 MG PO (10:06)
[2024-03-23] MEDS: cephALEXin 500 mg Capsule PO (10:06)
--- NOTE | 2024-03-23 10:18 | PC.NURSE ---
Dressing removed from right groin per Dr Bolton. Patient tolerated well. No s/s of bleeding or hematoma formation observed. Dressing to left chest s/p pacemaker placement remains c,d,i also without s/s of bleeding or hematoma formation observed. Provided instruction for site care and restrictions to include right groin and left chest. Patient verbalized complete understanding stating, I will wear my arm immoblizer in place as long as necessary. New medications administered prior to discharge.
--- NOTE | 2024-03-23 11:06 | PM.DCS ---
Discharge Providers Date of Admission: 03/20/24 12:34 Date of Discharge: March 23, 2024 Attending Provider at Admission: Lisset Mcclendon MD Attending Provider at Discharge: Nabil Braswell Primary Care Provider: Mallory Salazar MD Diagnoses at Discharge Discharge Diagnosis (1) Chest pain: Status: Acute Qualifiers: Chest pain type: unspecified Qualified Code(s): R07.9 - Chest pain, unspecified (2) Ventricular arrhythmia: Status: Chronic Permanent problem details: PVC and NSVT (3) Dyslipidemia: Status: Chronic (4) Elevated blood pressure reading without diagnosis of hypertension: Status: Acute (5) Presence of permanent cardiac pacemaker: Status: Acute Reason for Visit Reason for Visit: irregular EKG at doctor office Hospital Course Hospital Course Pleasant 73-year-old gentleman was admitted for assessment due to tiredness/easy fatigability with low effort, found to have 33 heart block with heart rates in the 30s, during hospitalization her heart rate came down as low as 22. Was monitored in the intensive care unit, did require treatment of severe hypertension suspected worsened reflex secondary to bradycardia. She underwent permanent pacemaker placement on 03/21. Did well during the procedure which was unremarkable. Later on overnight was complaining of left-sided chest pain, nausea, vomiting, left-sided chest tenderness. Pacemaker interrogated and functioning properly. Heart rate up to 80s. Appropriately positioning on chest x-ray. Developed a headache after nitroglycerin. Reassessed by cardiology. With coronary disease risk factors possible unstable angina underwent further assessment with coronary angiography which did not reveal any significant stenosis. Chest pain resolved. Some tenderness present over the left side chest. No erythema, rash, swelling. Blood pressures have improved. Could not tolerate Imdur due to recurrence of headache. Headache showed some improvement with coffee, and later improved with Tylenol and morphine. Other issues noted during hospitalization, mild increase in creatinine on presentation improved, creatinine has been down to 1.1. Additionally noted mild thrombocytopenia, platelets came down as low as 109, today 115. Has been completing a course of valacyclovir for herpes labialis. Please follow-up blood counts at next visit. He is on dietary modification for hyperlipidemia, please revisit with him, he may benefit from consideration of moderate to high intensity statin. Physical Exam Const: COMMON NORMALS: patient oriented x3 and alert GENERAL APPEARANCE: cooperative ORIENTATION/CONSCIOUSNESS: Yes awake HENMT: COMMON NORMALS: oropharynx normal Chest: OTHER: Left side chest without signs of adhesive allergy/hives/rash, no signs of blisters, ulcers or other signs of zoster. Resp: COMMON NORMALS: normal respiratory effort and clear to auscultation bilaterally AUSCULTATION: clear to auscultation bilaterally Cardio: COMMON NORMALS: S1 normal heart sound present, S2 normal heart sound present and No murmurs present (Cardio) RATE: bradycardic HEART SOUNDS: S1 normal heart sound present and S2 normal heart sound present GI: COMMON NORMALS: Normal to inspection, nondistended, normoactive bowel sounds present, Soft to palpation and non-tender PALPATION: Yes Soft to palpation Extremity: COMMON NORMALS: no joint enlargement and no pedal edema Neuro: COMMON NORMALS: patient oriented x3 and moves all extremities SENSORIUM/ORIENTATION: Yes alert Skin: COMMON NORMALS: no rashes or lesions noted GENERAL SKIN EXAM: no rashes or lesions noted Discharge Data Studies Completed and Pending Completed Studies During Hospitalization Category Date Time Status DIRECTOR OF HOME HEALTH SERVICES request for service Routine Exams 03/21/24 11:30 Completed XR chest 1V portable [id number] Routine Exams 03/21/24 19:23 Completed XR chest 1V portable [id number] Routine Exams 03/22/24 07:46 Completed XR chest 1V portable [id number] Stat Exams 03/20/24 12:11 Completed CV. echo complete* [id number] Routine Ultrasound 03/20/24 13:15 Completed US echo limited [CV. echo limited [id number]] Routine Ultrasound 03/22/24 09:34 Completed Pending at discharge Category Date Time Status DIRECTOR OF HOME HEALTH SERVICES request for service Routine Exams 03/22/24 10:17 Taken Basic Metabolic Panel AM LABS Lab 03/24/24 04:00 Ordered Complete Blood Count w/Auto AM LABS Lab 03/24/24 04:00 Ordered Radiology Impressions Chest X-Ray 03/22/24 07:46 IMPRESSION: 1. No acute process identified. Laboratory Results WBC 7.89 10^3/uL (3.29-11.43) 03/23/24 04:17 RBC 5.34 10^6/uL (3.85-5.65) 03/23/24 04:17 Hgb 15.70 g/dL (11.27-16.99) 03/23/24 04:17 Hct 47.4 % (37-53) 03/23/24 04:17 MCV 88.8 fl (82-101) 03/23/24 04:17 MCH 29.4 pg (27-33) 03/23/24 04:17 MCHC 33.1 g/dL (30-55) 03/23/24 04:17 RDW 14.2 % (12.1-15.1) 03/23/24 04:17 Plt Count 115 10^3/cmm (157-399) L 03/23/24 04:17 MPV 12.8 fL (7.4-10.4) H 03/23/24 04:17 Neut % (Auto) 73.0 % 03/23/24 04:17 Lymph % (Auto) 13.7 % 03/23/24 04:17 [place] % (Auto) 7.4 % 03/23/24 04:17 Eos % (Auto) 5.2 % 03/23/24 04:17 Baso % (Auto) 0.4 % 03/23/24 04:17 Neut # (Auto) 5.77 10^3/uL (1.8-7.7) 03/23/24 04:17 Lymph # (Auto) 1.1 10^3/uL (0.8-4.8) 03/23/24 04:17 [place] # (Auto) 0.6 10^3/uL (0.2-0.9) 03/23/24 04:17 Eos # (Auto) 0.4 10^3/uL (0.0-0.8) 03/23/24 04:17 Baso # (Auto) 0.0 10^3/uL (0.0-0.1) 03/23/24 04:17 Nucleated RBC % (auto) 0 % 03/23/24 04:17 Nucleated RBCs # 0.0 /100WBC 03/23/24 04:17 PT 13.00 SECONDS (12.1-14.9) 03/21/24 04:05 INR 0.95 (0.8-1.2) 03/21/24 04:05 APTT 26.8 SECONDS (23.9-36.7) 03/21/24 04:05 Sodium 141 mmol/L (136-145) 03/23/24 04:17 Potassium 4.3 mmol/L (3.5-5.1) 03/23/24 04:17 Chloride 105 mmol/L (98-107) 03/23/24 04:17 Carbon Dioxide 25 mmol/L (22-29) 03/23/24 04:17 Anion Gap 15.3 (5-19) 03/23/24 04:17 BUN 14 mg/dL (8-23) 03/23/24 04:17 Creatinine 1.1 mg/dL (0.7-1.2) 03/23/24 04:17 GFR Calculation Not Reportable 03/23/24 04:17 Glucose 111 mg/dL (65-115) 03/23/24 04:17 Calculated Osmolality 293 mOsm/kg (285-295) 03/23/24 04:17 Calcium 9.0 mg/dL (8.5-10.5) 03/23/24 04:17 Magnesium 1.9 mg/dL (1.7-2.3) 03/23/24 04:17 Total Bilirubin 0.5 mg/dL (0.15-1.2) 03/20/24 12:11 AST 16 U/L (0-40) 03/20/24 12:11 ALT 14 U/L (0-41) 03/20/24 12:11 Alkaline Phosphatase 56 U/L (40-130) 03/20/24 12:11 Troponin T Baseline 56 ng/L (0-15) H 03/22/24 09:54 Troponin T 120 Minute 23.67 ng/L (0-15) H 03/20/24 14:53 Delta Troponin T 0.67 ABS# (0-10) 03/20/24 14:53 Troponin T Hi Sens 6Hr 62.49 ng/L (0-15) H 03/22/24 16:05 Troponin T Hi Sens 6Hr Delta 6.49 ng/L (0-12) 03/22/24 16:05 NT-Pro-B Natriuret Pep 398 pg/mL (0-450) 03/20/24 12:11 Total Protein 6.4 g/dL (6.6-8.7) L 03/20/24 12:11 Albumin 4.3 g/dL (3.5-5.2) 03/20/24 12:11 Globulin 2.1 g/dL (1.3-4.6) 03/20/24 12:11 TSH 2.12 uIU/mL (0.27-4.20) 03/20/24 12:11 Urine Color Yellow (Yellow) 03/20/24 15:44 Urine Appearance Clear (CLEAR) 03/20/24 15:44 Urine pH 5.5 (5-7) 03/20/24 15:44 Ur Specific Embudo 1.020 (1.005-1.030) 03/20/24 15:44 Urine Protein Negative (Negative) 03/20/24 15:44 Urine Glucose (UA) Negative (Normal) 03/20/24 15:44 Urine Ketones Negative (Negative) 03/20/24 15:44 Urine Blood Negative (Negative) 03/20/24 15:44 Urine Nitrate Negative (Negative) 03/20/24 15:44 Urine Bilirubin Negative (Negative) 03/20/24 15:44 Urine Urobilinogen 1.0 mg/dL (Negative) 03/20/24 15:44 Ur Leukocyte Esterase Negative (Negative) 03/20/24 15:44 Urine RBC 0-2 /hpf (0-2) 03/20/24 15:44 Urine WBC 0-5 /hpf (0-5) 03/20/24 15:44 Ur Squamous Epith Cells 0-5 /hpf (0-5) 03/20/24 15:44 Amorphous Sediment Not Reportable 03/20/24 15:44 Urine Bacteria None seen /hpf (NONE) 03/20/24 15:44 Hyaline Casts 0-4 /lpf H 03/20/24 15:44 Blood Type O Positive 03/20/24 12:11 Rho(D) Type Rh positive 03/20/24 12:11 Antibody Screen Negative 03/20/24 12:11 Vitals Last Vital Signs Temp 97.7 F 03/23/24 07:27 Pulse 98 03/23/24 10:47 Resp 16 03/23/24 10:47 BP 135/94 03/23/24 10:47 Pulse Ox 93 03/23/24 10:47 O2 Del Method Room Air 03/23/24 07:27 Discharge Plan Discharge Patient Disposition: Home Condition: Stable Prescriptions: New amlodipine 5 mg Tablet 5 mg PO DAILY PRN (Reason: hypertension) Qty: 90 0RF Rx Instructions: Blood pressure >130 systolic or 90 diastolic cephalexin 500 mg Capsule 500 mg PO QID 5 Days Qty: 20 0RF Continued (DME) Custom Accomadative orthotic with deep heel cup See Rx Instructions .ROUTE .MEDSUPPLY Qty: 1 0RF Rx Instructions: As directed valacyclovir [Valtrex] 1 gram tablet 1,000 mg PO Q12H 5 Days Qty: 10 0RF multivitamin [One Daily Multivitamin] Tablet 1 tab PO DAILY Discharge Orders: Discharge Order (Routine); Ordered 03/23/24 Ordered By: Nabil Braswell Referrals: Myriam Epstein NP [Nurse Practitioner] - 03/29/24 3:00 pm Mallory Salazar MD [Primary Care Provider] - 04/04/24 11:20 am Discharge Diet: Cardiac Patient Instructions: Depression, Amlodipine (By mouth), Chest Pain (DC), Pacemaker (DC), Low Fat Diet (DC), Opioid Safety, Post Angiogram Home Care Instructions, Post Pacemaker - Hoang Activity Restrictions/Additional Instructions: Follow-up with cardiology office for pacemaker check. Have a primary doctor follow-up your kidney function. Continue to monitor blood pressure twice daily, record values to make your appointment. You are given prescription for blood pressure medication amlodipine, which you can take if your blood pressure is above 130 systolic (top number) or 90 diastolic (bottom number). Discuss and consider with your primary provider starting a statin (cholesterol medication). Seek medical attention in case of any worsening or new concerning symptoms. Discharge Attestations Time Spent in Discharge Care*: greater than 30 min Quality Metrics Clinical Quality Measures [ No reported AMI, CVA or VTE this stay] Coding Level of Care Code 26409 Total time (in minutes) for Discharge: 40 Diagnoses Chest pain, unspecified type R07.9 Chest pain type: unspecified Ventricular arrhythmia I49.9 Dyslipidemia E78.5 Elevated blood pressure reading without diagnosis of hypertension R03.0 Presence of permanent cardiac pacemaker Z95.0
--- NOTE | 2024-03-23 11:07 | PC.NURSE ---
patient discharged to home. Instruction provided regarding follow up information and new medications. New Rx transmitted to [facility]. Patient and spouse both verbalized complete understanding. Also provided site care instructions for right groin and pacemaker. Patient again verbalized understanding. Patient's IV's removed intact. Telemetry removed. Patient insisted on ambulating with his at discharge to private vehicle. Patient denies pain or needs. No distress observed.
== END 2024-03-23 11:09 | disposition home or self-care (01) | DRG 243 ==
LOC: ER 12:16 → ICU 12:35 → CSU 03-22 21:34
PROVIDERS: Internal Medicine; Internal Medicine Cardiovascular Disease; Nurse Practitioner Family; Admitting Provider Hospitalist; Emergency Provider Family Medicine; PCP Family Medicine; Visit Provider Internal Medicine
PROC: 0JH606Z Insertion of Pacemaker, Dual Chamber into Chest Subcutaneous Tissue and Fascia, Open Approach (ICD-10-PCS; principal; 2024-03-21 12:00)
PROC: 4A023N7 Measurement of Cardiac Sampling and Pressure, Left Heart, Percutaneous Approach (ICD-10-PCS; principal; 2024-03-22 11:00)
DX: I44.2 Atrioventricular block, complete (principal); I25.110 Atherosclerotic heart disease of native coronary artery with unstable angina pectoris; I49.8 Other specified cardiac arrhythmias; I10 Essential (primary) hypertension; D69.6 Thrombocytopenia, unspecified; B00.1 Herpesviral vesicular dermatitis; E78.5 Hyperlipidemia, unspecified; G47.33 Obstructive sleep apnea (adult) (pediatric); F32.A Depression, unspecified; R41.3 Other amnesia; R51.9 Headache, unspecified; Z91.199 Patient's noncompliance with other medical treatment and regimen due to unspecified reason; Z85.820 Personal history of malignant melanoma of skin
CPT/HCPCS: 33208; 36415; 71045; 80048; 80053; 81001; 83735; 83880; 84443; 84484; 85025; 85610; 85730; 86850; 86900; 93005; 93306; 93308; 93458; 96376; 97165; 99152; 99153; 99285; A4216; C1760; C1769; C1779; C1786; C1887; C1894; C1898; G0269; J0360; J0461; J0690; J1644; J2250; J2270; J2405; J3010; J3370; J3490; J7030; J7040; J7050; Q0163; Q9967

== ENCOUNTER 2024-03-25 03:32 | Inpatient (IN) | payer MEDICARE, OTHER, SELFPAY ==
[2024-03-25] VITALS (85 sets, daily range): BP systolic 105–183; BP diastolic 59–103; PULSE 60–102; RESP 8–26; TEMP 36.6–36.9; O2SAT 89–100; BMI 25.0; BMI 22.4
--- NOTE | 2024-03-25 03:34 | XRR_ITS ---
PROCEDURE INFORMATION: Exam: XR Chest Exam date and time: 03/25/2024 3:44 AM Age: 73 years old Clinical indication: Chest pressure; Prior surgery; Surgery date: 3-7 days post-operative; Surgery type: Pacermaker placed 03/21/2024; Patient HX: C/O central chest pain; Additional info: Cp TECHNIQUE: Imaging protocol: Radiologic exam of the chest. Views: 1 view. COMPARISON: CR XR chest 1V portable [id number] 03/22/2024 7:59 AM FINDINGS: Tubes, catheters and devices: Dual lead pacemaker is seen on the left. Lungs: There is atelectasis involving the left lung base. Lungs are otherwise clear. Pleural spaces: There is a moderate-sized left pneumothorax. Heart/Mediastinum: The heart is enlarged. Bones/joints: Unremarkable. XR/XR chest 1V portable [id number] IMPRESSION: 1. Moderate-sized pneumothorax on the left. 2. Cardiomegaly.
--- NOTE | 2024-03-25 03:37 | ECG_ITS ---
[facility] 2024-[facility]25 Pat Name: Sixto Starks Department: Room: Gender: Male It Integration Architect: : [id number] Requested By: Mann Gorman Order Number: [id number] MD: Gelacio Espinal M.D. Measurements Intervals [place] Rate: 92 P: 87 OK: 178 QRS: 259 QRSD: 163 T: 82 QT: 406 QTc: 503 Interpretive Statements ELECTRONIC VENTRICULAR PACEMAKER Compared to ECG 03/22/2024 11:18:40 No significant changes Electronically Signed On 03-25-2024 10:18:20 LEATHER BELT MAKER by Gelacio Espinal M.D. [email or web address]
--- NOTE | 2024-03-25 03:37 | W.ED.CHESTPA ---
HPI - Chest Pain General: Chief Complaint: Chest Pain Stated Complaint: CP Time Seen by Provider: 03/25/24 03:34 Source: patient Mode of arrival: ambulatory Limitations: no limitations History of Present Illness: 73-year-old male presents here with chest pain. Patient been recently admitted and had a third-degree heart block and had a pacemaker placed he also had a heart cath that was negative patient discharged 2 days ago. He states he has been having some sharp pains in the center of his chest he states he got much worse tonight. States it is worse with palpation rates an 8 out of 10 has had some slight shortness of breath. Associated symptoms: Deny abdominal pain, dyspnea, fever(s), nausea or vomiting Related Data Home Medications Medication Instructions Recorded Confirmed multivitamin (One Daily 1 tab PO DAILY 01/06/23 03/20/24 Multivitamin tablet) Previous Rx's Medication Instructions Recorded Custom Accomadative orthotic with #1 ea 12/14/19 deep heel cup valacyclovir 1 gram tablet 1,000 mg PO Q12H 5 days #10 tabs 03/17/24 (Valtrex) amlodipine 5 mg tablet 5 mg PO DAILY PRN hypertension #90 03/23/24 tabs cephalexin 500 mg capsule 500 mg PO QID 5 days #20 caps 03/23/24 Allergies Allergy/AdvReac Type Severity Reaction Status Date / Time magnesium oxide Allergy Severe ADR-Diarrhe Verified 03/17/24 07:52 a terbinafine Allergy loss of Verified 03/17/24 07:52 taste Review of Systems Const: Denies: fever(s), chills, body aches or change in appetite ENMT: Denies: throat pain or dental pain Card: Reports: chest pain Resp: Denies: dyspnea GI: Denies: abdominal pain, nausea, vomiting or diarrhea Musc: Denies: neck pain or back pain Skin/Breast: Denies: rash Neuro: Denies: headache(s) PFSH ED PFSH: Medical History History of Holter monitoring 10/2021 NSR with PVCs and occasional NSVT History of sleep study 08/2022 History of squamous cell carcinoma of skin History of basal cell carcinoma of skin EDY (obstructive sleep apnea) not compliant with CPAP therapy Testosterone deficiency B12 deficiency Chronic pruritus Depression Kidney stones Diverticulosis Carotid artery occlusion <50% stenosis bilaterally, moderate atheromatous plaque bilaterally Ventricular arrhythmia PVC and NSVT Abnormal EKG incomplete rbbb Dyslipidemia History of malignant melanoma Surgical History History of bilateral cataract extraction History of cardiac catheterization 10/2021 - mild diffuse coronary artery disease. LVEDP of 3mmHg History of Mohs micrographic surgery for skin cancer History of submandibular gland removal right, benign History of rotator cuff surgery right Family History Mother , 88 Dementia Grandmother Stroke Father , 92, worked in the garden the day he No problems noted. Other Malignant melanoma Denies family history of Diabetes CAD (coronary artery disease) Clotting disorder Chronic kidney disease (CKD) Suicide Anesthesia complication Bleeding disorder Lung disease Cancer Social History Smoking and tobacco/nicotine status: former use of tobacco/nicotine Quit status (tobacco/nicotine): has quit using Year quit tobacco: 1999 Former quit date comment: 20 pack year history Alcohol intake: current Alcohol intake frequency: holidays/special occasions only Substance/Drug Use: never Household members: spouse Marital status: Number of children: 0 service: Yes status: Discharged branch: [employer] Current occupational status: retired 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 Special vesta needs: No Agree to transfusion: Yes Physical Exam Const: COMMON NORMALS: no acute distress, patient oriented x3 and healthy appearing HENMT: COMMON NORMALS: normocephalic and atraumatic HEAD & SCALP: normocephalic and atraumatic Neck/C-Spine: COMMON NORMALS: full ROM and supple Chest: COMMONS NORMALS: normal inspection of the chest OTHER: point tender in center of chest Resp: COMMON NORMALS: normal respiratory effort, No retractions, No use of accessory muscles and clear to auscultation bilaterally AUSCULTATION: clear to auscultation bilaterally Cardio: COMMON NORMALS: regular rate, regular rhythm and No murmurs present (Cardio) RATE: regular rate RHYTHM: regular rhythm GI: COMMON NORMALS: Normal to inspection, nondistended, normoactive bowel sounds present, Soft to palpation, non-tender and no masses PALPATION: Yes Soft to palpation Extremity: COMMON NORMALS: normal to inspection and full ROM Neuro: COMMON NORMALS: patient oriented x3, moves all extremities and no focal motor deficits Psych: COMMON NORMALS: mental status grossly normal, Normal thought process present and cooperative THOUGHT PROCESS: Normal thought process present Skin: COMMON NORMALS: no rashes or lesions noted and no wounds GENERAL SKIN EXAM: no rashes or lesions noted Procedures Chest Tube Chest Tube 1: Chest Tube Location: left, mid axillary line and fifth interspace Size of Tube (cm): 22 Chest Tube Prep: Yes betadine prep and sterile drapes applied Local Anesthetic: lidocaine 1% Amount of anesthesia used (mL): 5 Incision Made With: #11 blade Post Procedure: sutured to skin and sterile dressing applied Tube Drainage: none Post Procedure CXR?: Yes Patient Tolerated Procedure: Yes Procedural Sedation Indication: other (chest tube) ASA Class: I Time of Last PO Intake: 18:00 Preparation: vice president of brand management applied, pulse oximeter and supplemental O2 applied IV Propofol dose (mg): 100 Patient Tolerated Procedure: well Complications: none Course Vital Signs: Vital signs: Vital Signs Temperature 98.3 F 03/25/24 03:32 Pulse Rate 94 03/25/24 03:32 Respiratory Rate 24 H 03/25/24 03:32 Blood Pressure 183/101 03/25/24 03:32 Pulse Oximetry 92 03/25/24 03:32 Oxygen Delivery Me thod Room Air 03/25/24 03:32 MDM - Chest Pain Medical Decision Making Patient presents had pneumothorax did place chest tube he is improved I did speak to surgeon on-call along with hospitalist will admit to ICU Medical Records I reviewed the patient's medical records. Lab Data I reviewed the patient's lab results. 03/25/24 03:47 03/25/24 03:47 Radiology Impressions Chest X-Ray 03/25/24 04:10 IMPRESSION: 1. Significant interval reduction in size of left pneumothorax status post thoracotomy tube placement. 2. Left basilar atelectasis. 3. Cardiomegaly. Laboratory Results WBC 7.30 10^3/uL (3.29-11.43) 03/25/24 03:47 RBC 5.36 10^6/uL (3.85-5.65) 03/25/24 03:47 Hgb 15.60 g/dL (11.27-16.99) 03/25/24 03:47 Hct 47.2 % (37-53) 03/25/24 03:47 MCV 88.1 fl (82-101) 03/25/24 03:47 MCH 29.1 pg (27-33) 03/25/24 03:47 MCHC 33.1 g/dL (30-55) 03/25/24 03:47 RDW 13.9 % (12.1-15.1) 03/25/24 03:47 Plt Count 126 10^3/cmm (157-399) L 03/25/24 03:47 MPV 12.5 fL (7.4-10.4) H 03/25/24 03:47 Neut % (Auto) 61.1 % 03/25/24 03:47 Lymph % (Auto) 20.8 % 03/25/24 03:47 [place] % (Auto) 8.9 % 03/25/24 03:47 Eos % (Auto) 8.1 % 03/25/24 03:47 Baso % (Auto) 0.8 % 03/25/24 03:47 Neut # (Auto) 4.46 10^3/uL (1.8-7.7) 03/25/24 03:47 Lymph # (Auto) 1.5 10^3/uL (0.8-4.8) 03/25/24 03:47 [place] # (Auto) 0.7 10^3/uL (0.2-0.9) 03/25/24 03:47 Eos # (Auto) 0.6 10^3/uL (0.0-0.8) 03/25/24 03:47 Baso # (Auto) 0.1 10^3/uL (0.0-0.1) 03/25/24 03:47 Nucleated RBC % (auto) 0 % 03/25/24 03:47 Nucleated RBCs # 0.0 /100WBC 03/25/24 03:47 PT 11.90 SECONDS (12.1-14.9) L 03/25/24 03:47 INR 0.86 (0.8-1.2) 03/25/24 03:47 Sodium 140 mmol/L (136-145) 03/25/24 03:47 Potassium 3.9 mmol/L (3.5-5.1) 03/25/24 03:47 Chloride 100 mmol/L (98-107) 03/25/24 03:47 Carbon Dioxide 29 mmol/L (22-29) 03/25/24 03:47 Anion Gap 14.9 (5-19) 03/25/24 03:47 BUN 18 mg/dL (8-23) 03/25/24 03:47 Creatinine 1.3 mg/dL (0.7-1.2) H 03/25/24 03:47 GFR Calculation Not Reportable 03/25/24 03:47 Glucose 117 mg/dL (65-115) H 03/25/24 03:47 Calculated Osmolality 293 mOsm/kg (285-295) 03/25/24 03:47 Calcium 9.7 mg/dL (8.5-10.5) 03/25/24 03:47 Total Bilirubin 0.5 mg/dL (0.15-1.2) 03/25/24 03:47 AST 23 U/L (0-40) 03/25/24 03:47 ALT 13 U/L (0-41) 03/25/24 03:47 Alkaline Phosphatase 67 U/L (40-130) 03/25/24 03:47 Troponin T Baseline 39 ng/L (0-15) H 03/25/24 03:47 Total Protein 6.5 g/dL (6.6-8.7) L 03/25/24 03:47 Albumin 4.1 g/dL (3.5-5.2) 03/25/24 03:47 Globulin 2.4 g/dL (1.3-4.6) 03/25/24 03:47 All radiology interpretation(s) finalized by discharge EKG Data EKG 1: I personally reviewed and interpreted this EKG as follows: EKG interpretation date: 03/25/24 EKG interpretation time: 03:37 Interpretation: paced hr [address] elevation qrs 163 qtc 456 Discharge Plan Discharge Condition: Stable Prescriptions: No Action (DME) Custom Accomadative orthotic with deep heel cup See Rx Instructions .ROUTE .MEDSUPPLY Qty: 1 0RF Rx Instructions: As directed valacyclovir [Valtrex] 1 gram tablet 1,000 mg PO Q12H 5 Days Qty: 10 0RF multivitamin [One Daily Multivitamin] Tablet 1 tab PO DAILY amlodipine 5 mg Tablet 5 mg PO DAILY PRN (Reason: hypertension) Qty: 90 0RF Rx Instructions: Blood pressure >130 systolic or 90 diastolic cephalexin 500 mg Capsule 500 mg PO QID 5 Days Qty: 20 0RF Referrals: Mallory Salazar MD [Primary Care Provider] - Coding Level of Care Code ED Bakery Machine Mechanic Supervisor for Javier Almanza
[2024-03-25] MEDS: ondansetron 2 mg/ML SDV 2 mL 4 MG IVP ×2 (03:48→09:21)
[2024-03-25] MEDS: HYDROmorphone 1 mg/mL INJ 1 mL IVP (03:48)
--- NOTE | 2024-03-25 04:00 | PC.NURSE ---
Pt moved from room 13 to room 11 and consented for chest tube placement with moderate sedation.
--- NOTE | 2024-03-25 04:10 | XRR_ITS ---
PROCEDURE INFORMATION: Exam: XR Chest Exam date and time: 03/25/2024 4:10 AM Age: 73 years old Clinical indication: Device placement; Prior surgery; Surgery date: 3-7 days post-operative; Surgery type: Pacer on 03/21/2024; Patient HX: Check S/P left chest tube placement TECHNIQUE: Imaging protocol: Radiologic exam of the chest. Views: 1 view. COMPARISON: CR (CHEST, ) 03/25/2024 3:44 AM FINDINGS: Tubes, catheters and devices: Dual lead pacemaker is seen on the left. Thoracotomy tube is noted on the left. Lungs: There is left basilar atelectasis. The lungs are otherwise clear. Pleural spaces: There is a small residual left apical and probable left costophrenic angle pneumothorax. However, the pneumothorax has decreased significantly when compared to prior exam. Heart/Mediastinum: The heart is enlarged. Bones/joints: Unremarkable. XR/XR chest 1V portable [id number] IMPRESSION: 1. Significant interval reduction in size of left pneumothorax status post thoracotomy tube placement. 2. Left basilar atelectasis. 3. Cardiomegaly.
[2024-03-25 04:13] LABS: Troponin(5th) Baseline 39 ng/L (0-15)
[2024-03-25 04:16] LABS: Alanine Aminotransferase 13 U/L (0-41); Albumin Level 4.1 g/dL (3.5-5.2); Alkaline Phosphatase 67 U/L (40-130); Anion Gap 14.9 (5-19); Aspartate Amino Transferase 23 U/L (0-40); Blood Urea Nitrogen 18 mg/dL (8-23); Calcium 9.7 mg/dL (8.5-10.5); Carbon Dioxide 29 mmol/L (22-29); Chloride 100 mmol/L (98-107); Creatinine Clr Calc Pharmacy 57.2314; Globulin 2.4 g/dL (1.3-4.6); Glucose 117 mg/dL (65-115); Osmolality Calculated 293 mOsm/kg (285-295); Potassium 3.9 mmol/L (3.5-5.1); Sodium 140 mmol/L (136-145); Total Bilirubin 0.5 mg/dL (0.15-1.2); Total Protein 6.5 g/dL (6.6-8.7)
[2024-03-25] MEDS: propofol 10 mg/mL SDV 20 mL 100 MG IVP (04:16)
[2024-03-25 04:21] LABS: Basophils # 0.1 10^3/uL (0.0-0.1); Basophils % 0.8 %; Eosinophils # 0.6 10^3/uL (0.0-0.8); Eosinophils % 8.1 %; Hematocrit 47.2 % (37-53); Lymphocytes # 1.5 10^3/uL (0.8-4.8); Lymphocytes % 20.8 %; Mean Corpuscular HGB Conc 33.1 g/dL (30-55); Mean Corpuscular Hemoglobin 29.1 pg (27-33); Mean Corpuscular Volume 88.1 fl (82-101); Mean Platelet Volume 12.5 fL (7.4-10.4); Monocytes # 0.7 10^3/uL (0.2-0.9); Monocytes % 8.9 %; Neutrophils # 4.46 10^3/uL (1.8-7.7); Neutrophils % 61.1 %; Nucleated Red Blood Cells % 0 %; Platelet Count 126 10^3/cmm (157-399); Red Blood Count 5.36 10^6/uL (3.85-5.65); Red Cell Distribution Width 13.9 % (12.1-15.1)
--- NOTE | 2024-03-25 04:30 | PC.NURSE ---
22F chest tube was placed on left side with moderate sedation. Pt was given 100mg propofol. Pt tolerated procedure well. Tube was secured by MD. Pt reports feeling much better.
[2024-03-25 04:41] LABS: INR 0.86 (0.8-1.2)
--- NOTE | 2024-03-25 04:42 | P.HP_ITS ---
Providers/Chief Complaint 2 Primary Care Provider: Mallory Salazar MD Chief Complaint: CP History of Present Illness Sixto Starks is a 73 year old male with past medical history significant for sleep apnea, depression, third-degree heart block status post recent pacemaker implantation, dyslipidemia, and multiple other comorbidities who presents to the emergency department with substernal chest pain. He describes the pain as sharp. Located in the center of his chest. Reports some palpitations at times. Rates it currently 8 out of 10. Endorses slight shortness of breath. Denies fevers or chills. In the emergency department, he was found to have left-sided pneumothorax. Chest tube was placed with significant improvement in pneumothorax. General surgery consulted for chest tube management. Review of Systems 2 Narrative: A complete review of systems was obtained and is negative except as stated in HPI. Medications/Allergies Home Medications Medication Instructions Recorded Confirmed Last Taken Type Custom Accomadative orthotic with #1 ea 12/14/19 03/20/24 Unknown Rx deep heel cup multivitamin (One Daily 1 tab PO DAILY 01/06/23 03/20/24 Unknown History Multivitamin tablet) valacyclovir 1 gram tablet 1,000 mg PO Q12H 5 days #10 tabs 03/17/24 03/20/24 Unknown Rx (Valtrex) amlodipine 5 mg tablet 5 mg PO DAILY PRN hypertension #90 03/23/24 Unknown Rx tabs cephalexin 500 mg capsule 500 mg PO QID 5 days #20 caps 03/23/24 Unknown Rx Allergies Allergy/AdvReac Type Severity Reaction Status Date / Time magnesium oxide Allergy Severe ADR-Diarrhe Verified 03/17/24 07:52 a terbinafine Allergy loss of Verified 03/17/24 07:52 taste PFSH Acute 2 PFSH: Medical History History of Holter monitoring 10/2021 NSR with PVCs and occasional NSVT History of sleep study 08/2022 History of squamous cell carcinoma of skin History of basal cell carcinoma of skin EDY (obstructive sleep apnea) not compliant with CPAP therapy Testosterone deficiency B12 deficiency Chronic pruritus Depression Kidney stones Diverticulosis Carotid artery occlusion <50% stenosis bilaterally, moderate atheromatous plaque bilaterally Ventricular arrhythmia PVC and NSVT Abnormal EKG incomplete rbbb Dyslipidemia History of malignant melanoma Surgical History History of bilateral cataract extraction History of cardiac catheterization 10/2021 - mild diffuse coronary artery disease. LVEDP of 3mmHg History of Mohs micrographic surgery for skin cancer History of submandibular gland removal right, benign History of rotator cuff surgery right Family History Mother , 88 Dementia Grandmother Stroke Father , 92, worked in the garden the day he No problems noted. Other Malignant melanoma Denies family history of Diabetes CAD (coronary artery disease) Clotting disorder Chronic kidney disease (CKD) Suicide Anesthesia complication Bleeding disorder Lung disease Cancer Social History Smoking and tobacco/nicotine status: former use of tobacco/nicotine Quit status (tobacco/nicotine): has quit using Year quit tobacco: 1999 Former quit date comment: 20 pack year history Alcohol intake: current Alcohol intake frequency: holidays/special occasions only Substance/Drug Use: never Household members: spouse Marital status: Number of children: 0 service: Yes status: Discharged branch: [employer] Current occupational status: retired 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 Appears uncomfortable. Conversational. Head: Normocephalic. Atraumatic. EOM intact. Neck: No JVD. Cardiovascular: RRR. No gallops. No murmurs. Recent pacemaker site is covered with bandage. Lungs: Slightly tachypneic. Left-sided chest tube. Slight conversational dyspnea. Skin: No jaundice. No rashes. Abdomen: Normal bowel sounds, abdomen soft and nontender. Genito Urinary: Genital exam not performed since complaints not related. Rectal: Rectal exam not performed since no symptoms indicated blood loss. Extremities: No cyanosis or clubbing. Musculoskeletal: No swollen or erythematous joints. Neurological: Moves all 4 extremities. No myoclonus. Data 03/25/24 03:47 03/25/24 03:47 A&P Assessment and plan (1) Pneumothorax: Left-sided pneumothorax Recent pacemaker implantation suspicious for possible cause versus primary spontaneous Status post chest tube placement by ED provider on 03/25 General Surgery's been consulted for management Daily chest x-ray Analgesics as needed (2) Chest pain: Chest pain likely associated with pneumothorax Coronary angiogram noted Analgesics as needed (3) Presence of permanent cardiac pacemaker: Pacemaker recently implanted by Dr. Bolton for third-degree heart block Telemetry monitoring Consult cardiology if needed (4) Ventricular arrhythmia: Telemetry monitoring (5) EDY (obstructive sleep apnea): Not compliant with CPAP Plan DVT prophylaxis: Lovenox Attestations 2 Medical Necessity Statement*: Patient presents with chest pain, found to have pneumothorax in the setting of recent pacemaker implantation status post chest tube placement with expected hospitalization across 2 midnights for chest tube management with goal of eventual removal. Coding Level of Care Code Acute Code for [facility] Fwd Diagnoses Pneumothorax J93.9 Chest pain R07.9 Presence of permanent cardiac pacemaker Z95.0 Ventricular arrhythmia I49.9 EDY (obstructive sleep apnea) G47.33
[2024-03-25] MEDS: HYDROmorphone 1 mg/mL INJ 1 mL 0.4 MG IVP (05:57)
[2024-03-25] MEDS: valACYclovir 1,000 mg Tablet 1000 MG PO ×2 (06:09→17:44)
[2024-03-25] MEDS: enoxaparin 40 mg/0.4 mL Syringe SUBCUT (06:09)
[2024-03-25 06:35] LABS: Troponin 5 2HR 35.95 ng/L (0-15)
[2024-03-25 06:37] LABS: Troponin 5 2HR Delta -3.05 ABS# (0-10)
[2024-03-25] MEDS: oxyCODONE-APAP 5-325 mg Tablet 1 TAB PO (07:33)
--- NOTE | 2024-03-25 08:08 | PC.PHAR ---
Addendum entered by Chetna Flowers 03/25/24 09:33: Pt fills at [facility], not [facility]. [facility] so I can't confirm the Lisinopril and did not add to his med list. Original Note: Pt states he takes 3 blood pressure medications including Lisinopril. Profile shows only Amlodipine 5mg. Will follow up with [facility] when they open at 9am.
--- NOTE | 2024-03-25 09:44 | ECG_ITS ---
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 Measurements Intervals [place] Rate: 77 P: 75 NE: 193 QRS: -88 QRSD: 164 T: 90 QT: 458 QTc: 519 Interpretive Statements ELECTRONIC VENTRICULAR PACEMAKER Compared to ECG 03/25/2024 03:37:46 No significant changes Electronically Signed On 03-25-2024 10:31:51 STOCK REPLENISHER by Gelacio Espinal M.D. [email or web address]
[2024-03-25 10:28] LABS: Troponin 5 6HR 32.63 ng/L (0-15); Troponin 5 6HR Delta -6.37 ng/L (0-12)
[2024-03-25] MEDS: multivitamin therapeutic Tablet 1 TAB PO (10:44)
[2024-03-25] MEDS: cephALEXin 500 mg Capsule PO ×4 (10:44→20:08)
--- NOTE | 2024-03-25 13:04 | P.PN_ITS ---
Subjective 2 Subjective: No acute events noted so far. Complains of constant chest pain but no nausea, vomiting, shortness of breath or dizziness or palpitations. Medications: Reviewed: Yes Vitals/I&O/Wt Last Vital Signs Temp 97.9 F 03/25/24 09:15 Pulse 77 03/25/24 09:15 Resp 13 03/25/24 09:15 BP 156/88 03/25/24 09:15 Pulse Ox 93 03/25/24 09:15 O2 Del Method Room Air 03/25/24 09:15 O2 Flow Rate 2 03/25/24 04:30 03/24/24 03/25/24 03/25/24 22:59 06:59 14:59 Intake Total 100 / 100 Output Total 600 / 600 Balance -500 / -500 Weight last 48 hrs Weight 77 kg Weight 86.183 kg Physical Exam 2 Const: OTHER: General: Patient is awake. Appears uncomfortable. Conversational. Head: Normocephalic. Atraumatic. EOM intact. Neck: No JVD. Cardiovascular: RRR. No gallops. No murmurs. Recent pacemaker site is covered with bandage. Lungs: Slightly tachypneic. Left-sided chest tube. Slight conversational dyspnea. Skin: No jaundice. No rashes. Abdomen: Normal bowel sounds, abdomen soft and nontender. Genito Urinary: Genital exam not performed since complaints not related. Rectal: Rectal exam not performed since no symptoms indicated blood loss. Extremities: No cyanosis or clubbing. Musculoskeletal: No swollen or erythematous joints. Neurological: Moves all 4 extremities. No myoclonus. Data 03/25/24 03:47 03/25/24 03:47 A&P Assessment and plan (1) Pneumothorax: Left-sided pneumothorax Recent pacemaker implantation suspicious for possible cause versus primary spontaneous Status post chest tube placement by ED provider on 03/25 General Surgery's been consulted for management Daily chest x-ray Analgesics as needed (2) Chest pain: Chest pain likely associated with pneumothorax Coronary angiogram noted Analgesics as needed (3) Presence of permanent cardiac pacemaker: Pacemaker recently implanted by Dr. Bolton for third-degree heart block Telemetry monitoring Consult cardiology if needed (4) Ventricular arrhythmia: Telemetry monitoring (5) EDY (obstructive sleep apnea): Not compliant with CPAP Plan DVT prophylaxis: Lovenox 03/25/24 Chest x-ray improved as compared to admission s/p thoracotomy tube Follow-up surgery for further recommendations Will continue to monitor in ICU Attestations 2 Medical Necessity Statement*: Patient presents with chest pain, found to have pneumothorax in the setting of recent pacemaker implantation status post chest tube placement with expected hospitalization across 2 midnights for chest tube management with goal of eventual removal. Time Spent in Patient Care: 20 minutes Coding Level of Care Code Acute Code for g Fwd Diagnoses Pneumothorax J93.9 Chest pain R07.9 Presence of permanent cardiac pacemaker Z95.0 Ventricular arrhythmia I49.9 EDY (obstructive sleep apnea) G47.33 Time Spent (min) 20
--- NOTE | 2024-03-25 13:25 | P.CONIM_ITS ---
Providers/Reason For Consult 2 Consulting Physician/Specialty*: Dr. Ross general surgery Reason for Consult*: pneumothorax Attending Physician: Divya Florez MD Primary Care Provider: Mallory Salazar MD History of Present Illness History of Present Illness Sixto Starks is a 73 year old male who presents with a left pneumothorax. Chest tube placed in ER. Pneumothorax decreased in size on post procedure CXR. Patient had recently had a pacemaker placed. Currently RA and without any respiratory distress. Medications/Allergies Home Medications Medication Instructions Recorded Confirmed Last Taken Type Custom Accomadative orthotic with #1 ea 12/14/19 03/25/24 Unknown Rx deep heel cup multivitamin (One Daily 1 tab PO DAILY 01/06/23 03/25/24 03/22/24 History Multivitamin tablet) valacyclovir 1 gram tablet 1,000 mg PO Q12H 5 days #10 tabs 03/17/24 03/25/24 Unknown Rx (Valtrex) amlodipine 5 mg tablet 5 mg PO DAILY PRN hypertension #90 03/23/24 03/25/24 Unknown Rx tabs cephalexin 500 mg capsule 500 mg PO QID 5 days #20 caps 03/23/24 03/25/24 Unknown Rx cholecalciferol (vitamin D3) 50 50 mcg PO DAILY 03/25/24 03/25/24 03/22/24 History mcg (2,000 unit) capsule (Vitamin D3) cyanocobalamin (vitamin B-12) 50 50 mcg PO DAILY 03/25/24 03/25/24 03/22/24 History mcg tablet (Vitamin B-12) Allergies Allergy/AdvReac Type Severity Reaction Status Date / Time magnesium oxide Allergy Severe ADR-Diarrhe Verified 03/17/24 07:52 a terbinafine Allergy loss of Verified 03/17/24 07:52 taste Current Medications Generic Name Dose Route Start Last Admin Trade Name Freq PRN Reason Stop Dose Admin Cephalexin HCl 500 mg 03/25/24 09:00 03/25/24 10:44 Cephalexin 500 Mg Capsule PO 500 mg QID JOHANNA Administration Protocol Enoxaparin Sodium 40 mg 03/25/24 05:51 03/25/24 06:09 Enoxaparin 40 Mg/0.4 Ml Syringe SUBCUT 40 mg Q24H JOHANNA Administration Multivitamins Therapeutic 1 tab 03/25/24 09:00 03/25/24 10:44 Multivitamin Therapeutic Tablet PO 1 tab DAILY JOHANNA Administration Ondansetron HCl 4 mg 03/25/24 05:51 03/25/24 09:21 Ondansetron 2 Mg/Ml Sdv 2 Ml IVP 4 mg Q8H PRN Administration vomiting, or N/V if npo Oxycodone/Acetaminophen 1 tab 03/25/24 05:51 03/25/24 07:33 Oxycodone-Apap 5-325 Mg Tablet PO 1 tab Q4H PRN Administration MODERATE PAIN Valacyclovir HCl 1,000 mg 03/25/24 05:51 03/25/24 06:09 Valacyclovir 1,000 Mg Tablet PO 1,000 mg Q12H JOHANNA Administration PFSH Acute 2 PFSH: Medical History History of Holter monitoring 10/2021 NSR with PVCs and occasional NSVT History of sleep study 08/2022 History of squamous cell carcinoma of skin History of basal cell carcinoma of skin EDY (obstructive sleep apnea) not compliant with CPAP therapy Testosterone deficiency B12 deficiency Chronic pruritus Depression Kidney stones Diverticulosis Carotid artery occlusion <50% stenosis bilaterally, moderate atheromatous plaque bilaterally Ventricular arrhythmia PVC and NSVT Abnormal EKG incomplete rbbb Dyslipidemia History of malignant melanoma Surgical History History of bilateral cataract extraction History of cardiac catheterization 10/2021 - mild diffuse coronary artery disease. LVEDP of 3mmHg History of Mohs micrographic surgery for skin cancer History of submandibular gland removal right, benign History of rotator cuff surgery right Family History Mother , 88 Dementia Grandmother Stroke Father , 92, worked in the garden the day he No problems noted. Other Malignant melanoma Denies family history of Diabetes CAD (coronary artery disease) Clotting disorder Chronic kidney disease (CKD) Suicide Anesthesia complication Bleeding disorder Lung disease Cancer Social History Smoking and tobacco/nicotine status: former use of tobacco/nicotine Quit status (tobacco/nicotine): has quit using Year quit tobacco: 1999 Former quit date comment: 20 pack year history Alcohol intake: current Alcohol intake frequency: holidays/special occasions only Substance/Drug Use: never Household members: spouse Marital status: Number of children: 0 service: Yes status: Discharged branch: [employer] Current occupational status: retired 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 Chest tube without a leak. Placed to water seal. Heart: RRR Data 03/25/24 03:47 03/25/24 03:47 A&P Assessment and plan (1) Pneumothorax: Plan 73yo male with left sided pneumothorax. Chest tube placed in ER. Unlabored breathing RA. CT placed to water seal. CXR at 1600 and at 0700. May remobe chest tube tomorrow pending CXR findings. Coding Level of Care Code 57950 Diagnoses Pneumothorax J93.9 Time Spent (min) 30
--- NOTE | 2024-03-25 13:34 | PC.NURSE ---
Dr lin here chest tube to water seal at this time
--- NOTE | 2024-03-25 16:00 | XRR_ITS ---
PROCEDURE INFORMATION: Exam: XR Chest Exam date and time: 03/25/2024 3:20 PM Age: 73 years old Clinical indication: Condition or disease; Other: Follow up pneumothorax; Prior surgery; Surgery date: 3-7 days post-operative; Surgery type: Pacemaker; Chest tube; Additional info: Ptx TECHNIQUE: Imaging protocol: Radiologic exam of the chest. Views: 1 view. COMPARISON: CR (CHEST, ) 03/25/2024 4:10 AM FINDINGS: Tubes, catheters and devices: Left chest tube is stable in position with the tip at the posterior left 7th interspace. There is a dual-lead cardiac pacer via left subclavian approach. Findings are stable. Lungs: Stable left lower lobe atelectasis. Pleural spaces: Stable 7 mm left apical pneumothorax. Heart/Mediastinum: Stable moderate enlargement of the cardiac silhouette. Mediastinal contours are unremarkable. Vasculature: Stable vascular calcifications in the aorta. Stable tortuosity of the aorta. Bones/joints: Degenerative changes in the spine and shoulders. Mild scoliosis in the visualized spine. Soft tissues: Small amount of soft tissue emphysema in the left chest wall at the insertion of the left chest tube. XR/XR chest 1V portable [id number] IMPRESSION: 1. Stable 7 mm left apical pneumothorax. 2. Left chest tube is stable in position with the tip at the posterior left 7th interspace. 3. Small amount of soft tissue emphysema in the left chest wall at the insertion of the left chest tube. 4. Stable left lower lobe atelectasis. 5. Incidental/nonacute findings are listed in the report.
[2024-03-25] MEDS: sennosides 8.6 mg Tablet 17.2 MG PO (20:08)
[2024-03-26] VITALS (91 sets, daily range): BP systolic 88–165; BP diastolic 47–97; PULSE 64–115; RESP 0–41; TEMP 37.2–38.1; O2SAT 89–97; BMI 22.1
[2024-03-26] MEDS: valACYclovir 1,000 mg Tablet 1000 MG PO (05:12)
[2024-03-26] MEDS: enoxaparin 40 mg/0.4 mL Syringe SUBCUT (05:12)
--- NOTE | 2024-03-26 06:00 | XRR_ITS ---
PROCEDURE INFORMATION: Exam: XR Chest Exam date and time: 03/26/2024 5:58 AM Age: 73 years old Clinical indication: Other: F/u pneumothorax; Prior surgery; Surgery date: 3-7 days post-operative; Surgery type: Pacemaker; Patient HX: F/u left pneumothorax; Additional info: Eval ptx TECHNIQUE: Imaging protocol: Radiologic exam of the chest. Views: 1 view. COMPARISON: CR XR chest 1V portable [id number] 03/25/2024 3:20 PM FINDINGS: Tubes, catheters and devices: Dual lead pacemaker is seen on the left. There is a thoracotomy tube on the left. Lungs: The lungs are hyperinflated. There is left basilar atelectasis. Pleural spaces: There is a small left apical pneumothorax similar in size to that seen on prior exam. There is a small left pleural effusion. Heart/Mediastinum: The heart is slightly enlarged. There is calcified plaque involving the aorta. Bones/joints: Unremarkable. XR/XR chest 1V portable [id number] IMPRESSION: 1. Small left apical pneumothorax not significantly changed when compared to prior exam. 2. Left basilar atelectasis with small left pleural effusion.
[2024-03-26] MEDS: amlodipine 5 mg Tablet PO (08:04)
[2024-03-26] MEDS: multivitamin therapeutic Tablet 1 TAB PO (08:04)
[2024-03-26] MEDS: cephALEXin 500 mg Capsule PO ×4 (08:04→21:08)
[2024-03-26] MEDS: oxyCODONE-APAP 5-325 mg Tablet 1 TAB PO (09:40)
[2024-03-26] MEDS: ALPRAZolam 0.5 mg Tablet 1 MG PO (09:41)
--- NOTE | 2024-03-26 10:16 | PC.NURSE ---
Dr. Mooneywar aware of cardiac changes occurring during rounding, frequent PVC. Patient moved to ICU room 8. Patient is currently in recliner at bedside conversing with a visitor. Patient reported slight dizziness after transfer, but states at this time that it is resolving.
--- NOTE | 2024-03-26 11:15 | P.PN_ITS ---
Subjective 2 Subjective: Unlabored breathing RA No chest pain No air leak on WS CXRs reassuring - small apical PTX Vitals/I&O/Wt Last Vital Signs Temp 99.3 F 03/26/24 08:15 Pulse 115 H 03/26/24 08:15 Resp 19 H 03/26/24 09:40 BP 121/71 03/26/24 08:15 Pulse Ox 97 03/26/24 09:40 O2 Del Method Room Air 03/26/24 08:15 O2 Flow Rate 2 03/25/24 04:30 03/25/24 03/26/24 03/26/24 22:59 06:59 14:59 Intake Total 200 / 650 100 / 100 Output Total 255 / 855 700 / 1555 Balance -55 / -205 -700 / -905 100 / 100 Weight last 48 hrs Weight 169 lb 12.095 oz Weight 190 lb Physical Exam 2 Narrative: Heart: RRR Lungs: unlabored breathing RA. L chest tube in place. WS, no leak Data 03/25/24 03:47 03/25/24 03:47 A&P Assessment and plan (1) Pneumothorax: Plan 73yo male who presented with a left PTX following pacemaker placement. ER placed chest tube. CT to WS since yesterday. CXRs -> smal apical PTX. Removed chest tube and applied air tight dressing. Keep dressing for 48hrs. CXR at 1400 to ensure he doesn't reaccumulate a larger PTX compared to the apical one showed at 0600. Rest of care per hospitalist. Discussed with hospitalist. Attestations 2 Medical Necessity Statement*: NA Coding Level of Care Code Acute Code for [facility] Fwd Diagnoses Pneumothorax J93.9 Time Spent (min) 30
--- NOTE | 2024-03-26 11:18 | P.PN_ITS ---
Subjective 2 Subjective: No acute overnight events noted. Seen him at bedside this morning. Seems more anxious. Medications: Reviewed: Yes Vitals/I&O/Wt Last Vital Signs Temp 99.3 F 03/26/24 08:15 Pulse 115 H 03/26/24 08:15 Resp 19 H 03/26/24 09:40 BP 121/71 03/26/24 08:15 Pulse Ox 97 03/26/24 09:40 O2 Del Method Room Air 03/26/24 08:15 O2 Flow Rate 2 03/25/24 04:30 03/25/24 03/26/24 03/26/24 22:59 06:59 14:59 Intake Total 200 / 650 100 / 100 Output Total 255 / 855 700 / 1555 Balance -55 / -205 -700 / -905 100 / 100 Weight last 48 hrs Weight 77 kg Weight 86.183 kg Physical Exam 2 Const: OTHER: General: Patient is awake. Appears uncomfortable. Conversational. Head: Normocephalic. Atraumatic. EOM intact. Neck: No JVD. Cardiovascular: RRR. No gallops. No murmurs. Recent pacemaker site is covered with bandage. Lungs: Slightly tachypneic. Left-sided chest tube. Skin: No jaundice. No rashes. Abdomen: Normal bowel sounds, abdomen soft and nontender. Genito Urinary: Genital exam not performed since complaints not related. Rectal: Rectal exam not performed since no symptoms indicated blood loss. Extremities: No cyanosis or clubbing. Musculoskeletal: No swollen or erythematous joints. Neurological: Moves all 4 extremities. No myoclonus. Data 03/25/24 03:47 03/25/24 03:47 A&P Assessment and plan (1) Pneumothorax: Left-sided pneumothorax Recent pacemaker implantation suspicious for possible cause versus primary spontaneous Status post chest tube placement by ED provider on 03/25 General Surgery's been consulted for management Daily chest x-ray Analgesics as needed (2) Chest pain: Chest pain likely associated with pneumothorax Coronary angiogram noted Analgesics as needed (3) Presence of permanent cardiac pacemaker: Pacemaker recently implanted by Dr. Bolton for third-degree heart block Telemetry monitoring Consult cardiology if needed (4) Ventricular arrhythmia: Telemetry monitoring (5) EDY (obstructive sleep apnea): Not compliant with CPAP Plan DVT prophylaxis: Lovenox 03/25/24 Chest x-ray improved as compared to admission s/p thoracotomy tube Follow-up surgery for further recommendations Will continue to monitor in ICU 03/26/24 As per surgery chest tube removed and applied airtight dressing. Plan to repeat chest x-ray at 2 PM to ensure he does not reaccumulate. Will follow-up surgery if any change in the status. Continue to monitor in ICU, if stable will transfer to medical surgical floor He has also been having more frequent PVCs today. Not on any rate control medications at home. Recently had a pacemaker placed. Will continue to monitor for now. Attestations 2 Medical Necessity Statement*: Patient presents with chest pain, found to have pneumothorax in the setting of recent pacemaker implantation status post chest tube placement with expected hospitalization across 2 midnights for chest tube management with goal of eventual removal. Time Spent in Patient Care: 20 minutes Coding Level of Care Code Acute Code for [facility] Fwd Diagnoses Pneumothorax J93.9 Chest pain R07.9 Presence of permanent cardiac pacemaker Z95.0 Ventricular arrhythmia I49.9 EDY (obstructive sleep apnea) G47.33 Time Spent (min) 20
--- NOTE | 2024-03-26 14:00 | XRR_ITS ---
PROCEDURE INFORMATION: Exam: XR Chest Exam date and time: 03/26/2024 2:02 PM Age: 73 years old Clinical indication: Device placement; Chest tube; Additional info: Follow-up for pneumothorax TECHNIQUE: Imaging protocol: Radiologic exam of the chest. Views: 1 view. COMPARISON: CR (CHEST, ) 03/26/2024 5:58 AM FINDINGS: Tubes, catheters and devices: Cardiac pacemaker on the left with leads in satisfactory position. Lungs: Patchy atelectasis is again noted in the left lung base. Pleural spaces: The left-sided chest tube has been removed and a very small left apical pneumothorax remain stable. Heart/Mediastinum: Unremarkable. No cardiomegaly. Bones/joints: Unremarkable. Soft tissues: A small amount of subcutaneous emphysema remain stable. XR/XR chest 1V portable [id number] IMPRESSION: Stable tiny left pneumothorax after chest tube removal
--- NOTE | 2024-03-26 14:58 | PC.NURSE ---
Spoke with Dr. Florez regarding frequent PVC's and a-fib, as well as patient requesting something to make me sleep tonight. Telephone order for ambien 5mg. See MAR. Patient reports pain at 0 since chest tube removal.
[2024-03-26] MEDS: zolpidem 5 mg Tablet PO (21:08)
[2024-03-26] MEDS: sennosides 8.6 mg Tablet 17.2 MG PO (21:08)
[2024-03-27] VITALS (77 sets, daily range): BP systolic 104–182; BP diastolic 49–107; PULSE 62–111; RESP 6–38; TEMP 36.7–37.2; O2SAT 85–98; BMI 21.9
[2024-03-27] MEDS: ALPRAZolam 0.5 mg Tablet PO ×2 (02:23→16:55)
[2024-03-27 04:34] LABS: Basophils % 0.6 %; Eosinophils # 0.5 10^3/uL (0.0-0.8); Eosinophils % 7.3 %; Hematocrit 43.2 % (37-53); Lymphocytes # 1.1 10^3/uL (0.8-4.8); Lymphocytes % 16.6 %; Mean Corpuscular HGB Conc 33.3 g/dL (30-55); Mean Corpuscular Hemoglobin 29.2 pg (27-33); Mean Corpuscular Volume 87.6 fl (82-101); Mean Platelet Volume 11.4 fL (7.4-10.4); Monocytes # 0.7 10^3/uL (0.2-0.9); Monocytes % 10.9 %; Neutrophils # 4.13 10^3/uL (1.8-7.7); Neutrophils % 64.3 %; Nucleated Red Blood Cells % 0 %; Platelet Count 133 10^3/cmm (157-399); Red Blood Count 4.93 10^6/uL (3.85-5.65); Red Cell Distribution Width 14.2 % (12.1-15.1); White Blood Count 6.43 10^3/uL (3.29-11.43)
[2024-03-27 04:51] LABS: Anion Gap 12.6 (5-19); Blood Urea Nitrogen 18 mg/dL (8-23); Calcium 9.4 mg/dL (8.5-10.5); Carbon Dioxide 29 mmol/L (22-29); Chloride 103 mmol/L (98-107); Creatinine Clr Calc Pharmacy 64.3612; Glucose 113 mg/dL (65-115); Magnesium 1.9 mg/dL (1.7-2.3); Osmolality Calculated 293 mOsm/kg (285-295); Potassium 4.6 mmol/L (3.5-5.1); Sodium 140 mmol/L (136-145)
--- NOTE | 2024-03-27 06:00 | XR_ITS ---
WS: [id number] Portable AP upright chest, 03/27/2024 Clinical Data: Eval PTX Comparison: Portable chest, 03/26/2024 Findings: The patchy atelectasis in the left lung base remains the same. There is a small left apical pneumothorax unchanged. Minimal subcutaneous emphysema exists unchanged over the left lower lateral chest. The heart is normal. The cardiac pacemaker remains the same. There are monitor leads on the ch est wall. There is an orthopedic anchor in the right humeral head. No nodules, masses or effusions ar e seen. The heart is normal. The pulmonary vascularity is not increased. No pneumonia is seen. XR/XR chest 1V portable [id number] Impression: No change in small left apical pneumothorax.
[2024-03-27] MEDS: enoxaparin 40 mg/0.4 mL Syringe SUBCUT (06:09)
[2024-03-27] MEDS: valACYclovir 1,000 mg Tablet 1000 MG PO (06:09)
[2024-03-27] MEDS: amlodipine 5 mg Tablet PO (08:25)
[2024-03-27] MEDS: magnesium oxide 400 mg tablet PO (08:25)
[2024-03-27] MEDS: multivitamin therapeutic Tablet 1 TAB PO (08:25)
[2024-03-27] MEDS: cephALEXin 500 mg Capsule PO ×4 (08:25→20:20)
--- NOTE | 2024-03-27 08:28 | PC.NURSE ---
Patient states he does not know why magnesium oxide is listed as an allergy. He states he has never had a reaction or has never had the medication that he knows of.
[2024-03-27] MEDS: lactulose oral liq 20 gm/30 mL UDC PO (12:17)
--- NOTE | 2024-03-27 14:36 | PC.SOCIAL ---
IMM UPDATED IMM dated and initialed, copy given to patient and copy placed in chart.
--- NOTE | 2024-03-27 14:40 | P.PN_ITS ---
Subjective 2 Subjective: No acute overnight events noted. States chest pain improved, feeling much better this morning Medications: Reviewed: Yes Vitals/I&O/Wt Last Vital Signs Temp 98.9 F 03/27/24 07:45 Pulse 99 03/27/24 13:30 Resp 29 H 03/27/24 13:30 BP 154/89 03/27/24 13:30 Pulse Ox 97 03/27/24 13:30 O2 Del Method Room Air 03/27/24 13:30 O2 Flow Rate 2 03/25/24 04:30 03/26/24 03/27/24 03/27/24 22:59 06:59 14:59 Intake Total 200 / 500 400 / 400 Output Total 650 / 1000 900 / 1900 350 / 350 Balance -450 / -500 -900 / -1400 50 / 50 Weight last 48 hrs Weight 75.5 kg Weight 76.204 kg Physical Exam 2 Const: OTHER: General: Patient is awake. Appears uncomfortable. Conversational. Head: Normocephalic. Atraumatic. EOM intact. Neck: No JVD. Cardiovascular: RRR. No gallops. No murmurs. Recent pacemaker site is covered with bandage. Lungs: Clear to auscultation bilaterally Skin: No jaundice. No rashes. Abdomen: Normal bowel sounds, abdomen soft and nontender. Genito Urinary: Genital exam not performed since complaints not related. Rectal: Rectal exam not performed since no symptoms indicated blood loss. Extremities: No cyanosis or clubbing. Musculoskeletal: No swollen or erythematous joints. Neurological: Moves all 4 extremities. No myoclonus. Data 03/27/24 04:20 03/27/24 04:20 A&P Assessment and plan (1) Pneumothorax: Left-sided pneumothorax Recent pacemaker implantation suspicious for possible cause versus primary spontaneous Status post chest tube placement by ED provider on 03/25 General Surgery's been consulted for management Daily chest x-ray Analgesics as needed (2) Chest pain: Chest pain likely associated with pneumothorax Coronary angiogram noted Analgesics as needed (3) Presence of permanent cardiac pacemaker: Pacemaker recently implanted by Dr. Bolton for third-degree heart block Telemetry monitoring Consult cardiology if needed (4) Ventricular arrhythmia: Telemetry monitoring (5) EDY (obstructive sleep apnea): Not compliant with CPAP Plan DVT prophylaxis: Lovenox 03/25/24 Chest x-ray improved as compared to admission s/p thoracotomy tube Follow-up surgery for further recommendations Will continue to monitor in ICU 03/26/24 As per surgery chest tube removed and applied airtight dressing. Plan to repeat chest x-ray at 2 PM to ensure he does not reaccumulate. Will follow-up surgery if any change in the status. Continue to monitor in ICU, if stable will transfer to medical surgical floor He has also been having more frequent PVCs today. Not on any rate control medications at home. Recently had a pacemaker placed. Will continue to monitor for now. 03/27/24 He is hemodynamically stable, heart rate in 90-100. Not on any rate control medications at home. He recently had a pacemaker procedure on 03/23 for complete heart block and symptomatic bradycardia. Need pacemaker interrogation, and if needed can do metoprolol as needed for rate control. Chest x-ray done this morning showed unchanged apical pneumothorax. Symptomatically improved. Will monitor in ICU for today. Repeat chest x-ray in a.m. and if unchanged plan for discharge home tomorrow. Attestations 2 Medical Necessity Statement*: Anticipating discharge in 24 hours Time Spent in Patient Care: 15 minutes Coding Level of Care Code Acute Code for Chg Fwd Diagnoses Pneumothorax J93.9 Chest pain R07.9 Presence of permanent cardiac pacemaker Z95.0 Ventricular arrhythmia I49.9 EDY (obstructive sleep apnea) G47.33 Time Spent (min) 15
[2024-03-27] MEDS: magnesium hydroxide 30 mL UDC PO (15:05)
--- NOTE | 2024-03-27 17:22 | PC.NURSE ---
Patient on commode, reporting dizziness after pushing while attempting to have a bowel movement. Patient states every time I do this at home I end up on the bathroom floor. Assisted patient back to bed, dizziness resolved, instructed patient against forcing bowel movement. Patient given cup of water and instructed to sip water and allow time for medications given to promote bowel movement. Patient requested PRN xanax. See MAR.
[2024-03-27] MEDS: hyDRALAzine 20 mg/mL INJ 1 mL 5 MG IVP (17:50)
[2024-03-27] MEDS: glycerin adult supp 1 EACH PR (18:35)
[2024-03-27] MEDS: sennosides 8.6 mg Tablet 17.2 MG PO (20:20)
[2024-03-27] MEDS: zolpidem 5 mg Tablet PO (21:05)
[2024-03-28] VITALS (28 sets, daily range): BP systolic 108–156; BP diastolic 62–94; PULSE 88–106; RESP 10–34; TEMP 36.8–37.1; O2SAT 93–98; BMI 21.9
--- NOTE | 2024-03-28 06:00 | XRR_ITS ---
PROCEDURE INFORMATION: Exam: XR Chest Exam date and time: 03/28/2024 6:55 AM Age: 73 years old Clinical indication: Condition or disease; Lung condition and disease; Pneumothorax; Additional info: Eval ptx TECHNIQUE: Imaging protocol: Radiologic exam of the chest. Views: 1 view. COMPARISON: CR XR chest 1V portable [id number] 03/27/2024 6:44 AM FINDINGS: Tubes, catheters and devices: Multi lead pacemaker/defibrillator. Lungs: Unremarkable. No consolidation. Pleural spaces: The small left apical pneumothorax is either unchanged or minimally larger than yesterday. The apparent minimal increase may be projectional. Heart/Mediastinum: Unremarkable. No cardiomegaly. Bones/joints: Unremarkable. XR/XR chest 1V portable [id number] IMPRESSION: Small left apical pneumothorax.
[2024-03-28] MEDS: enoxaparin 40 mg/0.4 mL Syringe SUBCUT (06:28)
[2024-03-28] MEDS: valACYclovir 1,000 mg Tablet 1000 MG PO (06:28)
[2024-03-28 07:35] LABS: Basophils # 0.1 10^3/uL (0.0-0.1); Basophils % 0.6 %; Eosinophils # 0.6 10^3/uL (0.0-0.8); Eosinophils % 6.7 %; Hematocrit 45.8 % (37-53); Lymphocytes # 1.2 10^3/uL (0.8-4.8); Lymphocytes % 14.3 %; Mean Corpuscular HGB Conc 33.4 g/dL (30-55); Mean Corpuscular Hemoglobin 28.8 pg (27-33); Mean Corpuscular Volume 86.3 fl (82-101); Mean Platelet Volume 11.4 fL (7.4-10.4); Monocytes # 0.8 10^3/uL (0.2-0.9); Neutrophils # 5.85 10^3/uL (1.8-7.7); Neutrophils % 68.9 %; Nucleated Red Blood Cells % 0 %; Platelet Count 178 10^3/cmm (157-399); Red Blood Count 5.31 10^6/uL (3.85-5.65); Red Cell Distribution Width 14.4 % (12.1-15.1); White Blood Count 8.48 10^3/uL (3.29-11.43)
[2024-03-28 07:52] LABS: Anion Gap 13.5 (5-19); Blood Urea Nitrogen 19 mg/dL (8-23); Carbon Dioxide 29 mmol/L (22-29); Chloride 100 mmol/L (98-107); Creatinine Clr Calc Pharmacy 58.7859; Glucose 100 mg/dL (65-115); Magnesium 2.2 mg/dL (1.7-2.3); Osmolality Calculated 288 mOsm/kg (285-295); Potassium 4.5 mmol/L (3.5-5.1); Sodium 138 mmol/L (136-145)
[2024-03-28] MEDS: cephALEXin 500 mg Capsule PO (08:07)
[2024-03-28] MEDS: amlodipine 5 mg Tablet PO (08:07)
[2024-03-28] MEDS: multivitamin therapeutic Tablet 1 TAB PO (08:08)
--- NOTE | 2024-03-28 10:55 | PM.DCS ---
Discharge Providers Date of Admission: 03/25/24 04:34 Date of Discharge: March 28, 2024 Attending Provider at Admission: Jewel Payne MD Attending Provider at Discharge: Divya Florez MD Primary Care Provider: Mallory Salazar MD Diagnoses at Discharge Discharge Diagnosis (1) Pneumothorax: Status: Acute (2) Chest pain: Status: Acute (3) Presence of permanent cardiac pacemaker: Status: Acute (4) Ventricular arrhythmia: Status: Chronic Permanent problem details: PVC and NSVT (5) EDY (obstructive sleep apnea): Status: Chronic Permanent problem details: not compliant with CPAP therapy Reason for Visit Reason for Visit: CP Brief History: Sixto Starks is a 73 year old male with past medical history significant for sleep apnea, depression, third-degree heart block status post recent pacemaker implantation, dyslipidemia, and multiple other comorbidities who presents to the emergency department with substernal chest pain. He describes the pain as sharp. Located in the center of his chest. Reports some palpitations at times. Rates it currently 8 out of 10. Endorses slight shortness of breath. Denies fevers or chills. In the emergency department, he was found to have left-sided pneumothorax. Chest tube was placed with significant improvement in pneumothorax. General surgery consulted for chest tube management. Hospital Course Hospital Course Assessment and plan (1) Pneumothorax: Left-sided pneumothorax Recent pacemaker implantation suspicious for possible cause versus primary spontaneous Status post chest tube placement by ED provider on 03/25 General Surgery's been consulted for management Daily chest x-ray Analgesics as needed (2) Chest pain: Chest pain likely associated with pneumothorax Coronary angiogram noted Analgesics as needed (3) Presence of permanent cardiac pacemaker: Pacemaker recently implanted by Dr. Bolton for third-degree heart block Telemetry monitoring Consult cardiology if needed (4) Ventricular arrhythmia: Telemetry monitoring (5) EDY (obstructive sleep apnea): Not compliant with CPAP Plan DVT prophylaxis: Lovenox 03/25/24 Chest x-ray improved as compared to admission s/p thoracotomy tube Follow-up surgery for further recommendations Will continue to monitor in ICU 03/26/24 As per surgery chest tube removed and applied airtight dressing. Plan to repeat chest x-ray at 2 PM to ensure he does not reaccumulate. Will follow-up surgery if any change in the status. Continue to monitor in ICU, if stable will transfer to medical surgical floor He has also been having more frequent PVCs today. Not on any rate control medications at home. Recently had a pacemaker placed. Will continue to monitor for now. 03/27/24 He is hemodynamically stable, heart rate in 90-100. Not on any rate control medications at home. He recently had a pacemaker procedure on 03/23 for complete heart block and symptomatic bradycardia. Need pacemaker interrogation, and if needed can do metoprolol as needed for rate control. Chest x-ray done this morning showed unchanged apical pneumothorax. Symptomatically improved. Will monitor in ICU for today. Repeat chest x-ray in a.m. and if unchanged plan for discharge home tomorrow. 03/28/24 He is doing well, hemodynamically stable. CXR showed unchanged left apical pneumothorax. But he is asymptomatic. Will discharge him home today to follow up with cardiology as outpatient. Physical Exam Const: OTHER: General: Patient is awake. Appears uncomfortable. Conversational. Head: Normocephalic. Atraumatic. EOM intact. Neck: No JVD. Cardiovascular: RRR. No gallops. No murmurs. Recent pacemaker site is covered with bandage. Lungs: Clear to auscultation bilaterally Skin: No jaundice. No rashes. Abdomen: Normal bowel sounds, abdomen soft and nontender. Genito Urinary: Genital exam not performed since complaints not related. Rectal: Rectal exam not performed since no symptoms indicated blood loss. Extremities: No cyanosis or clubbing. Musculoskeletal: No swollen or erythematous joints. Neurological: Moves all 4 extremities. No myoclonus. Discharge Data Studies Completed and Pending Completed Studies During Hospitalization Category Date Time Status CXRP [XR chest 1V portable [id number]] DAILY Exams 03/26/24 06:00 Completed CXRP [XR chest 1V portable [id number]] DAILY Exams 03/27/24 06:00 Completed CXRP [XR chest 1V portable [id number]] DAILY Exams 03/28/24 06:00 Completed CXRP [XR chest 1V portable [id number]] Routine Exams 03/25/24 16:00 Completed XR chest 1V portable [id number] Routine Exams 03/26/24 14:00 Completed XR chest 1V portable [id number] Stat Exams 03/25/24 03:34 Completed XR chest 1V portable [id number] Stat Exams 03/25/24 04:10 Completed Pending at discharge Category Date Time Status CXRP [XR chest 1V portable [id number]] DAILY Exams 03/29/24 06:00 Ordered Radiology Impressions Chest X-Ray 03/28/24 06:00 IMPRESSION: Small left apical pneumothorax. Laboratory Results WBC 8.48 10^3/uL (3.29-11.43) 03/28/24 07:16 RBC 5.31 10^6/uL (3.85-5.65) 03/28/24 07:16 Hgb 15.30 g/dL (11.27-16.99) 03/28/24 07:16 Hct 45.8 % (37-53) 03/28/24 07:16 MCV 86.3 fl (82-101) 03/28/24 07:16 MCH 28.8 pg (27-33) 03/28/24 07:16 MCHC 33.4 g/dL (30-55) 03/28/24 07:16 RDW 14.4 % (12.1-15.1) 03/28/24 07:16 Plt Count 178 10^3/cmm (157-399) D 03/28/24 07:16 MPV 11.4 fL (7.4-10.4) H 03/28/24 07:16 Neut % (Auto) 68.9 % 03/28/24 07:16 Lymph % (Auto) 14.3 % 03/28/24 07:16 [place] % (Auto) 9.0 % 03/28/24 07:16 Eos % (Auto) 6.7 % 03/28/24 07:16 Baso % (Auto) 0.6 % 03/28/24 07:16 Neut # (Auto) 5.85 10^3/uL (1.8-7.7) 03/28/24 07:16 Lymph # (Auto) 1.2 10^3/uL (0.8-4.8) 03/28/24 07:16 [place] # (Auto) 0.8 10^3/uL (0.2-0.9) 03/28/24 07:16 Eos # (Auto) 0.6 10^3/uL (0.0-0.8) 03/28/24 07:16 Baso # (Auto) 0.1 10^3/uL (0.0-0.1) 03/28/24 07:16 Nucleated RBC % (auto) 0 % 03/28/24 07:16 Nucleated RBCs # 0.0 /100WBC 03/28/24 07:16 PT 11.90 SECONDS (12.1-14.9) L 03/25/24 03:47 INR 0.86 (0.8-1.2) 03/25/24 03:47 Sodium 138 mmol/L (136-145) 03/28/24 07:16 Potassium 4.5 mmol/L (3.5-5.1) 03/28/24 07:16 Chloride 100 mmol/L (98-107) 03/28/24 07:16 Carbon Dioxide 29 mmol/L (22-29) 03/28/24 07:16 Anion Gap 13.5 (5-19) 03/28/24 07:16 BUN 19 mg/dL (8-23) 03/28/24 07:16 Creatinine 1.2 mg/dL (0.7-1.2) 03/28/24 07:16 GFR Calculation Not Reportable 03/28/24 07:16 Glucose 100 mg/dL (65-115) 03/28/24 07:16 Calculated Osmolality 288 mOsm/kg (285-295) 03/28/24 07:16 Calcium 10.0 mg/dL (8.5-10.5) 03/28/24 07:16 Magnesium 2.2 mg/dL (1.7-2.3) 03/28/24 07:16 Total Bilirubin 0.5 mg/dL (0.15-1.2) 03/25/24 03:47 AST 23 U/L (0-40) 03/25/24 03:47 ALT 13 U/L (0-41) 03/25/24 03:47 Alkaline Phosphatase 67 U/L (40-130) 03/25/24 03:47 Troponin T Baseline 39 ng/L (0-15) H 03/25/24 03:47 Troponin T 120 Minute 35.95 ng/L (0-15) H 03/25/24 06:06 Delta Troponin T -3.05 ABS# (0-10) L 03/25/24 06:06 Troponin T Hi Sens 6Hr 32.63 ng/L (0-15) H 03/25/24 09:30 Troponin T Hi Sens 6Hr Delta -6.37 ng/L (0-12) L 03/25/24 09:30 Total Protein 6.5 g/dL (6.6-8.7) L 03/25/24 03:47 Albumin 4.1 g/dL (3.5-5.2) 03/25/24 03:47 Globulin 2.4 g/dL (1.3-4.6) 03/25/24 03:47 Vitals Last Vital Signs Temp 98.3 F 03/28/24 04:00 Pulse 98 03/28/24 10:00 Resp 21 H 03/28/24 10:00 BP 120/82 03/28/24 10:00 Pulse Ox 95 03/28/24 10:00 O2 Del Method Room Air 03/28/24 04:00 O2 Flow Rate 2 03/25/24 04:30 Discharge Plan Discharge Patient Disposition: Home Condition: Stable Prescriptions: New magnesium hydroxide [Milk of Magnesia] 400 mg/5 mL Suspension 30 ml PO DAILY PRN (Reason: Constipation) 7 Days Qty: 210 0RF zolpidem 5 mg Tablet 5 mg PO BEDTIME PRN (Reason: Sleep) 7 Days Qty: 7 0RF Continued valacyclovir [Valtrex] 1 gram tablet 1,000 mg PO Q12H 5 Days Qty: 10 0RF multivitamin [One Daily Multivitamin] Tablet 1 tab PO DAILY amlodipine 5 mg Tablet 5 mg PO DAILY PRN (Reason: hypertension) Qty: 90 0RF Rx Instructions: Blood pressure >130 systolic or 90 diastolic cephalexin 500 mg Capsule 500 mg PO QID 5 Days Qty: 20 0RF Vitamin B-12 50 mcg Tablet 50 mcg PO DAILY cholecalciferol (vitamin D3) [Vitamin D3] 50 mcg (2,000 unit) Capsule 50 mcg PO DAILY No Action (DME) Custom Accomadative orthotic with deep heel cup See Rx Instructions .ROUTE .MEDSUPPLY Qty: 1 0RF Rx Instructions: As directed Discharge Orders: Discharge Order (Routine); Ordered 03/28/24 Ordered By: Divya Florez Referrals: Mallory Salazar MD [Primary Care Provider] - 04/04/24 11:20 am (Appointment still made from previous stay.) Discharge Diet: Cardiac Discharge Activity: Increase activity as tolerated Patient Instructions: Opioid Safety Discharge Attestations Time Spent in Discharge Care*: less than 30 min Quality Metrics Clinical Quality Measures [ No reported AMI, CVA or VTE this stay] Coding Level of Care Code Acute Code for Chg Fwd Diagnoses Pneumothorax J93.9 Chest pain R07.9 Presence of permanent cardiac pacemaker Z95.0 Ventricular arrhythmia I49.9 EDY (obstructive sleep apnea) G47.33 Time Spent (min) 15
== END 2024-03-28 11:55 | disposition home or self-care (01) | DRG 200 ==
LOC: ER 04:50 → ICU 05:16
PROVIDERS: Admitting Provider Internal Medicine; Emergency Provider Emergency Medicine; PCP Family Medicine; Visit Provider Internal Medicine
DX: J93.83 Other pneumothorax (principal); I44.2 Atrioventricular block, complete; G47.33 Obstructive sleep apnea (adult) (pediatric); Z95.0 Presence of cardiac pacemaker; E78.5 Hyperlipidemia, unspecified; Z85.828 Personal history of other malignant neoplasm of skin; Z85.820 Personal history of malignant melanoma of skin; F32.A Depression, unspecified; Z87.442 Personal history of urinary calculi; K57.90 Diverticulosis of intestine, part unspecified, without perforation or abscess without bleeding; I25.10 Atherosclerotic heart disease of native coronary artery without angina pectoris; Z87.891 Personal history of nicotine dependence; I49.3 Ventricular premature depolarization
CPT/HCPCS: 36415; 71045; 80048; 80053; 83735; 84484; 85025; 85610; 93005; 96372; 96374; 96375; 96376; 99291; J0360; J1171; J1650; J2405; J2704

== ENCOUNTER → 2024-03-29 14:55 | Outpatient (BNVA) | payer MEDICARE, OTHER, SELFPAY | PROVIDERS: PCP Family Medicine; Visit Provider Nurse Practitioner Family | DX: I44.2 Atrioventricular block, complete (principal); Z95.0 Presence of cardiac pacemaker; Z87.891 Personal history of nicotine dependence; I48.91 Unspecified atrial fibrillation; J93.83 Other pneumothorax | CPT/HCPCS: 99214 ==

== ENCOUNTER → 2024-04-05 10:15 | Outpatient (BNVA) | payer MEDICARE, OTHER, SELFPAY | PROVIDERS: PCP Family Medicine; Visit Provider Internal Medicine Cardiovascular Disease | DX: Z45.010 Encounter for checking and testing of cardiac pacemaker pulse generator [battery] (principal) | CPT/HCPCS: 93296 ==

== ENCOUNTER → 2024-04-07 08:18 | Outpatient (BNVA) | payer MEDICARE, OTHER, SELFPAY | PROVIDERS: PCP Family Medicine; Visit Provider Nurse Practitioner Family | DX: D22.4 Melanocytic nevi of scalp and neck (principal); L85.3 Xerosis cutis; L57.8 Other skin changes due to chronic exposure to nonionizing radiation; X58.XXXA Exposure to other specified factors, initial encounter | CPT/HCPCS: 17004; 99214 ==

== ENCOUNTER → 2024-06-15 09:54 | Outpatient (BNVA) | payer MEDICARE, OTHER, SELFPAY | PROVIDERS: PCP Family Medicine; Visit Provider Internal Medicine Cardiovascular Disease | DX: R06.02 Shortness of breath (principal); E78.5 Hyperlipidemia, unspecified; Z95.0 Presence of cardiac pacemaker; R03.0 Elevated blood-pressure reading, without diagnosis of hypertension; I65.23 Occlusion and stenosis of bilateral carotid arteries; R42 Dizziness and giddiness | CPT/HCPCS: 36415; 80048; 80076; 83880; 99215 ==

== ENCOUNTER 2024-07-11 06:21 | Outpatient (CLI) | payer MEDICARE, OTHER, SELFPAY ==
--- NOTE | 2024-07-11 06:15 | USCV_ITS ---
Sixto Starks Age: 73 Gender: M : 1950 Exam Date: 07/11/2024 06:34 Ordering Phys: Oz Bolton MD ([email or web address]) Technologist: [place] [facility] [place]: [place] BP: / HR: Rhythm: Sinus Technical Quality: Adequate MEASUREMENTS (Male / Female) Normal Values 2D ECHO LV Diastolic Diameter PLAX 5.5 cm 4.2 - 5.9 / 3.9 - 5.3 cm IVS Diastolic Thickness 1.1 cm 0.6 - 1.0 / 0.6 - 0.9 cm IVS Systolic Thickness 1.6 cm LVPW Diastolic Thickness 1.5 cm 0.6 - 1.0 / 0.6 - 0.9 cm LVPW Systolic Thickness 1.6 cm LVOT Diameter 2.0 cm LV Ejection Fraction 2D Teich 48.8 % LV Ejection Fraction MOD 4C 28.0 % LV Ejection Fraction MOD 2C 32.7 % LV Ejection Fraction 2C AL 31.5 % LA Diameter 3.9 cm RA Systolic Volume 4C AL 49.8 ml RA Systolic Volume 4C MOD 47.9 ml LA Sys Volume AL 63.9 cm cubed LA Sys Volume Index AL 33.0 cm cubed/m squared Aorta at Sinotubular Diameter 3.4 cm M-MODE LA Ao Ratio MM 1.3 AV Cusp Separation MM 2.5 cm FINDINGS Left Ventricle Moderately increased left ventricular cavity size. Severely decreased left ventricular systolic function. Left ventricular ejection fraction is estimated at 28 % Right Ventricle Right Atrium Left Atrium Mitral Valve Aortic Valve Tricuspid Valve Pulmonic Valve Pericardium Aorta IVC CONCLUSIONS Limited echo Moderately increased left ventricular cavity size. Severely decreased left ventricular systolic function. Left ventricular ejection fraction is estimated at 28 % There is no pericardial effusion. Adriana Sanders MD (Electronically Signed) Final Date: 20 July 2024 11:43 S
== END 2024-07-11 06:22 | disposition home or self-care (01) ==
LOC: RAD 06:22
PROVIDERS: PCP Family Medicine; Visit Provider Internal Medicine Cardiovascular Disease
DX: I42.9 Cardiomyopathy, unspecified (principal); I51.7 Cardiomegaly; R93.1 Abnormal findings on diagnostic imaging of heart and coronary circulation
CPT/HCPCS: 93308

== ENCOUNTER → 2024-08-14 12:27 | Outpatient (BNVA) | payer MEDICARE, OTHER, SELFPAY | PROVIDERS: PCP Family Medicine; Visit Provider Nurse Practitioner Family | DX: I50.20 Unspecified systolic (congestive) heart failure (principal); I48.91 Unspecified atrial fibrillation; E78.5 Hyperlipidemia, unspecified; I49.3 Ventricular premature depolarization; Z95.0 Presence of cardiac pacemaker | CPT/HCPCS: 99214 ==

== ENCOUNTER 2024-08-29 08:05 | Observation (INO) | payer MEDICARE, OTHER, SELFPAY ==
[2024-08-29] VITALS (16 sets, daily range): BP systolic 97–148; BP diastolic 54–85; PULSE 78–823; RESP 18–23; TEMP 36.6–36.9; O2SAT 92–98
--- NOTE | 2024-08-29 08:21 | XRR_ITS ---
PROCEDURE INFORMATION: Exam: XR Chest Exam date and time: 08/29/2024 8:22 AM Age: 73 years old Clinical indication: Pain; Angina pectoris; Prior surgery; Surgery date: 6+ months; Surgery type: Pacer; Additional info: Chest pain TECHNIQUE: Imaging protocol: Radiologic exam of the chest. Views: 1 view. COMPARISON: CR XR chest 1V portable [id number] 03/28/2024 6:55 AM FINDINGS: Tubes, catheters and devices: Multilead pacemaker/defibrillator. Lungs: Hypoventilatory changes at the left lung base. Pleural spaces: Unremarkable. No pleural effusion. No pneumothorax. Heart/Mediastinum: See Vasculature finding. Vasculature: Moderate cardiomegaly and uncoiling of the thoracic aorta. Bones/joints: Unremarkable. XR/XR chest 1V portable [id number] IMPRESSION: No acute findings.
--- NOTE | 2024-08-29 08:21 | ECG_ITS ---
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 Measurements Intervals [place] Rate: 92 P: 78 HI: 194 QRS: -81 QRSD: 158 T: 93 QT: 426 QTc: 527 Interpretive Statements ELECTRONIC VENTRICULAR PACEMAKER Compared to ECG 03/25/2024 09:44:08 No significant changes Electronically Signed On 09-04-2024 10:20:04 CDT by Gelacio Espinal M.D. [email or web address]
[2024-08-29] MEDS: sacubitril/valsartan 24-26 mg Tablet 1 EACH PO ×2 (08:28→16:59)
[2024-08-29] MEDS: amiodarone 200 mg Tablet PO (08:28)
[2024-08-29] MEDS: aspirin 81 mg Chew Tablet 324 MG PO (08:29)
[2024-08-29 08:30] LABS: Basophils % 0.5 %; Eosinophils # 0.3 10^3/uL (0.0-0.8); Eosinophils % 3.5 %; Lymphocytes # 1.3 10^3/uL (0.8-4.8); Lymphocytes % 14.7 %; Mean Corpuscular HGB Conc 33.4 g/dL (30-55); Mean Corpuscular Hemoglobin 29.8 pg (27-33); Mean Corpuscular Volume 89.1 fl (82-101); Mean Platelet Volume 11.2 fL (7.4-10.4); Monocytes # 0.9 10^3/uL (0.2-0.9); Monocytes % 9.8 %; Neutrophils # 6.32 10^3/uL (1.8-7.7); Neutrophils % 71.3 %; Nucleated Red Blood Cells % 0 %; Platelet Count 230 10^3/cmm (157-399); Red Cell Distribution Width 13.9 % (12.1-15.1); White Blood Count 8.86 10^3/uL (3.29-11.43)
[2024-08-29] MEDS: nitroglycerin 1 gm/inch oint Pkt 0.5 INCH TOPICAL (08:30)
--- NOTE | 2024-08-29 09:12 | W.ED.CHESTPA ---
HPI - Chest Pain General: Chief Complaint: Chest Pain Stated Complaint: chest pain/sob Time Seen by Provider: 08/29/24 08:07 History of Present Illness: 73-year-old male presents to the emergency room with complaints of intermittent chest pain. He said chest pain since last Wednesday it occurs with exertion and is relieved by rest. It has been increasing in intensity the last several days. He did not take his medications this morning. No recent changes in medications at other than some few weeks ago he was started on anastrozole. He denies fever sweats or chills or productive cough. He has some mild chest discomfort at this time. Associated symptoms: Reports dyspnea; Deny abdominal pain or fever(s) Related Data Home Medications ?Medication ?Instructions ?Recorded ?Confirmed simvastatin 5 mg tablet 10 mg PO DAILY 06/15/24 08/29/24 Previous Rx's ?Medication ?Instructions ?Recorded apixaban 5 mg tablet 5 mg PO BID #540 tabs 06/15/24 furosemide 20 mg tablet 20 mg PO DAILY #90 tabs 06/19/24 potassium chloride 8 mEq 8 meq PO DAILY #90 caps 06/19/24 capsule,extended release amlodipine 5 mg tablet 5 mg PO DAILY PRN hypertension #90 07/24/24 tabs amiodarone 200 mg tablet 200 mg PO QDAY Atrial fibrillation 08/14/24 #90 tabs sacubitril 24 mg-valsartan 26 mg 1 tab PO BID #60 tabs 08/14/24 tablet Allergies Allergy/AdvReac Type Severity Reaction Status Date / Time magnesium oxide Allergy Severe ADR-Diarrhe Verified 08/14/24 12:53 a terbinafine Allergy loss of Verified 08/14/24 12:53 taste Review of Systems Const: Denies: fever(s) or chills Card: Reports: chest pain and dyspnea on exertion Resp: Reports: dyspnea GI: Denies: abdominal pain : Denies: dysuria, urinary frequency or urinary urgency Musc: Denies: neck pain or back pain Skin/Breast: Denies: rash PFSH ED PFSH: Medical History History of Holter monitoring 10/2021 NSR with PVCs and occasional NSVT History of sleep study 08/2022 History of squamous cell carcinoma of skin History of basal cell carcinoma of skin EDY (obstructive sleep apnea) not compliant with CPAP therapy Testosterone deficiency B12 deficiency Chronic pruritus Depression Kidney stones Diverticulosis Carotid artery occlusion <50% stenosis bilaterally, moderate atheromatous plaque bilaterally Ventricular arrhythmia PVC and NSVT Abnormal EKG incomplete rbbb Dyslipidemia History of malignant melanoma Surgical History History of bilateral cataract extraction History of cardiac catheterization 10/2021 - mild diffuse coronary artery disease. LVEDP of 3mmHg History of Mohs micrographic surgery for skin cancer History of submandibular gland removal right, benign History of rotator cuff surgery right Family History Mother , 88 Dementia Grandmother Stroke Father , 92, worked in the garden the day he No problems noted. Other Malignant melanoma Denies family history of Diabetes CAD (coronary artery disease) Clotting disorder Chronic kidney disease (CKD) Suicide Anesthesia complication Bleeding disorder Lung disease Cancer Social History Smoking and tobacco/nicotine status: former use of tobacco/nicotine Quit status (tobacco/nicotine): has quit using Year quit tobacco: 1999 Former quit date comment: 20 pack year history Alcohol intake: current Alcohol intake frequency: holidays/special occasions only Substance/Drug Use: never Household members: spouse Marital status: Number of children: 0 service: Yes status: Discharged branch: [employer] Current occupational status: retired 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 Special vesta needs: No Agree to transfusion: Yes Physical Exam Const: COMMON NORMALS: no acute distress GENERAL APPEARANCE: cooperative and comfortable ORIENTATION/CONSCIOUSNESS: Yes awake, Yes oriented to person, Yes oriented to place and Yes oriented to time HENMT: COMMON NORMALS: normocephalic, atraumatic and hearing grossly normal bilaterally HEAD & SCALP: normocephalic and atraumatic Resp: COMMON NORMALS: normal respiratory effort, No retractions, No use of accessory muscles and clear to auscultation bilaterally AUSCULTATION: clear to auscultation bilaterally Cardio: COMMON NORMALS: regular rate, regular rhythm and No murmurs present (Cardio) RATE: regular rate RHYTHM: regular rhythm GI: COMMON NORMALS: Soft to palpation and No hepatosplenomegaly present AUSCULTATION: Yes normoactive bowel sounds PALPATION: Yes Soft to palpation, No Tenderness to palpation present (GI), No Guarding due to palpation present (GI) and Yes No hepatosplenomegaly present Extremity: COMMON NORMALS: normal to inspection, capillary refill normal, no clubbing, cyanosis or edema, no calf tenderness and no pedal edema Neuro: SENSORIUM/ORIENTATION: Yes oriented to person, Yes oriented to place and Yes oriented to time Skin: COMMON NORMALS: no rashes or lesions noted GENERAL SKIN EXAM: no rashes or lesions noted Course Vital Signs: Vital signs: Vital Signs Temperature 97.9 F 08/29/24 08:08 Pulse Rate 86 08/29/24 13:00 Respiratory Rate 18 08/29/24 08:08 Blood Pressure 109/68 08/29/24 13:00 Pulse Oximetry 93 08/29/24 13:00 Oxygen Delivery Me thod Room Air 08/29/24 13:00 MDM - Chest Pain Medical Decision Making Patient has new pericardial effusion which was noted on the CT will get an echo for that he is having increasing exertional anginal symptoms that are increasing intensity over the last several days. Discussed with hospitalist and with cardiology will admit hospitalist to consult. Surgical Instrument Repair Specialist asked that we order a echo. Discussed with patient he has been pain-free since the application of the topical nitro. Lab Data 08/29/24 08:22 08/29/24 08:59 Radiology Impressions Chest X-Ray 08/29/24 08:21 IMPRESSION: No acute findings. Abdomen/Pelvis CT 08/29/24 10:14 IMPRESSION: 1. No hydronephrosis. 2. Bilateral nonobstructing renal calculi. 3. Mild perinephric stranding around the lower pole RIGHT kidney. Low-attenuation mass exophytic lower pole RIGHT kidney measures 11 mm. May be a small cyst. This can be evaluated by ultrasound. 4. Normal appendix. 5. No ascites. 6. New moderate circumferential pericardial effusion. 7. Bibasilar areas of mild pleural thickening and a very small LEFT pleural effusion. Laboratory Results WBC 8.86 10^3/uL (3.29-11.43) 08/29/24 08:22 RBC 4.60 10^6/uL (3.85-5.65) 08/29/24 08:22 Hgb 13.70 g/dL (11.27-16.99) 08/29/24 08:22 Hct 41.0 % (37-53) 08/29/24 08:22 MCV 89.1 fl (82-101) 08/29/24 08:22 MCH 29.8 pg (27-33) 08/29/24 08:22 MCHC 33.4 g/dL (30-55) 08/29/24 08:22 RDW 13.9 % (12.1-15.1) 08/29/24 08:22 Plt Count 230 10^3/cmm (157-399) 08/29/24 08:22 MPV 11.2 fL (7.4-10.4) H 08/29/24 08:22 Neut % (Auto) 71.3 % 08/29/24 08:22 Lymph % (Auto) 14.7 % 08/29/24 08:22 Tillman % (Auto) 9.8 % 08/29/24 08:22 Eos % (Auto) 3.5 % 08/29/24 08:22 Baso % (Auto) 0.5 % 08/29/24 08:22 Neut # (Auto) 6.32 10^3/uL (1.8-7.7) 08/29/24 08:22 Lymph # (Auto) 1.3 10^3/uL (0.8-4.8) 08/29/24 08:22 Tillman # (Auto) 0.9 10^3/uL (0.2-0.9) 08/29/24 08:22 Eos # (Auto) 0.3 10^3/uL (0.0-0.8) 08/29/24 08:22 Baso # (Auto) 0.0 10^3/uL (0.0-0.1) 08/29/24 08:22 Nucleated RBC % (auto) 0 % 08/29/24 08:22 Nucleated RBCs # 0.0 /100WBC 08/29/24 08:22 Sodium 136 mmol/L (136-145) 08/29/24 08:59 Potassium 4.2 mmol/L (3.5-5.1) 08/29/24 08:59 Chloride 98 mmol/L (98-107) 08/29/24 08:59 Carbon Dioxide 24 mmol/L (22-29) 08/29/24 08:59 Anion Gap 18.2 (5-19) 08/29/24 08:59 BUN 18 mg/dL (8-23) 08/29/24 08:59 Creatinine 1.3 mg/dL (0.7-1.2) H 08/29/24 08:59 GFR Calculation Not Reportable 08/29/24 08:59 Glucose 109 mg/dL (65-115) 08/29/24 08:59 Calculated Osmolality 284 mOsm/kg (285-295) L 08/29/24 08:59 Calcium 9.3 mg/dL (8.5-10.5) 08/29/24 08:59 Total Bilirubin 0.7 mg/dL (0.15-1.2) 08/29/24 08:59 AST 17 U/L (0-40) 08/29/24 08:59 ALT 17 U/L (0-41) 08/29/24 08:59 Alkaline Phosphatase 67 U/L (40-130) 08/29/24 08:59 Troponin T Baseline 24 ng/L (0-15) H 08/29/24 08:59 Troponin T 120 Minute 22.56 ng/L (0-15) H 08/29/24 10:20 Delta Troponin T -1.44 ABS# (0-10) L 08/29/24 10:20 NT-Pro-B Natriuret Pep 946 pg/mL (0-450) H 08/29/24 08:59 Total Protein 6.1 g/dL (6.6-8.7) L 08/29/24 08:59 Albumin 4.2 g/dL (3.5-5.2) 08/29/24 08:59 Globulin 1.9 g/dL (1.3-4.6) 08/29/24 08:59 Urine Color Yellow (Yellow) 08/29/24 08:50 Urine Appearance Clear (CLEAR) 08/29/24 08:50 Urine pH 5.5 (5-7) 08/29/24 08:50 Ur Specific [place] 1.020 (1.005-1.030) 08/29/24 08:50 Urine Protein Trace (Negative) A 08/29/24 08:50 Urine Glucose (UA) Negative (Normal) 08/29/24 08:50 Urine Ketones Trace (Negative) 08/29/24 08:50 Urine Blood 2+ (Negative) A 08/29/24 08:50 Urine Nitrate Negative (Negative) 08/29/24 08:50 Urine Bilirubin Negative (Negative) 08/29/24 08:50 Urine Urobilinogen 1.0 mg/dL (Negative) 08/29/24 08:50 Ur Leukocyte Esterase Negative (Negative) 08/29/24 08:50 Urine RBC 21-50 /hpf (0-2) H 08/29/24 08:50 Urine WBC 0-5 /hpf (0-5) 08/29/24 08:50 Ur Squamous Epith Cells 0-5 /hpf (0-5) 08/29/24 08:50 Amorphous Sediment Not Reportable 08/29/24 08:50 Urine Bacteria None seen /hpf (NONE) 08/29/24 08:50 Hyaline Casts 0-4 /lpf H 08/29/24 08:50 All radiology interpretation(s) finalized by discharge EKG Data EKG 1: Interpretation: EKG 08/29/2024 807 paced rhythm does not meet Sgarbossa's criteria rate of 92 no other interpretation possible EKG 2: Interpretation: EKG 429 2025-04-22 paced rhythm Rate of 84 no further interpretation possible Discharge Plan Discharge Patient Disposition: Admitted As Inpatient Clinical Impression: Exertional angina, Acute pericardial effusion, Cardiomyopathy Clinical Impression: (Ruled Out): Chest pain Condition: Stable Prescriptions: No Action simvastatin 5 mg tablet 10 mg PO DAILY amiodarone 200 mg tablet 200 mg PO QDAY Qty: 90 3RF Rx Instructions: 200 mg daily sacubitril-valsartan 24-26 mg tablet 1 tab PO BID Qty: 60 1RF apixaban 5 mg tablet 5 mg PO BID Qty: 540 3RF furosemide 20 mg tablet 20 mg PO DAILY Qty: 90 3RF potassium chloride 8 mEq capsule, extended release 8 meq PO DAILY Qty: 90 3RF amlodipine 5 mg tablet 5 mg PO DAILY PRN (Reason: hypertension) Qty: 90 3RF Rx Instructions: Blood pressure >130 systolic or 90 diastolic Referrals: Mallory Salazar MD [Primary Care Provider] - Print Language: Georgian Coding Level of Care Code ED Data Processing Equipment Repairer for Chg Archie
[2024-08-29 09:17] LABS: Bilirubin Urine Negative (Negative); Blood Urine 2+ (Negative); Glucose Urine UA Negative (Normal); Ketones Urine Trace (Negative); Leukocyte Esterase Urine Negative (Negative); Nitrate Urine Negative (Negative); Protein Urine Trace (Negative); Urine Appearance Clear (CLEAR); Urine Color Yellow (Yellow); pH Urine 5.5 (5-7)
[2024-08-29 09:21] LABS: Troponin(5th) Baseline 24 ng/L (0-15)
[2024-08-29 09:22] LABS: Add Urine Microscopic? YES; Bacteria Urine None Seen /hpf; Hyaline Casts Urine 0-4 /lpf; RBC Urine 21-50 /hpf (0-2); Squamous Epithelial Cell Urine 0-5 /hpf (0-5); WBC Urine 0-5 /hpf (0-5)
[2024-08-29 09:36] LABS: Alanine Aminotransferase 17 U/L (0-41); Albumin Level 4.2 g/dL (3.5-5.2); Alkaline Phosphatase 67 U/L (40-130); Anion Gap 18.2 (5-19); Aspartate Amino Transferase 17 U/L (0-40); Blood Urea Nitrogen 18 mg/dL (8-23); Calcium 9.3 mg/dL (8.5-10.5); Carbon Dioxide 24 mmol/L (22-29); Chloride 98 mmol/L (98-107); Creatinine Clr Calc Pharmacy 54.0814; Globulin 1.9 g/dL (1.3-4.6); Glucose 109 mg/dL (65-115); NT Pro B Type Natriuretic Pept 946 pg/mL (0-450); Osmolality Calculated 284 mOsm/kg (285-295); Potassium 4.2 mmol/L (3.5-5.1); Sodium 136 mmol/L (136-145); Total Bilirubin 0.7 mg/dL (0.15-1.2); Total Protein 6.1 g/dL (6.6-8.7)
[2024-08-29 09:40] LABS: Add Urine Culture? Yes; UA Slide Review UA Slide Review Perf
--- NOTE | 2024-08-29 10:14 | CT_ITS ---
WS: [id number] CT ABDOMEN AND PELVIS NONCONTRAST HISTORY: flank pain, RIGHT TECHNIQUE: Imaging performed through the abdomen and pelvis. Coronal and sagittal reformats are submitted. All CT scans at [facility] use at least one of these dose optimization techniques: automated exposure control; mA and/or kV adjustment per patient size (includes targeted exams where dose is matched to clinical indication); or iterative reconstruction. DLP: 457.28 mGy.cm COMPARISON: 09/23/2022 Lower thorax: Mild bilateral pleural thickening at the lung bases with a very small LEFT pleural effusion. Atelectasis at the LEFT lung base also. New circumferential moderate-sized pericardial effusion measuring up to 13 mm in diameter posteriorly. Pacer wire noted in the RIGHT heart. Liver: Normal size liver. No mass or bile duct dilatation. Gallbladder: Normally distended gallbladder with no adjacent thickening. There is mild heterogeneity within the gallbladder suggesting may be some sludge present. Pancreas: Poorly visualized head and neck due to adjacent GI tract. Spleen: Normal size with granulomata. Adrenal glands: Normal. No mass. Right kidney: Normal size kidney with nonobstructing calcifications. Exophytic low-attenuation mass from the lower pole measures 11 mm. Mild perinephric stranding. No ureteral calcification. Left kidney: Multiple nonobstructing renal calcifications. No hydroureter. Aorta: Mild atherosclerosis abdominal aorta with no aneurysm. No free fluid, intraperitoneal air or significant lymphadenopathy. GI tract: No obstruction. No appendicitis. No colitis. Abdominal wall: Negative. No hernia. Pelvis: No free fluid or adenopathy. No bladder calcifications. Osseous structures: L4 anterolisthesis by 5 mm. Remaining lumbar vertebral bodies demonstrate hypertrophic osteophytes. Scoliosis. CT/CT kidney stone [id number] IMPRESSION: 1. No hydronephrosis. 2. Bilateral nonobstructing renal calculi. 3. Mild perinephric stranding around the lower pole RIGHT kidney. Low-attenuat ion mass exophytic lower pole RIGHT kidney measures 11 mm. May be a small cyst. This can be evaluated by ultrasound. 4. Normal appendix. 5. No ascites. 6. New moderate circumferential pericardial effusion. 7. Bibasilar areas of mild pleural thickening and a very small LEFT pleural ef fusion.
--- NOTE | 2024-08-29 10:21 | ECG_ITS ---
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 Measurements Intervals [place] Rate: 84 P: 75 IA: 188 QRS: -77 QRSD: 158 T: 92 QT: 454 QTc: 538 Interpretive Statements ELECTRONIC VENTRICULAR PACEMAKER Compared to ECG 08/29/2024 08:07:50 No significant changes Electronically Signed On 09-04-2024 10:42:01 CDT by Gelacio Espinal M.D. [email or web address]
[2024-08-29 10:44] LABS: Troponin 5 2HR 22.56 ng/L (0-15)
[2024-08-29 10:47] LABS: Troponin 5 2HR Delta -1.44 ABS# (0-10)
--- NOTE | 2024-08-29 13:04 | USCV_ITS ---
Sixto Starks Age: 73 Gender: M : 1950 Exam Date: 08/29/2024 14:54 Ordering Phys: Esvin Singer DO Technologist: Exam Location: [facility] [place] Indication: ? per effusion BP: / HR: Rhythm: Sinus Technical Quality: Fair MEASUREMENTS (Male / Female) Normal Values 2D ECHO LV Diastolic Diameter PLAX 4.8 cm 4.2 - 5.9 / 3.9 - 5.3 cm IVS Diastolic Thickness 1.2 cm 0.6 - 1.0 / 0.6 - 0.9 cm IVS Systolic Thickness 1.3 cm LVPW Diastolic Thickness 1.3 cm 0.6 - 1.0 / 0.6 - 0.9 cm LVPW Systolic Thickness 1.9 cm LVOT Diameter 2.0 cm LV Ejection Fraction 2D Teich 31.3 % LV Ejection Fraction MOD 4C 35.1 % LV Ejection Fraction MOD 2C 33.1 % LV Ejection Fraction 2C AL 29.8 % LA Diameter 2.6 cm RA Systolic Volume 4C AL 60.2 ml RA Systolic Volume 4C MOD 58.5 ml Aorta at Sinotubular Diameter 2.5 cm IVC Diameter 2.9 cm M-MODE LA Ao Ratio MM 1.2 AV Cusp Separation MM 1.8 cm FINDINGS Left Ventricle Right Ventricle Right Atrium Left Atrium Mitral Valve Aortic Valve Tricuspid Valve Pulmonic Valve Pericardium Aorta IVC CONCLUSIONS LV systolic function is severely reduced with EF of 30-35%. Severe global hypokinesis. Small sized pericardial effusion seen. Gelacio Espinal MD (Electronically Signed) Final Date: 29 August 2024 19:26 S
[2024-08-29 14:36] LABS: Troponin 5 6HR 21.02 ng/L (0-15)
[2024-08-29 14:37] LABS: Troponin 5 6HR Delta -2.98 ng/L (0-12)
--- NOTE | 2024-08-29 15:09 | ECG_ITS ---
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 Measurements Intervals [place] Rate: 61 P: 0 OR: 0 QRS: -81 QRSD: 192 T: 91 QT: 491 QTc: 496 Interpretive Statements ELECTRONIC VENTRICULAR PACEMAKER Compared to ECG 08/29/2024 10:13:02 No significant changes Electronically Signed On 09-04-2024 10:41:08 CDT by Gelacio Espinal M.D. [email or web address]
[2024-08-29] MEDS: nitroglycerin 1 gm/inch oint Pkt 1 INCH TOPICAL (15:55)
--- NOTE | 2024-08-29 16:36 | P.CONIM_ITS ---
<Statement entered by Gelacio Espinal M.D - 08/31/24 07:24> Patient was evaluated and cared for in conjunction with an advanced practice practitioner.? I personally examined the patient and reviewed the chart and all pertinent data including imaging, telemetry, and laboratory results.? I discussed the patient in detail with the advanced practice practitioner.? Please see? their note for complete consult note, testing results and agreed upon plan of care for the patient. GENERAL: Patient is alert, awake and oriented x3. HEART: Regular S1 and S2 LUNGS: Clear to auscultate bilaterally. CENTRAL NERVOUS SYSTEM: Grossly nonfocal. EXTREMITIES: Lower extremities with out edema bilaterally. Patient's symptoms pleuritic. He also has tenderness on the chest wall. Possible pericarditis and costochondritis. Given elevated creatinine, we will plan for high-dose aspirin and colchicine once echocardiogram confirms pericardial effusion. No plan for stress test at this time as had recent coronary angiogram. Providers/Reason For Consult 2 Consulting Physician/Specialty*: Dr. Espinal Reason for Consult*: Chest pain Requesting Physician: Dr. Singer Attending Physician: Alley Vasques MD Primary Care Provider: Mallory Salazar MD History of Present Illness History of Present Illness Sixto Starks is a 73 year old male with a history of pacemaker placement on 03/21/2024 due to third-degree heart block and symptomatic bradycardia. Subsequently he developed chest pressure on the left side of the chest and was urgently taken to the [facility] for angiogram. At that time he was found to have nonobstructive coronary artery disease with mild left ventricular systolic dysfunction with an ejection fraction around 40%. He was discharged and then readmitted for left-sided pneumothorax and chest tube was placed. This resolved and he was discharged. Subsequent echo showed an ejection fraction of 28%. Patient was placed on Entresto in the clinic. He came in due to he stated around Wednesday he developed sharp chest pain that occurred with deep inspiration at the center of his chest. He also complains of tenderness to the left side of his chest. He states it has been worsening over the last few days. He decided to come in once it did not improve. He did take a nitro in the ER and reports this did help relieve his chest discomfort. At this time denies any shortness of breath and has mild chest tenderness to the left side of his chest. No crepitus is palpated in this area. Chest x-ray showed no acute findings. Abdomen pelvis CT incidentally found a new moderate pericardial effusion and a small left pleural effusion. At this time patient appears well compensated. Vitals are stable. No evidence of tamponade. Blood pressure is 116/69. Pulse is 83. Oxygen saturation 97% on room air. Echo has been done but not read. Troponins were checked and were fairly normal at 24-33-21. Probnp was 946, which is improved from previous at 1704. Review of Systems 2 Narrative: Consitutional: denies fever, chills, body aches, or changes in appetite, denies abnormal weight loss Eyes: Denies changes in vision Card: reports chest tenderness to the left side of the chest on palpation, denies palpitations, irregular heart rhythm, edema, syncope, reports shortness of breath on exertion, denies orthopne Resp: reports shortness of breath on exertion, denies hemoptysis, denies cough GI: denies abdominal pain, denies nausea or voimting, denies blood in stool : denies blood in urine, denies dysuria Musc: Denies extremity pain, denies limited range of motion or recent injury Skin: Denies rash, lesions, or wounds, denies changes to skin color Neuro: Denies nubmness in extremities, h/a, s/s of stroke Omar: Denies easy bruiding/bleeding Medications/Allergies Home Medications ?Medication ?Instructions ?Recorded ?Confirmed ?Last Taken ?Type apixaban 5 mg tablet 5 mg PO BID #540 tabs 08/29/24 08/28/24 Rx simvastatin 5 mg tablet 10 mg PO DAILY 06/15/24 04/01/2508/28/24 History furosemide 20 mg tablet 20 mg PO DAILY #90 tabs 06/0308/29/24 08/28/24 Rx potassium chloride 8 mEq 8 meq PO DAILY #90 caps 06/0308/29/24 08/28/24 Rx capsule,extended release amlodipine 5 mg tablet 5 mg PO DAILY PRN hypertensi on #90 07/24/24 08/29/24 08/29/24 Rx tabs amiodarone 200 mg tablet 200 mg PO QDAY Atrial fibril lation 08/14/24 08/29/24 08/28/24 Rx #90 tabs sacubitril 24 mg-valsartan 26 mg 1 tab PO BID #60 tabs 08/14/24 08/29/24 08/29/24 Rx tablet Allergies Allergy/AdvReac Type Severity Reaction Status Date / Time magnesium oxide Allergy Severe ADR-Diarrhe Verified 08/14/24 12:53 a terbinafine Allergy loss of Verified 08/14/24 12:53 taste Current Medications Generic Name Dose Route Start Last Admin Trade Name Néstorq PRN Reason Stop Dose Admin Nitroglycerin 1 inch 08/29/24 16:00 08/29/24 15:55 Nitroglycerin 1 Gm/Inch Oint Pkt TOPICAL 1 inch Q6H JOHANNA Administration Sacubitril/Valsartan 1 each 08/29/24 09:00 08/29/24 08:28 Sacubitril/Valsartan 24-26 Mg Tablet PO 1 each BID JOHANNA Administration PFSH Acute 2 PFSH: Medical History History of Holter monitoring 10/2021 NSR with PVCs and occasional NSVT History of sleep study 08/2022 History of squamous cell carcinoma of skin History of basal cell carcinoma of skin EDY (obstructive sleep apnea) not compliant with CPAP therapy Testosterone deficiency B12 deficiency Chronic pruritus Depression Kidney stones Diverticulosis Carotid artery occlusion <50% stenosis bilaterally, moderate atheromatous plaque bilaterally Ventricular arrhythmia PVC and NSVT Abnormal EKG incomplete rbbb Dyslipidemia History of malignant melanoma Surgical History History of bilateral cataract extraction History of cardiac catheterization 10/2021 - mild diffuse coronary artery disease. LVEDP of 3mmHg History of Mohs micrographic surgery for skin cancer History of submandibular gland removal right, benign History of rotator cuff surgery right Family History Mother , 88 Dementia Grandmother Stroke Father , 92, worked in the garden the day he No problems noted. Other Malignant melanoma Denies family history of Diabetes CAD (coronary artery disease) Clotting disorder Chronic kidney disease (CKD) Suicide Anesthesia complication Bleeding disorder Lung disease Cancer Social History Smoking and tobacco/nicotine status: former use of tobacco/nicotine Quit status (tobacco/nicotine): has quit using Year quit tobacco: 1999 Former quit date comment: 20 pack year history Alcohol intake: current Alcohol intake frequency: holidays/special occasions only Substance/Drug Use: never Household members: spouse Marital status: Number of children: 0 service: Yes status: Discharged branch: [place] Current occupational status: retired 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 Special vesta needs: No Agree to transfusion: Yes Vitals/I&O/Wt Last Vital Signs Temp 98.5 F 08/29/24 16:03 Pulse 83 08/29/24 16:09 Resp 20 H 08/29/24 16:03 BP 116/69 08/29/24 16:03 Pulse Ox 97 08/29/24 16:03 O2 Del Method Room Air 08/29/24 16:03 Weight last 48 hrs Weight 168 lb 4.8 oz Weight 165 lb Physical Exam 2 Narrative: General: No apparent distress, healthy appearing, well nourished HENMT: normoceophalic Muskuloskeletal: Full ROM Lymphatic: no lymphedema noted Respiratory: Normal respiratory effort, clear to auscultation bilaterally throughout all lung lewis, no use of accessory muscles Cardio: No JVD, regular rate, regular rhythm, heart tones slightly diminished, no murmurs, peripheral pulses 2+ radial palpated bilaterally GI: Normal to inspection, nondistended Extremities: Full ROM, normal, normal capillary refill, no cyanosis or edema Neuro: Alert and oriented x4, no focal motor deficits Psych: Affect normal, mental status grossly normal Skin: No rashes or lesions noted, no wounds Data 08/29/24 08:22 08/29/24 08:59 A&P Assessment and plan (1) Systolic CHF: Qualifiers: Heart failure chronicity: acute on chronic Qualified Code(s): I50.23 - Acute on chronic systolic (congestive) heart failure (2) Acute pericardial effusion: (3) Cardiomyopathy: Qualifiers: Cardiomyopathy type: non-obstructive hypertrophic Qualified Code(s): I 42.2 - Other hypertrophic cardiomyopathy (4) Presence of permanent cardiac pacemaker: Plan At this time, cause for chest pain is unknown. His symptoms that he is describing to me are atypical. He reports a sharp pressure at the center of his chest as well as tenderness to the left side of his chest. He also has associated shortness of breath. This could be due to underlying CHF as well as pericardial effusion. He is well compensated at this point. We will review echo and further recommendations to follow this. Thank you, Dr. Singer, for allowing us to care for this very pleasant 73 year old gentleman. PDMP PDMP Reviewed: Not Reviewed Consult Attestations 2 Medical Necessity Statement: Deferred to primary. Coding Level of Care Code Acute Code for Chg Fwd Diagnoses Acute on chronic systolic congestive heart failure I50.23 Heart failure chronicity: acute on chronic Acute pericardial effusion I30.9 Hypertrophic nonobstructive cardiomyopathy I42.2 Cardiomyopathy type: non-obstructive hypertrophic Presence of permanent cardiac pacemaker Z95.0
--- NOTE | 2024-08-29 18:18 | PM.HP ---
Providers/Chief Complaint Admitting Physician: Alley Vasuqes MD Primary Care Provider: Mallory Salzaar MD Chief Complaint: chest pain/sob History of Present Illness Sixto Starks is a 73 year old male with past medical history significant for sleep apnea, depression, third-degree heart block status post recent pacemaker implantation, Pneumothorax in 03/2024 s/p chest tube. In March 2024 he was admitted to the hospital with chief complaints of easy fatigability and substernal discomfort. He was found to be in third-degree heart block at the time. He underwent a pacemaker implantation on March 21, 2024. Patient also had a coronary angiogram at that time which showed a nonobstructive CAD and an ejection fraction of 40%. He was discharged from the hospital on March 23, 2024 He returned to the emergency room on 03/25/2024 with chief complaints of chest pain and was found to have a left-sided pneumothorax. Chest tube was placed at this time and was managed by general surgery. This resolved eventually and patient was discharged home in stable condition on 03/28/2024. On outpatient follow-up with cardiology in August 2024 he was noted to have a drop in his ejection fraction to 28% on echocardiogram dated July 28, 2024. Pacemaker check at that time had revealed 99.5% ventricular pacing and 15% atrial pacing. He was having symptoms of increasing dyspnea which were attributed to the progression of heart failure. Overall clinical picture was consistent with nonischemic cardiomyopathy. He was continued on amiodarone and anticoagulation with Eliquis. Entresto was added and patient was planned to undergo a pharmacological stress test as an outpatient. He presented to the emergency room today with chief complaints of chest pain which has been intermittent and related to exertion. Chest pain was relieved by rest. States he has been increasing in intensity and frequency over the last several days. Chest pain was relieved by nitro paste that was placed in the emergency room. CT of the abdomen and pelvis was performed which showed a new moderate circumferential pericardial effusion, bibasilar areas of mild pleural thickening and a small left pleural effusion. Incidentally noted exophytic right lower pole right kidney mass, possibly a cyst. An echocardiogram is currently awaited to estimate size of the pericardial effusion. He is currently hemodynamically stable with regards to blood pressure and heart rate. Saturating 97% on room air. EKG shows paced ventricular rhythm. Baseline troponin of 24, trending down to 22 and then 21 at 2 and 6 hours respectively. Review of Systems General: Reports: 10 or more systems reviewed and unremarkable except in HPI and below Const: Denies: fever(s), chills or body aches Eyes: Denies: change in vision, blurry vision or photophobia ENMT: Reports: hoarseness; Denies: throat pain, enlarged tonsils, odynophagia or nasal congestion Card: Denies: chest pain, palpitations, irregular heart rhythm, edema, swelling of feet/ankles, lightheadedness, pre-syncope, dyspnea on exertion or orthopnea Resp: Denies: dyspnea, productive cough, non-productive cough, wheezing, stridor, pain on inspiration, change in phlegm color, hemoptysis or chest congestion GI: Denies: abdominal pain, nausea, vomiting, hematemesis, coffee ground emesis, dysphagia, heartburn, diarrhea, constipation, GI cramping, change in stool character, hematochezia or melena : Denies: flank pain, dysuria, urinary frequency, urinary urgency, urinary hesitancy or hematuria Musc: Denies: neck pain, back pain, extremity pain, joint swelling, joint warmth or deformity Neuro: Denies: headache(s), numbness in extremities, weakness in extremities, sensory changes, difficulty walking, frequent falls, dizziness, vertigo, behavioral changes, Slurred speech present or seizure-like activity Psych: Denies: anxiety, depression, suicidal ideation or homicidal ideation Endo: Denies: polyuria, polydipsia, tired all the time, cold intolerance or hot flashes Omar/Lymph: Denies: easy bruising or easy bleeding Medications/Allergies Home Medications ?Medication ?Instructions ?Recorded ?Confirmed ?Last Taken ?Type apixaban 5 mg tablet 5 mg PO BID #540 tabs 06/15/24 08/29/24 08/28/24 Rx simvastatin 5 mg tablet 10 mg PO DAILY 06/15/24 08/29/24 08/28/24 History furosemide 20 mg tablet 20 mg PO DAILY #90 tabs 06/19/24 08/29/24 08/28/24 Rx potassium chloride 8 mEq 8 meq PO DAILY #90 caps 06/19/24 08/29/24 08/28/24 Rx capsule,extended release amlodipine 5 mg tablet 5 mg PO DAILY PRN hypertension #90 07/24/24 08/29/24 08/29/24 Rx tabs amiodarone 200 mg tablet 200 mg PO QDAY Atrial fibrillation 08/14/24 08/29/24 08/28/24 Rx #90 tabs sacubitril 24 mg-valsartan 26 mg 1 tab PO BID #60 tabs 08/14/24 08/29/24 08/29/24 Rx tablet Allergies Allergy/AdvReac Type Severity Reaction Status Date / Time magnesium oxide Allergy Severe ADR-Diarrhe Verified 08/14/24 12:53 a terbinafine Allergy loss of Verified 08/14/24 12:53 taste PFSH Acute PFSH: Medical History History of Holter monitoring 10/2021 NSR with PVCs and occasional NSVT History of sleep study 08/2022 History of squamous cell carcinoma of skin History of basal cell carcinoma of skin EDY (obstructive sleep apnea) not compliant with CPAP therapy Testosterone deficiency B12 deficiency Chronic pruritus Depression Kidney stones Diverticulosis Carotid artery occlusion <50% stenosis bilaterally, moderate atheromatous plaque bilaterally Ventricular arrhythmia PVC and NSVT Abnormal EKG incomplete rbbb Dyslipidemia History of malignant melanoma Surgical History History of bilateral cataract extraction History of cardiac catheterization 10/2021 - mild diffuse coronary artery disease. LVEDP of 3mmHg History of Mohs micrographic surgery for skin cancer History of submandibular gland removal right, benign History of rotator cuff surgery right Family History Mother , 88 Dementia Grandmother Stroke Father , 92, worked in the garden the day he No problems noted. Other Malignant melanoma Denies family history of Diabetes CAD (coronary artery disease) Clotting disorder Chronic kidney disease (CKD) Suicide Anesthesia complication Bleeding disorder Lung disease Cancer Social History Smoking and tobacco/nicotine status: former use of tobacco/nicotine Quit status (tobacco/nicotine): has quit using Year quit tobacco: 1999 Former quit date comment: 20 pack year history Alcohol intake: current Alcohol intake frequency: holidays/special occasions only Substance/Drug Use: never Household members: spouse Marital status: Number of children: 0 service: Yes status: Discharged branch: [place] [employer] Current occupational status: retired 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 Special vesta needs: No Agree to transfusion: Yes Vitals/I&O/Wt Last Vital Signs Temp 98.5 F 08/29/24 16:03 Pulse 83 08/29/24 16:09 Resp 20 H 08/29/24 16:03 BP 116/69 08/29/24 16:03 Pulse Ox 97 08/29/24 16:03 O2 Del Method Room Air 08/29/24 16:03 Weight last 48 hrs Weight 76.34 kg Weight 74.843 kg Physical Exam Narrative: General: No acute distress, AO x3 HEENT: PERRLA, pupils bilaterally equal and reactive, pallors not present Chest: Normal vesicular breath sounds, no added sounds, equal good air entry bilaterally CVS: S1-S2 regular, no murmurs, no tachycardia, no gallops, no rubs Abdomen: Soft, nontender, no organomegaly, bowel sounds present Neuro: No focal deficits, no facial deformity, AO x3, power 5/5 in all limbs Data 08/29/24 08:22 08/29/24 08:59 Other Labs: Radiology Impressions Chest X-Ray 08/29/24 08:21 IMPRESSION: No acute findings. Abdomen/Pelvis CT 08/29/24 10:14 IMPRESSION: 1. No hydronephrosis. 2. Bilateral nonobstructing renal calculi. 3. Mild perinephric stranding around the lower pole RIGHT kidney. Low-attenuation mass exophytic lower pole RIGHT kidney measures 11 mm. May be a small cyst. This can be evaluated by ultrasound. 4. Normal appendix. 5. No ascites. 6. New moderate circumferential pericardial effusion. 7. Bibasilar areas of mild pleural thickening and a very small LEFT pleural effusion. Laboratory Results WBC 8.86 10^3/uL (3.29-11.43) 08/29/24 08:22 RBC 4.60 10^6/uL (3.85-5.65) 08/29/24 08:22 Hgb 13.70 g/dL (11.27-16.99) 08/29/24 08:22 Hct 41.0 % (37-53) 08/29/24 08:22 MCV 89.1 fl (82-101) 08/29/24 08:22 MCH 29.8 pg (27-33) 08/29/24 08:22 MCHC 33.4 g/dL (30-55) 08/29/24 08:22 RDW 13.9 % (12.1-15.1) 08/29/24 08:22 Plt Count 230 10^3/cmm (157-399) 08/29/24 08:22 MPV 11.2 fL (7.4-10.4) H 08/29/24 08:22 Neut % (Auto) 71.3 % 08/29/24 08:22 Lymph % (Auto) 14.7 % 08/29/24 08:22 [place] % (Auto) 9.8 % 08/29/24 08:22 Eos % (Auto) 3.5 % 08/29/24 08:22 Baso % (Auto) 0.5 % 08/29/24 08:22 Neut # (Auto) 6.32 10^3/uL (1.8-7.7) 08/29/24 08:22 Lymph # (Auto) 1.3 10^3/uL (0.8-4.8) 08/29/24 08:22 [place] # (Auto) 0.9 10^3/uL (0.2-0.9) 08/29/24 08:22 Eos # (Auto) 0.3 10^3/uL (0.0-0.8) 08/29/24 08:22 Baso # (Auto) 0.0 10^3/uL (0.0-0.1) 08/29/24 08:22 Nucleated RBC % (auto) 0 % 08/29/24 08:22 Nucleated RBCs # 0.0 /100WBC 08/29/24 08:22 Sodium 136 mmol/L (136-145) 08/29/24 08:59 Potassium 4.2 mmol/L (3.5-5.1) 08/29/24 08:59 Chloride 98 mmol/L (98-107) 08/29/24 08:59 Carbon Dioxide 24 mmol/L (22-29) 08/29/24 08:59 Anion Gap 18.2 (5-19) 08/29/24 08:59 BUN 18 mg/dL (8-23) 08/29/24 08:59 Creatinine 1.3 mg/dL (0.7-1.2) H 08/29/24 08:59 GFR Calculation Not Reportable 08/29/24 08:59 Glucose 109 mg/dL (65-115) 08/29/24 08:59 Calculated Osmolality 284 mOsm/kg (285-295) L 08/29/24 08:59 Calcium 9.3 mg/dL (8.5-10.5) 08/29/24 08:59 Total Bilirubin 0.7 mg/dL (0.15-1.2) 08/29/24 08:59 AST 17 U/L (0-40) 08/29/24 08:59 ALT 17 U/L (0-41) 08/29/24 08:59 Alkaline Phosphatase 67 U/L (40-130) 08/29/24 08:59 Troponin T Baseline 24 ng/L (0-15) H 08/29/24 08:59 Troponin T 120 Minute 22.56 ng/L (0-15) H 08/29/24 10:20 Delta Troponin T -1.44 ABS# (0-10) L 08/29/24 10:20 Troponin T Hi Sens 6Hr 21.02 ng/L (0-15) H 08/29/24 14:15 Troponin T Hi Sens 6Hr Delta -2.98 ng/L (0-12) L 08/29/24 14:15 NT-Pro-B Natriuret Pep 946 pg/mL (0-450) H 08/29/24 08:59 Total Protein 6.1 g/dL (6.6-8.7) L 08/29/24 08:59 Albumin 4.2 g/dL (3.5-5.2) 08/29/24 08:59 Globulin 1.9 g/dL (1.3-4.6) 08/29/24 08:59 Urine Color Yellow (Yellow) 08/29/24 08:50 Urine Appearance Clear (CLEAR) 08/29/24 08:50 Urine pH 5.5 (5-7) 08/29/24 08:50 Ur Specific [place] 1.020 (1.005-1.030) 08/29/24 08:50 Urine Protein Trace (Negative) A 08/29/24 08:50 Urine Glucose (UA) Negative (Normal) 08/29/24 08:50 Urine Ketones Trace (Negative) 08/29/24 08:50 Urine Blood 2+ (Negative) A 08/29/24 08:50 Urine Nitrate Negative (Negative) 08/29/24 08:50 Urine Bilirubin Negative (Negative) 08/29/24 08:50 Urine Urobilinogen 1.0 mg/dL (Negative) 08/29/24 08:50 Ur Leukocyte Esterase Negative (Negative) 08/29/24 08:50 Urine RBC 21-50 /hpf (0-2) H 08/29/24 08:50 Urine WBC 0-5 /hpf (0-5) 08/29/24 08:50 Ur Squamous Epith Cells 0-5 /hpf (0-5) 08/29/24 08:50 Amorphous Sediment Not Reportable 08/29/24 08:50 Urine Bacteria None seen /hpf (NONE) 08/29/24 08:50 Hyaline Casts 0-4 /lpf H 08/29/24 08:50 A&P Assessment and plan (1) Chest pain: Qualifiers: Chest pain type: unspecified Qualified Code(s): R07.9 - Chest pain, unspecified (2) Pericardial effusion: Plan 73-year-old male with recent H&P as above who is currently admitted to the hospital after presenting with chest pain. Currently EKG is showing a paced ventricular rhythm. Troponin series without significantly elevated troponins, at baseline and in follow-up. Recent coronary angiogram performed in March 2024 did not show any obstructive CAD, overall less likely to be ACS. Pain may be related to pericardial effusion. Awaiting echocardiogram to determine extent of the effusion. No clinical signs of tamponade at this time. Will discuss with cardiology regarding initiation of colchicine and/or steroids. High-dose aspirin may be an option, however he is noted to have an incidental exophytic renal mass ? Cyst and microscopic hematuria noted on his urine analysis. Continue his home medications including amiodarone, amlodipine, hold apixaban in case planned for pericardiocentesis. Continue Entresto. Unlikely to be PE given that patient is on long-term anticoagulation CT of the abdomen and pelvis did not reveal any signs of aortic dissection Further recommendations to be made based on pending echocardiogram PDMP PDMP Reviewed: Not Reviewed Attestations Medical Necessity Statement*: At this time anticipating less than 2 midnight stay. Coding Level of Care Code Acute Code for Chg Fwd Diagnoses Chest pain, unspecified type R07.9 Chest pain type: unspecified Pericardial effusion I31.39
[2024-08-29] MEDS: ATORVASTATIN 10 MG TABLET 20 MG PO (21:12)
[2024-08-30] VITALS (7 sets, daily range): BP systolic 113–129; BP diastolic 68–85; PULSE 83–88; RESP 12–26; TEMP 36.5–37.4; O2SAT 91–96
[2024-08-30 05:48] LABS: Basophils % 0.6 %; Eosinophils # 0.2 10^3/uL (0.0-0.8); Eosinophils % 3.3 %; Hematocrit 37.7 % (37-53); Lymphocytes # 0.9 10^3/uL (0.8-4.8); Lymphocytes % 13.7 %; Mean Corpuscular HGB Conc 33.2 g/dL (30-55); Mean Corpuscular Hemoglobin 29.8 pg (27-33); Mean Platelet Volume 11.2 fL (7.4-10.4); Monocytes # 0.8 10^3/uL (0.2-0.9); Neutrophils # 4.45 10^3/uL (1.8-7.7); Neutrophils % 70.1 %; Nucleated Red Blood Cells % 0 %; Platelet Count 242 10^3/cmm (157-399); Red Blood Count 4.19 10^6/uL (3.85-5.65); Red Cell Distribution Width 13.7 % (12.1-15.1); White Blood Count 6.35 10^3/uL (3.29-11.43)
[2024-08-30 06:22] LABS: Alanine Aminotransferase 13 U/L (0-41); Albumin Level 3.5 g/dL (3.5-5.2); Alkaline Phosphatase 64 U/L (40-130); Anion Gap 14.4 (5-19); Aspartate Amino Transferase 13 U/L (0-40); Blood Urea Nitrogen 17 mg/dL (8-23); Carbon Dioxide 27 mmol/L (22-29); Chloride 104 mmol/L (98-107); Creatinine Clr Calc Pharmacy 54.7114; Globulin 2.5 g/dL (1.3-4.6); Glucose 101 mg/dL (65-115); Magnesium 2.1 mg/dL (1.7-2.3); Osmolality Calculated 294 mOsm/kg (285-295); Potassium 4.4 mmol/L (3.5-5.1); Sodium 141 mmol/L (136-145); Thyroid Stimulating Hormone 2.85 uIU/mL (0.27-4.20); Total Bilirubin 0.5 mg/dL (0.15-1.2)
[2024-08-30] MEDS: nitroglycerin 1 gm/inch oint Pkt 1 INCH TOPICAL ×2 (06:36→11:01)
[2024-08-30] MEDS: sacubitril/valsartan 24-26 mg Tablet 1 EACH PO (08:26)
[2024-08-30] MEDS: amiodarone 200 mg Tablet PO (08:26)
[2024-08-30] MEDS: FUROsemide 20 mg Tablet PO (08:26)
[2024-08-30] MEDS: aspirin 325 mg Tablet 650 MG PO (11:00)
[2024-08-30] MEDS: colchicine 0.6 mg Tablet PO (11:01)
[2024-08-30 11:39] LABS: Glucose Point of Care 106 mg/dL (70-110)
[2024-08-30 11:41] LABS: Adenovirus Not Detected (NOT DETECT); Chlamydia Pneumoniae Not Detected (NOT DETECT); Coronavirus 229E,HKU1,NL63,OC4 Not Detected (NOT DETECT); Human Metapneumovirus Not Detected (NOT DETECT); Human Rhinovirus/Enterovirus Not Detected (NOT DETECT); Influenza A Not Detected (NOT DETECT); Influenza A H1 Not Detected (NOT DETECT); Influenza A H1-2009 Not Detected (NOT DETECT); Influenza A H3 Not Detected (NOT DETECT); Influenza B Not Detected (NOT DETECT); Mycoplasma Pneumoniae Not Detected (NOT DETECT); Parainfluenza Virus Type 1 Not Detected (NOT DETECT); Parainfluenza Virus Type 2 Not Detected (NOT DETECT); Parainfluenza Virus Type 3 Not Detected (NOT DETECT); Parainfluenza Virus Type 4 Not Detected (NOT DETECT); Respiratory Syncytial Virus A Not Detected (NOT DETECT); Respiratory Syncytial Virus B Not Detected (NOT DETECT); SARS-COV-2 Not Detected (NOT DETECT)
--- NOTE | 2024-08-30 12:25 | PC.NURSE ---
Patient discharged to home. Instruction provided regarding follow up needs and referrals, new medications with changes. Patient and spouse both verbalized complete understanding. New medications transmitted to [facility]. IV and telemetry removed. Patient denies pain or needs. No distress observed. Taken by wheelchair to private vehicle.
--- NOTE | 2024-08-30 13:03 | P.DS_ITS ---
Discharge Providers Date of Admission: 08/29/24 15:01 Date of Discharge: August 30, 2024 Attending Provider at Admission: Alley Vasques MD Attending Provider at Discharge: Alley Vasques MD Primary Care Provider: Mallory Salazar MD Diagnoses at Discharge Discharge Diagnosis (1) Chest pain: Status: Resolved Qualifiers: Chest pain type: unspecified Qualified Code(s): R07.9 - Chest pain, unspecified (2) Pericardial effusion: Status: Acute Reason for Visit Reason for Visit: chest pain/sob Brief History: Sixto Starks is a 73 year old male with past medical history significant for sleep apnea, depression, third-degree heart block status post pacemaker implantation March 2024, nonobstructive CAD on angiogram at that time, pneumothorax in 03/2024 s/p chest tube which has since resolved. On outpatient follow-up with cardiology in August 2024 he was noted to have a drop in his ejection fraction to 28% on echocardiogram dated July 28, 2024. clinical picture was consistent with nonischemic cardiomyopathy.He presented to the emergency room with chief complaints of chest pain which has been intermittent and related to exertion. Chest pain was relieved by rest. States he has been increasing in intensity and frequency over the last several days. EKG showed paced ventricular rhythm. Baseline troponin of 24, trending down to 22 and then 21 at 2 and 6 hours respectively. Unlikely to be PE given that patient is on long-term anticoagulation. CT of the abdomen and pelvis did not reveal any signs of aortic dissection. Echocardiogram showed small sized pericardial effusion, which was also noted on CT of the abdomen and pelvis. There were no signs of tamponade. Potential concern for pericarditis with effusion as the cause of his chest pain. Patient has been started on aspirin 650 mg 3 times daily and colchicine 0.6 mg twice daily for treatment of pericarditis. EDDY panel has been taken and currently pending. Respiratory viral panel was negative for acute viral illness. Patient is recommended to stop Eliquis while he is on the high- dose aspirin to minimize risk of bleeding. Incidentally noted to have microscopic hematuria on serial urine analysis. Patient has a history of nephrolithiasis and about 1 year ago he required to have ureteral stenting in [place]. He has not had any urology follow-up since then. The stent was reportedly removed for his history. No known history of bladder malignancy. He was recommended to present back into the emergency room in case of gross hematuria. To consider cystoscopy as an outpatient for persistent microscopic hematuria. Referral provided to urology in [place] for outpatient follow-up. Protonix added for GI prophylaxis. Follow-up with cardiology in 7 to 10 days of discharge. Physical Exam Narrative: General: No acute distress, AO x3 HEENT: PERRLA, pupils bilaterally equal and reactive, pallors not present Chest: Normal vesicular breath sounds, no added sounds, equal good air entry bilaterally CVS: S1-S2 regular, no murmurs, no tachycardia, no gallops, no rubs Abdomen: Soft, nontender, no organomegaly, bowel sounds present Neuro: No focal deficits, no facial deformity, AO x3, power 5/5 in all limbs Discharge Data Studies Completed and Pending Completed Studies During Hospitalization Category Date Time Status CT kidney stone [id number] Stat Cat Scan 08/29/24 10:14 Completed XR chest 1V portable [id number] Stat Exams 08/29/24 08:21 Completed CV. echo limited [id number] Stat Ultrasound 08/29/24 13:04 Completed Pending at discharge Category Date Time Status EDDY Profile Rheumatology Routine Lab 08/30/24 09:54 Received Urine Culture Stat Lab 08/29/24 08:50 Results Radiology Impressions Chest X-Ray 08/29/24 08:21 IMPRESSION: No acute findings. Abdomen/Pelvis CT 08/29/24 10:14 IMPRESSION: 1. No hydronephrosis. 2. Bilateral nonobstructing renal calculi. 3. Mild perinephric stranding around the lower pole RIGHT kidney. Low- attenuation mass exophytic lower pole RIGHT kidney measures 11 mm. May be a small cyst. This can be evaluated by ultrasound. 4. Normal appendix. 5. No ascites. 6. New moderate circumferential pericardial effusion. 7. Bibasilar areas of mild pleural thickening and a very small LEFT pleural ef fusion. Laboratory Results WBC 6.35 10^3/uL (3.29-11.43) 08/30/24 03:46 RBC 4.19 10^6/uL (3.85-5.65) 08/30/24 03:46 Hgb 12.50 g/dL (11.27-16.99) 08/30/24 03:46 Hct 37.7 % (37-53) 08/30/24 03:46 MCV 90.0 fl (82-101) 08/30/24 03:46 MCH 29.8 pg (27-33) 08/30/24 03:46 MCHC 33.2 g/dL (30-55) 08/30/24 03:46 RDW 13.7 % (12.1-15.1) 08/30/24 03:46 Plt Count 242 10^3/cmm (157-399) 08/30/24 03:46 MPV 11.2 fL (7.4-10.4) H 08/30/24 03:46 Neut % (Auto) 70.1 % 08/30/24 03:46 Lymph % (Auto) 13.7 % 08/30/24 03:46 [place] % (Auto) 12.0 % 08/30/24 03:46 Eos % (Auto) 3.3 % 08/30/24 03:46 Baso % (Auto) 0.6 % 08/30/24 03:46 Neut # (Auto) 4.45 10^3/uL (1.8-7.7) 08/30/24 03:46 Lymph # (Auto) 0.9 10^3/uL (0.8-4.8) 08/30/24 03:46 [place] # (Auto) 0.8 10^3/uL (0.2-0.9) 08/30/24 03:46 Eos # (Auto) 0.2 10^3/uL (0.0-0.8) 08/30/24 03:46 Baso # (Auto) 0.0 10^3/uL (0.0-0.1) 08/30/24 03:46 Nucleated RBC % (auto) 0 % 08/30/24 03:46 Nucleated RBCs # 0.0 /100WBC 08/30/24 03:46 Sodium 141 mmol/L (136-145) 08/30/24 03:46 Potassium 4.4 mmol/L (3.5-5.1) 08/30/24 03:46 Chloride 104 mmol/L (98-107) 08/30/24 03:46 Carbon Dioxide 27 mmol/L (22-29) 08/30/24 03:46 Anion Gap 14.4 (5-19) 08/30/24 03:46 BUN 17 mg/dL (8-23) 08/30/24 03:46 Creatinine 1.3 mg/dL (0.7-1.2) H 08/30/24 03:46 GFR Calculation Not Reportable 08/30/24 03:46 Glucose 101 mg/dL (65-115) 08/30/24 03:46 POC Glucose 106 mg/dL (70-110) 08/30/24 11:33 Calculated Osmolality 294 mOsm/kg (285-295) 08/30/24 03:46 Calcium 9.0 mg/dL (8.5-10.5) 08/30/24 03:46 Magnesium 2.1 mg/dL (1.7-2.3) 08/30/24 03:46 Total Bilirubin 0.5 mg/dL (0.15-1.2) 08/30/24 03:46 AST 13 U/L (0-40) 08/30/24 03:46 ALT 13 U/L (0-41) 08/30/24 03:46 Alkaline Phosphatase 64 U/L (40-130) 08/30/24 03:46 Troponin T Baseline 24 ng/L (0-15) H 08/29/24 08:59 Troponin T 120 Minute 22.56 ng/L (0-15) H 08/29/24 10:20 Delta Troponin T -1.44 ABS# (0-10) L 08/29/24 10:20 Troponin T Hi Sens 6Hr 21.02 ng/L (0-15) H 08/29/24 14:15 Troponin T Hi Sens 6Hr Delta -2.98 ng/L (0-12) L 08/29/24 14:15 NT-Pro-B Natriuret Pep 946 pg/mL (0-450) H 08/29/24 08:59 Total Protein 6.0 g/dL (6.6-8.7) L 08/30/24 03:46 Albumin 3.5 g/dL (3.5-5.2) 08/30/24 03:46 Globulin 2.5 g/dL (1.3-4.6) 08/30/24 03:46 TSH 2.85 uIU/mL (0.27-4.20) 08/30/24 03:46 Urine Color Yellow (Yellow) 08/29/24 08:50 Urine Appearance Clear (CLEAR) 08/29/24 08:50 Urine pH 5.5 (5-7) 08/29/24 08:50 Ur Specific [place] 1.020 (1.005-1.030) 08/29/24 08:50 Urine Protein Trace (Negative) A 08/29/24 08:50 Urine Glucose (UA) Negative (Normal) 08/29/24 08:50 Urine Ketones Trace (Negative) 08/29/24 08:50 Urine Blood 2+ (Negative) A 08/29/24 08:50 Urine Nitrate Negative (Negative) 08/29/24 08:50 Urine Bilirubin Negative (Negative) 08/29/24 08:50 Urine Urobilinogen 1.0 mg/dL (Negative) 08/29/24 08:50 Ur Leukocyte Esterase Negative (Negative) 08/29/24 08:50 Urine RBC 21-50 /hpf (0-2) H 08/29/24 08:50 Urine WBC 0-5 /hpf (0-5) 08/29/24 08:50 Ur Squamous Epith Cells 0-5 /hpf (0-5) 08/29/24 08:50 Amorphous Sediment Not Reportable 08/29/24 08:50 Urine Bacteria None seen /hpf (NONE) 08/29/24 08:50 Hyaline Casts 0-4 /lpf H 08/29/24 08:50 Adenovirus (PCR) Not detected (NOT DETECT) 08/30/24 09:32 C. pneumoniae DNA (PCR) Not detected (NOT DETECT) 08/30/24 09:32 Coronavirus 229E (PCR) Not detected (NOT DETECT) 08/30/24 09:32 Human Metapneumovir PCR Not detected (NOT DETECT) 08/30/24 09:32 Influenza A (H1) PCR Not detected (NOT DETECT) 08/30/24 09:32 Influ A (H1/09) PCR Not detected (NOT DETECT) 08/30/24 09:32 Influenza A (H3) PCR Not detected (NOT DETECT) 08/30/24 09:32 Influenza Type A (PCR) Not detected (NOT DETECT) 08/30/24 09:32 Influenza Type B (PCR) Not detected (NOT DETECT) 08/30/24 09:32 M. pneumoniae (PCR) Not detected (NOT DETECT) 08/30/24 09:32 Parainfluenza 1 (PCR) Not detected (NOT DETECT) 08/30/24 09:32 Parainfluenza 2 (PCR) Not detected (NOT DETECT) 08/30/24 09:32 Parainfluenza 3 (PCR) Not detected (NOT DETECT) 08/30/24 09:32 Parainfluenza 4 (PCR) Not detected (NOT DETECT) 08/30/24 09:32 RSV Type A (PCR) Not detected (NOT DETECT) 08/30/24 09:32 RSV Type B (PCR) Not detected (NOT DETECT) 08/30/24 09:32 Entero/Rhino (PCR) Not detected (NOT DETECT) 08/30/24 09:32 SARS-CoV-2 (PCR) Not detected (NOT DETECT) 08/30/24 09:32 Vitals Last Vital Signs Temp 98.1 F 08/30/24 07:19 Pulse 83 08/30/24 12:23 Resp 18 08/30/24 12:23 BP 127/79 08/30/24 12:23 Pulse Ox 92 08/30/24 12:23 O2 Del Method Room Air 08/30/24 11:34 Discharge Plan Discharge Patient Disposition: Home Condition: Stable Prescriptions: New aspirin 325 mg Tablet 650 mg PO TID 30 Days Qty: 180 0RF colchicine 0.6 mg Tablet 0.6 mg PO BID 30 Days Qty: 60 0RF pantoprazole [Protonix] [address] for susp in packet 40 mg PO DAILY 28 Days Qty: 30 0RF Continued simvastatin 5 mg tablet 10 mg PO DAILY amiodarone 200 mg tablet 200 mg PO QDAY Qty: 90 3RF Rx Instructions: 200 mg daily sacubitril-valsartan 24-26 mg tablet 1 tab PO BID Qty: 60 1RF furosemide 20 mg tablet 20 mg PO DAILY Qty: 90 3RF potassium chloride 8 mEq capsule, extended release 8 meq PO DAILY Qty: 90 3RF amlodipine 5 mg tablet 5 mg PO DAILY PRN (Reason: hypertension) Qty: 90 3RF Rx Instructions: Blood pressure >130 systolic or 90 diastolic Held apixaban 5 mg tablet 5 mg PO BID Qty: 540 3RF Hold Instructions: Resume on 10/30/24. hold while on high dose aspirin Discharge Orders: Discharge Order (Routine); Ordered 08/30/24 Ordered By: Alley Vasques Referrals: Deandre Lamb [Referring, Urology] - 2 weeks Referral Note: We have sent new patient paperwork to the clinic. Once reviewed the clinic will contact you to schedule an appointment. Myriam Epstein NP [Nurse Practitioner, Cardiology] - 09/07/24 8:30 am Referral Note: hospital discharge follow up for pericarditis Mallory Salazar MD [Primary Care Provider, Family Practice] - 09/05/24 12:00 pm Referral Note: hospital discharge follow up, started tteatment for pericarditis Discharge Diet: Usual diet Discharge Activity: Resume usual activity Patient Instructions: Aspirin (By mouth), Colchicine (By mouth) (Colcrys, Mitigare, Lodoco, Gloperba), Pantoprazole (By mouth) (Protonix), Acute Pericarditis (DC), Pericardial Effusion (DC), Opioid Safety Plan of Treatment: Start ASpirin 650mg three times a day for 2 weeks. After 2 weeks, start tapering dose down by 250mg per week. Also take Colchicine 0.6mg BID daily Hold Eliquis while you remain on high dose Aspirin. Please follow up with your urologist for microscopic hematuria. Present to ER in case you see visible blood in your urine Discharge Attestations Time Spent in Discharge Care*: greater than 30 min Quality Metrics Clinical Quality Measures [ No reported AMI, CVA or VTE this stay] Coding Level of Care Code Acute Code for Chg Fwd Diagnoses Chest pain, unspecified type R07.9 Chest pain type: unspecified Pericardial effusion I31.39
--- NOTE | 2024-08-30 13:49 | PC.NURSE ---
Sent new patient paperwork to clinic to schedule appointment for patient.
--- NOTE | 2024-08-30 13:58 | P.PN_ITS ---
<Statement entered by Gelacio Espinal M.D - 08/31/24 07:34> Patient was evaluated and cared for in conjunction with an advanced practice practitioner.? I personally examined the patient and reviewed the chart and all pertinent data including imaging, telemetry, and laboratory results.? I discussed the patient in detail with the advanced practice practitioner.? Please see? their note for complete progress note, testing results and agreed upon plan of care for the patient. GENERAL: Patient is alert, awake and oriented x3. HEART: Regular S1 and S2 LUNGS: Clear to auscultate bilaterally. CENTRAL NERVOUS SYSTEM: Grossly nonfocal. EXTREMITIES: Lower extremities with out edema bilaterally. Echo findings consistent with pericarditis with small size pericardial effusion. Has LV dysfunction which is unchanged from before. We will stop Eliquis for now .. Discussed with patient in agreement with the plan. Will start high dose aspirin at 650mg TID for 2 weeks. Will also start colchicine. Patient wants to go home and is otherwise stable to be discharged home from cardiac standpoint. Please call with questions Subjective 2 Subjective: Patient states he still having tenderness and some signs of costochondritis on the left side of his chest. Echo showed small pericardial effusion. Vitals are stable. EF is 30 to 35%. Vitals/I&O/Wt Last Vital Signs Temp 98.1 F 08/30/24 07:19 Pulse 83 08/30/24 12:23 Resp 18 08/30/24 12:23 BP 127/79 08/30/24 12:23 Pulse Ox 92 08/30/24 12:23 O2 Del Method Room Air 08/30/24 11:34 08/29/24 08/30/24 08/30/24 22:59 06:59 14:59 Intake Total 340 / 340 0 / 340 360 / 360 Output Total 0 / 0 500 / 500 Balance 340 / 340 0 / 340 -140 / -140 Weight last 48 hrs Weight 170 lb Weight 168 lb 4.8 oz Weight 165 lb Physical Exam 2 Narrative: General: No apparent distress, healthy appearing, well nourished HENMT: normoceophalic Muskuloskeletal: Full ROM Respiratory: Normal respiratory effort, clear to auscultation bilaterally throughout all lung lewis, no use of accessory muscles Cardio: No JVD, regular rate, regular rhythm, heart tones slightly diminished, no murmurs, peripheral pulses 2+ radial palpated bilaterally GI: Normal to inspection, nondistended Extremities: Full ROM, normal, normal capillary refill, no cyanosis or edema Neuro: Alert and oriented x4, no focal motor deficits Psych: Affect normal, mental status grossly normal Skin: No rashes or lesions noted, Pacemaker Site clean dry intact Data 08/30/24 03:46 08/30/24 03:46 Micro: Microbiology 08/29/24 08:50 Urine Culture - Preliminary Urine,Clean Catch Gram Negative Rods A&P Assessment and plan (1) Systolic CHF: (2) Acute pericardial effusion: (3) Cardiomyopathy: (4) Presence of permanent cardiac pacemaker: Plan Patient has signs and symptoms most consistent with pericarditis. At this time we recommend aspirin 600 mg 3 times daily x 2 weeks with colchicine 0.6 mg twice daily x 3 months. If patient is doing okay without signs or symptoms of bleeding switch back to Eliquis 5 mg twice daily after 2 weeks and stop aspirin. PDMP PDMP Reviewed: Not Reviewed Attestations 2 Medical Necessity Statement*: May be discharged from cardiology standpoint Coding Level of Care Code Acute Code for Chg Fwd Diagnoses Acute on chronic systolic congestive heart failure I50.23 Heart failure chronicity: acute on chronic Acute pericardial effusion I30.9 Hypertrophic nonobstructive cardiomyopathy I42.2 Cardiomyopathy type: non-obstructive hypertrophic Presence of permanent cardiac pacemaker Z95.0
[2024-08-31 14:53] LABS: COMPLEMENT COMPONENT C3C 173 mg/dL (82-185); COMPLEMENT COMPONENT C4C 33 mg/dL (15-53); COMPLEMENT, TOTAL (CH50) 53 U/mL (31-60)
[2024-09-01 03:30] LABS: CENTROMERE B ANTIBODY <1.0 NEG AI (<1.0 NEG); JO-1 ANTIBODY <1.0 NEG AI (<1.0 NEG); RNP ANTIBODY <1.0 NEG AI (<1.0 NEG); SCL-70 ANTIBODY <1.0 NEG AI (<1.0 NEG); SJOGREN'S ANTIBODY (SS-A) <1.0 NEG AI (<1.0 NEG); SM ANTIBODY <1.0 NEG AI (<1.0 NEG); SS-B <1.0 NEG AI (<1.0 NEG)
[2024-09-01 15:44] LABS: ANA SCREEN, IFA NEGATIVE (NEGATIVE)
[2024-09-04 11:24] LABS: THYROID PEROXIDASE ANTIBODIES <1 IU/mL (<9)
[2024-09-05 12:20] LABS: DNA AB (DS) CRITHIDIA,IFA NEGATIVE (NEGATIVE)
== END 2024-08-30 12:29 | disposition home or self-care (01) ==
LOC: ER 14:18 → CSU 18:36
PROVIDERS: Admitting Provider Student in an Organized Health Care Education/Training Program; Emergency Provider Family Medicine; PCP Family Medicine; Visit Provider Student in an Organized Health Care Education/Training Program
DX: I31.39 Other pericardial effusion (noninflammatory) (principal); G47.33 Obstructive sleep apnea (adult) (pediatric); Z95.0 Presence of cardiac pacemaker; Z87.891 Personal history of nicotine dependence; Z86.79 Personal history of other diseases of the circulatory system; I50.20 Unspecified systolic (congestive) heart failure
CPT/HCPCS: 36415; 36416; 71045; 74176; 80053; 81001; 82962; 83735; 83880; 84443; 84484; 85025; 86160; 86162; 86235; 86255; 86376; 87077; 87086; 87186; 87486; 87581; 87633; 93005; 93308; 99285; A9270; G0378; J9999

== ENCOUNTER → 2024-09-07 08:15 | Outpatient (BNVA) | payer MEDICARE, OTHER, SELFPAY | PROVIDERS: PCP Family Medicine; Visit Provider Nurse Practitioner Family | DX: I50.23 Acute on chronic systolic (congestive) heart failure (principal); Z95.0 Presence of cardiac pacemaker | CPT/HCPCS: 36415; 80048; 85025; 99214 ==

== ENCOUNTER 2024-09-11 09:19 | Outpatient (CLI) | payer MEDICARE, OTHER, SELFPAY ==
[2024-09-11 11:07] LABS: Anion Gap 15.7 (5-19); Blood Urea Nitrogen 16 mg/dL (8-23); Calcium 9.5 mg/dL (8.5-10.5); Carbon Dioxide 26 mmol/L (22-29); Chloride 105 mmol/L (98-107); Glucose 101 mg/dL (65-115); Osmolality Calculated 295 mOsm/kg (285-295); Potassium 4.7 mmol/L (3.5-5.1); Sodium 142 mmol/L (136-145)
== END 2024-09-11 09:20 | disposition home or self-care (01) ==
LOC: LAB 09:19
PROVIDERS: PCP Family Medicine; Visit Provider Nurse Practitioner Family
DX: R42 Dizziness and giddiness (principal); I20.89 Other forms of angina pectoris
CPT/HCPCS: 36415; 80048

== ENCOUNTER 2024-09-15 08:36 | Outpatient (CLI) | payer MEDICARE, OTHER, SELFPAY ==
[2024-09-15 09:30] LABS: Basophils # 0.1 10^3/uL (0.0-0.1); Basophils % 1.2 %; Eosinophils # 0.4 10^3/uL (0.0-0.8); Lymphocytes # 1.4 10^3/uL (0.8-4.8); Lymphocytes % 23.7 %; Mean Corpuscular HGB Conc 33.3 g/dL (30-55); Mean Corpuscular Volume 90.3 fl (82-101); Mean Platelet Volume 10.9 fL (7.4-10.4); Monocytes # 0.5 10^3/uL (0.2-0.9); Monocytes % 7.5 %; Neutrophils % 61.3 %; Nucleated Red Blood Cells % 0 %; Platelet Count 253 10^3/cmm (157-399); Red Blood Count 4.43 10^6/uL (3.85-5.65); Red Cell Distribution Width 13.6 % (12.1-15.1); White Blood Count 6.03 10^3/uL (3.29-11.43)
[2024-09-15 09:50] LABS: Anion Gap 13.2 (5-19); Blood Urea Nitrogen 19 mg/dL (8-23); Calcium 9.4 mg/dL (8.5-10.5); Carbon Dioxide 28 mmol/L (22-29); Chloride 102 mmol/L (98-107); Glucose 105 mg/dL (65-115); Osmolality Calculated 291 mOsm/kg (285-295); Potassium 4.2 mmol/L (3.5-5.1); Sodium 139 mmol/L (136-145)
== END 2024-09-15 08:37 | disposition home or self-care (01) ==
PROVIDERS: PCP Family Medicine; Visit Provider Nurse Practitioner Family
DX: I50.23 Acute on chronic systolic (congestive) heart failure (principal)
CPT/HCPCS: 36415; 80048; 85025

== ENCOUNTER 2024-10-09 09:39 | Outpatient (CLI) | payer MEDICARE, OTHER, SELFPAY ==
[2024-10-09 10:33] LABS: Anion Gap 11.1 (5-19); Blood Urea Nitrogen 19 mg/dL (8-23); Calcium 9.2 mg/dL (8.5-10.5); Carbon Dioxide 28 mmol/L (22-29); Chloride 104 mmol/L (98-107); Glucose 97 mg/dL (65-115); Osmolality Calculated 288 mOsm/kg (285-295); Potassium 5.1 mmol/L (3.5-5.1); Sodium 138 mmol/L (136-145)
== END 2024-10-09 09:40 | disposition home or self-care (01) ==
LOC: LAB 09:43
PROVIDERS: PCP Family Medicine; Visit Provider Nurse Practitioner Family
DX: I31.39 Other pericardial effusion (noninflammatory) (principal); R06.02 Shortness of breath
CPT/HCPCS: 36415; 80048

== ENCOUNTER → 2024-10-11 10:38 | Outpatient (BNVA) | payer MEDICARE, OTHER, SELFPAY | PROVIDERS: PCP Family Medicine; Visit Provider Internal Medicine Cardiovascular Disease | DX: Z45.018 Encounter for adjustment and management of other part of cardiac pacemaker (principal) | CPT/HCPCS: 93296 ==

== ENCOUNTER 2024-11-07 09:03 | Outpatient (CLI) | payer MEDICARE, OTHER, SELFPAY ==
--- NOTE | 2024-11-07 09:15 | USCV_ITS ---
Sixto Starks Age: 73 Gender: M : 1950 Exam Date: 11/07/2024 09:24 Ordering Phys: Myriam Epstein NP Technologist: OCTAVIA [place] [facility] [place] SHF BP: 130 / 78 HR: Rhythm: Sinus Technical Quality: Adequate MEASUREMENTS (Male / Female) Normal Values 2D ECHO LV Diastolic Diameter PLAX 5.1 cm 4.2 - 5.9 / 3.9 - 5.3 cm IVS Diastolic Thickness 0.5 cm 0.6 - 1.0 / 0.6 - 0.9 cm IVS Systolic Thickness 1.1 cm LVPW Diastolic Thickness 1.1 cm 0.6 - 1.0 / 0.6 - 0.9 cm LVPW Systolic Thickness 1.6 cm LVOT Diameter 2.1 cm LV Ejection Fraction 2D Teich 40.0 % LV Ejection Fraction MOD 4C 38.5 % LV Ejection Fraction MOD 2C 47.3 % LV Ejection Fraction 2C AL 47.9 % LA Diameter 4.0 cm RA Systolic Volume 4C AL 34.4 ml RA Systolic Volume 4C MOD 33.5 ml LA Sys Volume AL 47.4 cm cubed LA Sys Volume Index AL 24.0 cm cubed/m squared Aorta at Sinotubular Diameter 2.5 cm IVC Diameter 2.1 cm M-MODE LA Ao Ratio MM 1.4 AV Cusp Separation MM 1.4 cm FINDINGS Left Ventricle Diffuse hypokinesis of the left ventricle, most of the septum and the anteroseptal segments. Mildly dilated LV cavity. LV ejection fraction of around 40%,, visual Right Ventricle Possibly normal RV size ejection fraction.mass noted in the right ventricle. Right Atrium Appears to be upper limit of normal size catheter/pacemaker wire in the right atrial cavity. Left Atrium Normal left atrial size. Mitral Valve No gross abnormalities noted Aortic Valve No gross abnormalities noted Tricuspid Valve No gross abnormalities noted Pulmonic Valve No gross abnormalities noted Pericardium No pericardial effusion. Aorta Normal aortic annulus size. IVC Inferior vena cava not visualized. CONCLUSIONS Diffuse hypokinesis of the left ventricle, most ly of the septum and the anteroseptal segments. Mildly dilated LV cavity. LV ejection fraction of around 40%,, visual. Both athere is no pericardial effusion. There are no intracardiac masses. tria, upper limit of normal size. Compared to the previous study from 08/28/2024, there is slight improvement in the LV ejection fraction from 30- 35% to 40% Dr Oz Bolton MD [facility] (Electronically Signed) Final Date: 09 November 2024 09:58 S
[2024-11-07 13:07] LABS: Blood Urea Nitrogen 23 mg/dL (8-23); Calcium 9.4 mg/dL (8.5-10.5); Carbon Dioxide 26 mmol/L (22-29); Chloride 105 mmol/L (98-107); Glucose 91 mg/dL (65-115); NT Pro B Type Natriuretic Pept 990 pg/mL (0-450); Osmolality Calculated 297 mOsm/kg (285-295); Sodium 142 mmol/L (136-145)
[2024-11-07 13:08] LABS: Anion Gap 15.7 (5-19); Potassium 4.7 mmol/L (3.5-5.1)
== END 2024-11-07 09:04 | disposition home or self-care (01) ==
LOC: RAD 09:04
PROVIDERS: Internal Medicine Cardiovascular Disease; PCP Family Medicine; Visit Provider Nurse Practitioner Family
DX: I65.23 Occlusion and stenosis of bilateral carotid arteries (principal); R03.0 Elevated blood-pressure reading, without diagnosis of hypertension; I42.8 Other cardiomyopathies; E78.5 Hyperlipidemia, unspecified; R06.02 Shortness of breath; R42 Dizziness and giddiness; Z79.01 Long term (current) use of anticoagulants; Z95.0 Presence of cardiac pacemaker; Z87.891 Personal history of nicotine dependence
CPT/HCPCS: 36415; 80048; 83880; 93308; 99214

== ENCOUNTER → 2024-11-13 10:36 | Outpatient (BNVA) | payer MEDICARE, OTHER, SELFPAY | PROVIDERS: PCP Family Medicine; Visit Provider Family Medicine | DX: R31.9 Hematuria, unspecified (principal) | CPT/HCPCS: 81003 ==

== ENCOUNTER 2024-12-06 11:20 | Outpatient (CLI) | payer MEDICARE, OTHER, SELFPAY ==
[2024-12-06 16:07] LABS: Hematocrit 45.4 % (37-53); Hemoglobin 15.00 g/dL (11.27-16.99); Mean Corpuscular HGB Conc 33.0 g/dL (30-55); Mean Corpuscular Hemoglobin 30.4 pg (27-33); Mean Corpuscular Volume 91.9 fl (82-101); Nucleated Red Blood Cells % 0 %; Platelet Count 190 10^3/cmm (157-399); Red Blood Count 4.94 10^6/uL (3.85-5.65); White Blood Count 6.74 10^3/uL (3.29-11.43)
[2024-12-06 16:27] LABS: Alanine Aminotransferase 14 U/L (0-41); Albumin Level 4.3 g/dL (3.5-5.2); Alkaline Phosphatase 58 U/L (40-130); Anion Gap 16.4 (5-19); Aspartate Amino Transferase 17 U/L (0-40); Blood Urea Nitrogen 23 mg/dL (8-23); Calcium 9.5 mg/dL (8.5-10.5); Carbon Dioxide 26 mmol/L (22-29); Chloride 104 mmol/L (98-107); Ferritin 428 ng/mL (30-400); Globulin 2.2 g/dL (1.3-4.6); Glucose 71 mg/dL (65-115); Iron 52 ug/dL (59-158); Osmolality Calculated 296 mOsm/kg (285-295); Potassium 4.4 mmol/L (3.5-5.1); Sodium 142 mmol/L (136-145); Total Iron Binding Capacity 236 mcg/dl; Total Protein 6.5 g/dL (6.6-8.7); Unsaturated Iron Binding 184 ug/dL (112-347)
[2024-12-06 16:43] LABS: Vitamin B12 572 pg/mL (232-1245)
== END 2024-12-06 11:21 | disposition home or self-care (01) ==
LOC: LAB 11:24
PROVIDERS: PCP Family Medicine; Visit Provider Nurse Practitioner Family
DX: L29.89 Other pruritus (principal); Z86.006 Personal history of melanoma in-situ; Z85.828 Personal history of other malignant neoplasm of skin; Z80.8 Family history of malignant neoplasm of other organs or systems; D37.01 Neoplasm of uncertain behavior of lip; L57.0 Actinic keratosis
CPT/HCPCS: 17000; 36415; 40490; 80053; 82607; 82728; 82746; 83540; 83550; 85025; 99214

== ENCOUNTER → 2024-12-13 08:42 | Outpatient (BNVA) | payer MEDICARE, OTHER, SELFPAY | PROVIDERS: PCP Family Medicine; Visit Provider Podiatrist Foot & Ankle Surgery | DX: L60.3 Nail dystrophy (principal) | CPT/HCPCS: 99203 ==

== ENCOUNTER → 2024-12-15 09:36 | Outpatient (BNVA) | payer MEDICARE, OTHER, SELFPAY | PROVIDERS: PCP Family Medicine; Visit Provider Nurse Practitioner Family | DX: I50.9 Heart failure, unspecified (principal); I42.0 Dilated cardiomyopathy; I65.29 Occlusion and stenosis of unspecified carotid artery; R03.0 Elevated blood-pressure reading, without diagnosis of hypertension; E78.5 Hyperlipidemia, unspecified; I95.9 Hypotension, unspecified; Z79.01 Long term (current) use of anticoagulants; Z95.0 Presence of cardiac pacemaker; Z87.891 Personal history of nicotine dependence | CPT/HCPCS: 99213 ==

== ENCOUNTER → 2025-02-05 10:35 | Outpatient (BNVA) | payer MEDICARE, OTHER, SELFPAY | PROVIDERS: PCP Family Medicine; Visit Provider Podiatrist Foot & Ankle Surgery | DX: B35.1 Tinea unguium (principal); M21.41 Flat foot [pes planus] (acquired), right foot; M21.42 Flat foot [pes planus] (acquired), left foot; R03.0 Elevated blood-pressure reading, without diagnosis of hypertension | CPT/HCPCS: 99213 ==

== ENCOUNTER → 2025-04-11 10:14 | Outpatient (BNVA) | payer MEDICARE, OTHER, SELFPAY | PROVIDERS: PCP Family Medicine; Visit Provider Internal Medicine Cardiovascular Disease | DX: Z45.018 Encounter for adjustment and management of other part of cardiac pacemaker (principal) | CPT/HCPCS: 93296 ==